=== PATIENT | male | born 1955 | race Hispanic/Latino ===

== ENCOUNTER 2018-01-20 22:39 | Observation (INO) | payer MEDICAID ==
[2018-01-20 22:52] VITALS: BMI 25.9
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
[2018-01-20 23:56] LABS: BASO # 0.05 K/mm3 (0.0-2.0); BASO % 0.7 % (0.0-3.0); EOS # 0.5 (0.0-0.7); GRAN # 3.57 (1.4-6.5); GRAN % 51.2 % (50.0-68.0); LYMPH # 2.3 (1.2-3.4); LYMPH % 32.3 % (22.0-35.0); MEAN CELL VOLUME 90.3 fl (80.0-105.0); MEAN CORPUSCULAR HEMOGLOBIN 30.4 pg (25.0-35.0); MEAN CORPUSCULAR HGB CONC 33.6 g/dl (31.0-37.0); MEAN PLATELET VOLUME 8.6 fl (7.0-11.0); MONO # 0.6 (0.1-0.6); MONO % 8.8 % (1.0-6.0); RBC 3.62 10^6/uL (3.5-6.1); RED CELL DISTRIBUTION WIDTH 13.8 % (11.5-14.5)
[2018-01-21 00:05] LABS: PH,URINE 6.5 (4.7-8.0); URINE BILIRUBIN NEGATIVE (NEGATIVE); URINE BLOOD NEGATIVE (NEGATIVE); URINE GLUCOSE (UA) NEGATIVE (NEGATIVE); URINE LEUKOCYTE ESTERASE NEGATIVE Leu/uL (NEGATIVE); URINE PROTEIN NEGATIVE mg/dL (<30 mg/dL); URINE UROBILINOGEN 0.2 E.U./dL (<1 E.U./dL)
[2018-01-21 00:09] LABS: ALB/GLOB RATIO 1.3 (1.1-1.8); ALT/SGPT 31 U/L (7-56); AST/SGOT 35 U/L (17-59); BLOOD UREA NITROGEN 21 mg/dL (7-21); CALCIUM 8.8 mg/dL (8.4-10.5); GFR NON-AFRICAN AMERICAN > 60
[2018-01-21 00:11] LABS: URINE APPEARANCE CLEAR (CLEAR); URINE COLOR YELLOW (YELLOW)
[2018-01-21] MEDS ORDERED: Vancomycin 1gm in NS 250ml 1 GM/250 ML BAG IVPB STA (00:36)
[2018-01-21] MEDS ORDERED: Piperacillin/Tazobact 3.375 gm 100 ML IV STA (00:36)
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
[2018-01-21] MEDS: Piperacillin/Tazobact 3.375 gm 100 ML IVPB SCH ×2 (06:24→12:50)
[2018-01-21 06:43] LABS: BASO # 0.05 K/mm3 (0.0-2.0); BASO % 0.8 % (0.0-3.0); EOS # 0.5 (0.0-0.7); EOS % 7.8 % (1.5-5.0); GRAN # 3.27 (1.4-6.5); HEMOGLOBIN 10.4 g/dL (14.0-18.0); LYMPH # 1.9 (1.2-3.4); MEAN CELL VOLUME 91.8 fl (80.0-105.0); MEAN CORPUSCULAR HEMOGLOBIN 30.6 pg (25.0-35.0); MEAN CORPUSCULAR HGB CONC 33.3 g/dl (31.0-37.0); MEAN PLATELET VOLUME 8.9 fl (7.0-11.0); MONO # 0.7 (0.1-0.6); MONO % 11.4 % (1.0-6.0); RBC 3.4 10^6/uL (3.5-6.1); RED CELL DISTRIBUTION WIDTH 14.1 % (11.5-14.5); WHITE BLOOD COUNT 6.4 10^3/ul (4.5-11.0)
[2018-01-21 07:09] LABS: ALB/GLOB RATIO 1.2 (1.1-1.8); ALBUMIN 3.5 g/dL (3.0-4.8); ALT/SGPT 29 U/L (7-56); AST/SGOT 32 U/L (17-59); BLOOD UREA NITROGEN 18 mg/dL (7-21); CALCIUM 8.4 mg/dL (8.4-10.5); GFR NON-AFRICAN AMERICAN > 60
[2018-01-21] MEDS: Vancomycin 1gm in NS 250ml 1 GM/250 ML BAG IVPB SCH (10:25)
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
[2018-01-21 17:21] VITALS: RESP 20
[2018-01-21] MEDS: cefTRIAXone 1 gm 1 GM/100 ML BAG IVPB SCH (17:58)
[2018-01-22 07:54] LABS: BASO # 0.06 K/mm3 (0.0-2.0); BASO % 1.1 % (0.0-3.0); EOS # 0.5 (0.0-0.7); GRAN # 2.84 (1.4-6.5); GRAN % 50.4 % (50.0-68.0); HEMOGLOBIN 10.9 g/dL (14.0-18.0); LYMPH # 1.7 (1.2-3.4); LYMPH % 29.7 % (22.0-35.0); MEAN CELL VOLUME 91.2 fl (80.0-105.0); MEAN CORPUSCULAR HEMOGLOBIN 29.9 pg (25.0-35.0); MEAN CORPUSCULAR HGB CONC 32.8 g/dl (31.0-37.0); MEAN PLATELET VOLUME 8.9 fl (7.0-11.0); MONO # 0.6 (0.1-0.6); MONO % 10.8 % (1.0-6.0); RBC 3.64 10^6/uL (3.5-6.1); RED CELL DISTRIBUTION WIDTH 13.9 % (11.5-14.5); WHITE BLOOD COUNT 5.6 10^3/ul (4.5-11.0)
[2018-01-22] MEDS ORDERED: Multivitamin With Minerals Tab PO SCH (08:00)
[2018-01-22 08:34] LABS: ALB/GLOB RATIO 1.1 (1.1-1.8); ALBUMIN 3.6 g/dL (3.0-4.8); ALT/SGPT 28 U/L (7-56); AST/SGOT 39 U/L (17-59); BLOOD UREA NITROGEN 18 mg/dL (7-21); CALCIUM 8.8 mg/dL (8.4-10.5); GFR NON-AFRICAN AMERICAN > 60
[2018-01-22 09:03] VITALS: PULSE 61; TEMP 97.7; O2SAT 95
[2018-01-22] MEDS: Vancomycin 1gm in NS 250ml 1 GM/250 ML BAG IVPB SCH (09:39)
[2018-01-22] MEDS: cefTRIAXone 1 gm 1 GM/100 ML BAG IVPB SCH (09:39)
[2018-01-22 09:45] VITALS: BP 122/76
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
--- NOTE | 2018-01-22 12:54 | CP.PCM.PN ---
Objective - Vital Signs/Intake and Output Vital Signs (last 24 hours): Temp Pulse Resp BP Pulse Ox 97.7 F 61 20 122/76 95 01/22/18 06:00 01/22/18 06:00 01/22/18 06:00 01/22/18 09:40 01/22/18 06:00 Intake and Output: 01/22/18 01/22/18 06:59 18:59 Intake Total 1260 Output Total 2050 Balance -790 - Medications Medications: Current Medications Amlodipine Besylate (Norvasc) 2.5 mg PO DAILY [facility] Last Admin: 01/22/18 09:40 Dose: 2.5 mg Furosemide (Lasix) 40 mg PO DAILY [facility] Last Admin: 01/22/18 09:38 Dose: 40 mg Vancomycin HCl (Vancomycin 1gm) 1 gm in 250 mls @ 167 mls/hr IVPB DAILY [facility]; Protocol Last Admin: 01/22/18 09:39 Dose: 167 mls/hr Ceftriaxone Sodium (Rocephin 1 Gram Ivpb) 1 gm in 100 mls @ 100 mls/hr IVPB DAILY [facility]; Protocol Last Admin: 01/22/18 09:39 Dose: 100 mls/hr Ibuprofen (Motrin Tab) 600 mg PO Q6H PRN PRN Reason: Pain, moderate (4-7) Last Admin: 01/21/18 23:47 Dose: 600 mg Multivitamins/Minerals (Therapeutic-M Tab) 1 tab PO 0800 [facility] Last Admin: 01/22/18 09:39 Dose: 1 tab Nicotine (Nicoderm Cq) 1 patch TD DAILY [facility] Last Admin: 01/22/18 09:42 Dose: Not Given Risperidone (Risperdal Tab) 2 mg PO HS [facility]; Protocol Last Admin: 01/21/18 21:30 Dose: 2 mg Risperidone (Risperdal Tab) 1 mg PO 0730 [facility]; Protocol Last Admin: 01/22/18 09:42 Dose: 1 mg Tramadol HCl (Ultram) 25 mg PO TID PRN PRN Reason: Pain, severe (8-10) Last Admin: 01/22/18 09:41 Dose: 25 mg - Labs Labs: 01/22/18 07:30 01/22/18 07:30
--- NOTE | 2018-01-22 13:57 | RAD ---
Date of service: 01/21/2018 PROCEDURE: Radiographs of the left tibia and fibula. HISTORY: left leg ulcer COMPARISON: None available. TECHNIQUE: Frontal and lateral views obtained. FINDINGS: BONES: No evidence of acute osteomyelitis. JOINT SPACES: Unremarkable. OTHER FINDINGS: Soft tissue ulceration at the junction of the middle and distal thirds the visualize lower extremity without adjacent cortical erosions or other findings consequence. Diffuse lower extremity edema. IMPRESSION: Large T2 ulcer marked on the study for review without adjacent or underlying osteomyelitis. Diffuse lower extremity edema.
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
--- NOTE | 2018-01-23 16:28 | US ---
HISTORY: Leg pain and swelling. Evaluate for DVT PHYSICIAN(S): Ashish Beard MD. TECHNIQUE: Duplex sonography and color-flow Doppler with graded compression were used to evaluate the deep venous systems of both lower extremities. FINDINGS: The visualized deep venous systems of both lower extremities are sonographically normal and compressible. Normal wave forms and augmentation are seen. There is no sonographic evidence for deep venous thrombosis in the visualized segments of both lower extremities. IMPRESSION: No sonographic evidence for deep venous thrombosis in the visualized segments of both lower extremities.
--- NOTE | 2018-01-23 16:51 | CP.PCM.DIS ---
Provider - Provider Date of Admission: 01/21/18 00:45 Attending physician: Roderick Miller MD Primary care physician: Dr Diya Loyd Consults: podiatry ID Time Spent in preparation of Discharge (in minutes): 45 Hospital Course - Lab Results Lab Results: Micro Results 01/21/18 00:48 Leg - Left Gram Stain - Final 01/21/18 00:48 Leg - Left Wound Culture - Preliminary Gram Positive Cocci 01/21/18 00:20 Blood-Venous Blood Culture - Preliminary NO GROWTH AFTER 48 HOURS 01/20/18 23:44 Blood-Venous Blood Culture - Preliminary NO GROWTH AFTER 48 HOURS 01/20/18 23:50 Urine Urine Culture - Final No Growth (<1,000 CFU/ML) Most Recent Lab Values WBC 5.6 10^3/ul (4.5-11.0) 01/22/18 07:30 RBC 3.64 10^6/uL (3.5-6.1) 01/22/18 07:30 Hgb 10.9 g/dL (14.0-18.0) L 01/22/18 07:30 Hct 33.2 % (42.0-52.0) L 01/22/18 07:30 MCV 91.2 fl (80.0-105.0) 01/22/18 07:30 MCH 29.9 pg (25.0-35.0) 01/22/18 07:30 MCHC 32.8 g/dl (31.0-37.0) 01/22/18 07:30 RDW 13.9 % (11.5-14.5) 01/22/18 07:30 Plt Count 160 10^3/uL (120.0-450.0) 01/22/18 07:30 MPV 8.9 fl (7.0-11.0) 01/22/18 07:30 Gran % 50.4 % (50.0-68.0) 01/22/18 07:30 Lymph % (Auto) 29.7 % (22.0-35.0) 01/22/18 07:30 [place] % (Auto) 10.8 % (1.0-6.0) H 01/22/18 07:30 Eos % (Auto) 8.0 % (1.5-5.0) H 01/22/18 07:30 Baso % (Auto) 1.1 % (0.0-3.0) 01/22/18 07:30 Gran # 2.84 (1.4-6.5) 01/22/18 07:30 Lymph # (Auto) 1.7 (1.2-3.4) 01/22/18 07:30 [place] # (Auto) 0.6 (0.1-0.6) 01/22/18 07:30 Eos # (Auto) 0.5 (0.0-0.7) 01/22/18 07:30 Baso # (Auto) 0.06 K/mm3 (0.0-2.0) 01/22/18 07:30 ESR 24 mm/hr (0.00-15.0) H 01/22/18 07:30 Sodium 137 mmol/L (132-148) 01/22/18 07:30 Potassium 4.0 mmol/L (3.6-5.0) 01/22/18 07:30 Chloride 103 mmol/L (98-107) 01/22/18 07:30 Carbon Dioxide 28 mmol/L (21-33) 01/22/18 07:30 Anion Gap 10 (10-20) 01/22/18 07:30 BUN 18 mg/dL (7-21) 01/22/18 07:30 Creatinine 0.9 mg/dl (0.8-1.5) 01/22/18 07:30 Est GFR ( Amer) > 60 01/22/18 07:30 Est GFR (Non-Af Amer) > 60 01/22/18 07:30 Random Glucose 105 mg/dL (70-110) 01/22/18 07:30 Calcium 8.8 mg/dL (8.4-10.5) 01/22/18 07:30 Phosphorus 4.8 mg/dL (2.5-4.5) H 01/22/18 07:30 Magnesium 2.0 mg/dL (1.7-2.2) 01/22/18 07:30 Total Bilirubin 0.4 mg/dL (0.2-1.3) 01/22/18 07:30 AST 39 U/L (17-59) 01/22/18 07:30 ALT 28 U/L (7-56) 01/22/18 07:30 Alkaline Phosphatase 64 U/L (38-126) 01/22/18 07:30 Total Protein 6.8 g/dL (5.8-8.3) 01/22/18 07:30 Albumin 3.6 g/dL (3.0-4.8) 01/22/18 07:30 Globulin 3.2 gm/dL 01/22/18 07:30 Albumin/Globulin Ratio 1.1 (1.1-1.8) 01/22/18 07:30 Urine Color Yellow (YELLOW) 01/20/18 23:50 Urine Appearance Clear (CLEAR) 01/20/18 23:50 Urine pH 6.5 (4.7-8.0) 01/20/18 23:50 Ur Specific [place] 1.020 (1.005-1.035) 01/20/18 23:50 Urine Protein Negative mg/dL (<30 mg/dL) 01/20/18 23:50 Urine Glucose (UA) Negative mg/dL (NEGATIVE) 01/20/18 23:50 Urine Ketones Negative mg/dL (NEGATIVE) 01/20/18 23:50 Urine Blood Negative (NEGATIVE) 01/20/18 23:50 Urine Nitrate Negative (NEGATIVE) 01/20/18 23:50 Urine Bilirubin Negative (NEGATIVE) 01/20/18 23:50 Urine Urobilinogen 0.2 E.U./dL (<1 E.U./dL) 01/20/18 23:50 Ur Leukocyte Esterase Negative Cammie/uL (NEGATIVE) 01/20/18 23:50 - Hospital Course Hospital Course: 62 yo M with PMHx of bipolar disorder, schizophrenia, anxiety, depression, and prostate cancer (in remission) [place] [facility] [place] cellulitis. Patient was previously [place] [facility] [place] received IV antibiotics and then discharged home on oral abx which he said it's not effective. Patient was admitted for celllitis amnagement. Doppler LLE was negative for DVT. LL Xray negative for osteomyelitis. Patient was started on IV antiotic recommended by ID physician. Podiatry was the patient and patient received wound care and dressing. Wound was 3x5cm in diameter, clean, no drainage with no signs of infection. wound culture is positive for gram positive cocci. Podiatry recommended outpatient wound care. ID recommended Clindamycin 300 mg 3 times a day for 10 days. Patient was clinically optimized, afebrile, ambulating with no difficulty and was stable for discharge today. On discharge: Please follow up with your Primary Care Physician, Dr Diya Loyd within 3-5 days of discharge. Please follow up with your wound care center within 3-5 days Please resume your home meds as prescribed by your doctor Please keep watching your blood sugar daily and stay hydrated. Eat all meals. Please take Clindamycin 300 mg 3 times a day for 10 days as prescribed by infectious disease doctor Please follow a diabetic diet If your symptoms return, please return to nearest emergency room. Discharge Exam - Head Exam Head Exam: ATRAUMATIC, NORMOCEPHALIC - Eye Exam Eye Exam: Normal appearance, PERRL Pupil Exam: NORMAL ACCOMODATION - ENT Exam ENT Exam: Normal Exam, Normal Oropharynx - Neck Exam Neck exam: Full Rom, Normal Inspection - Respiratory Exam Respiratory Exam: Clear to PA & Lateral, NORMAL BREATHING PATTERN. absent: Rales, Rhonchi, Wheezes - Cardiovascular Exam Cardiovascular Exam: REGULAR RHYTHM, +S1, +S2 - GI/Abdominal Exam GI & Abdominal Exam: Normal Bowel Sounds, Soft - Extremities Exam Extremities exam: normal capillary refill, pedal pulses present Additional comments: left lower thigh wound, clean, no drainage, no signs of infection b/l LL edema - Back Exam Back exam: FULL ROM, NORMAL INSPECTION - Neurological Exam Neurological exam: Alert, CN II-XII Intact, Normal Gait, Oriented x3 - Psychiatric Exam Psychiatric exam: Normal Affect, Normal Mood - Skin Skin Exam: Dry, Erythema Additional comments: skin ulcer LLL Discharge Plan - Discharge Medications Prescriptions: amLODIPine [Norvasc] 2.5 mg PO DAILY #30 tab Clindamycin [Cleocin] 300 mg PO TID #30 cap Furosemide [Lasix] 40 mg PO DAILY #30 tab - Follow Up Plan Condition: STABLE Disposition: HOME/ ROUTINE Instructions: Cellulitis (Skin Infection), Adult (DC) Additional Instructions: Please follow up with your Primary Care Physician, Dr Diya Loyd within 3-5 days of discharge. Please follow up with your wound care center within 3-5 days Please resume your home meds as prescribed by your doctor Please keep watching your blood sugar daily and stay hydrated. Eat all meals. Please take Clindamycin 300 mg 3 times a day for 10 days as prescribed by jono sparks disease doctor Please follow a diabetic diet If your symptoms return, please return to nearest emergency room.
== END 2018-01-22 15:54 | disposition home or self-care (01) ==
LOC: ED 22:39 → ERH 01-21 00:45 → 3RSO 01-21 02:20
PROVIDERS: ADMIT Internal Medicine; ATTEND Internal Medicine
DX: L03.116 Cellulitis of left lower limb (principal); L03.115 Cellulitis of right lower limb; F20.9 Schizophrenia, unspecified; F31.9 Bipolar disorder, unspecified; I10 Essential (primary) hypertension; Z85.46 Personal history of malignant neoplasm of prostate; Z90.49 Acquired absence of other specified parts of digestive tract; F17.210 Nicotine dependence, cigarettes, uncomplicated; Z86.19 Personal history of other infectious and parasitic diseases; B95.7 Other staphylococcus as the cause of diseases classified elsewhere
CPT/HCPCS: 36415; 73590; 80053; 81003; 83735; 84100; 85025; 85651; 87040; 87070; 87086; 87181; 93970; 99285; G0378; J0696; J2543

== ENCOUNTER 2018-02-04 19:29 | Inpatient (IN) | payer MEDICAID, OTHER ==
[2018-02-04] MEDS ORDERED: CeFAZolin 1 gm in NS 100ml IVPB STA (20:27)
[2018-02-04] MEDS ORDERED: ceFAZolin 1 gm in NS 1 GM/100 ML BAG IVPB STA (20:31)
[2018-02-04 20:48] LABS: VENOUS BLOOD GAS BASE EXCESS 3.2 mmol/L (0.0-2.0); VENOUS BLOOD GAS PO2 80 mm/Hg (30-55); VENOUS BLOOD PH 7.43 (7.32-7.43)
[2018-02-04 20:50] LABS: BASO # 0.05 K/mm3 (0.0-2.0); EOS # 0.4 (0.0-0.7); EOS % 7.3 % (1.5-5.0); GRAN # 2.36 (1.4-6.5); GRAN % 47.6 % (50.0-68.0); HEMOGLOBIN 12.5 g/dL (14.0-18.0); LYMPH # 1.8 (1.2-3.4); LYMPH % 35.6 % (22.0-35.0); MEAN CELL VOLUME 91.3 fl (80.0-105.0); MEAN CORPUSCULAR HEMOGLOBIN 31.2 pg (25.0-35.0); MEAN CORPUSCULAR HGB CONC 34.2 g/dl (31.0-37.0); MEAN PLATELET VOLUME 8.7 fl (7.0-11.0); MONO # 0.4 (0.1-0.6); MONO % 8.5 % (1.0-6.0); RBC 4.01 10^6/uL (3.5-6.1); RED CELL DISTRIBUTION WIDTH 14.2 % (11.5-14.5)
[2018-02-04] MEDS ORDERED: Enoxaparin 80 mg Syringe SC STA (20:50)
[2018-02-04 21:06] LABS: INR 0.9; PARTIAL THROMBOPLASTIN TIME 28.5 Seconds (25.1-36.5); PROTHROMBIN TIME 10.2 SECONDS (9.4-12.5)
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
[2018-02-04 21:22] LABS: ALB/GLOB RATIO 1.2 (1.1-1.8); ALBUMIN 4.3 g/dL (3.0-4.8); ALT/SGPT 22 U/L (7-56); AST/SGOT 25 U/L (17-59); BLOOD UREA NITROGEN 16 mg/dL (7-21); CALCIUM 9.2 mg/dL (8.4-10.5); GFR NON-AFRICAN AMERICAN > 60
[2018-02-04 22:29] LABS: BARBITURATES, UR NEGATIVE (NEGATIVE); BENZODIAZEPINES, UR NEGATIVE (NEGATIVE); OPIATES, UR NEGATIVE (NEGATIVE); PHENCYCLIDINE, UR NEGATIVE (NEGATIVE)
[2018-02-05] MEDS: Vancomycin 1gm in NS 250ml 1 GM/250 ML BAG IVPB SCH ×2 (00:48→10:22)
[2018-02-05 01:25] LABS: URINE BILIRUBIN NEGATIVE (NEGATIVE); URINE BLOOD NEGATIVE (NEGATIVE); URINE GLUCOSE (UA) NEGATIVE (NEGATIVE); URINE LEUKOCYTE ESTERASE NEGATIVE Leu/uL (NEGATIVE); URINE PROTEIN NEGATIVE mg/dL (<30 mg/dL)
[2018-02-05 01:36] LABS: URINE APPEARANCE CLEAR (CLEAR); URINE COLOR YELLOW (YELLOW)
[2018-02-05 03:08] VITALS: BMI 26.1
[2018-02-05] MEDS ORDERED: Influenza Vaccine 60 mcg/0.5 mL SYR (4YR UP) IM ONE (03:08)
[2018-02-05] MEDS ORDERED: Pneumococcal 23-Valent Vaccine IM ONE (03:08)
[2018-02-05] MEDS: Pantoprazole 40 mg EC Tab PO SCH (05:22)
[2018-02-05] MEDS ORDERED: Piperacillin/Tazobact 3.375 gm 100 ML IVPB SCH ×2 (06:00)
[2018-02-05] MEDS: Multivitamin Therapeutic Tab PO SCH (08:22)
[2018-02-05 08:31] LABS: BASO # 0.04 K/mm3 (0.0-2.0); BASO % 0.9 % (0.0-3.0); EOS # 0.3 (0.0-0.7); EOS % 7.8 % (1.5-5.0); GRAN # 1.97 (1.4-6.5); GRAN % 45.3 % (50.0-68.0); HEMOGLOBIN 11.5 g/dL (14.0-18.0); LYMPH # 1.6 (1.2-3.4); LYMPH % 36.3 % (22.0-35.0); MEAN CELL VOLUME 91.6 fl (80.0-105.0); MEAN CORPUSCULAR HEMOGLOBIN 30.1 pg (25.0-35.0); MEAN CORPUSCULAR HGB CONC 32.9 g/dl (31.0-37.0); MEAN PLATELET VOLUME 9.3 fl (7.0-11.0); MONO # 0.4 (0.1-0.6); MONO % 9.7 % (1.0-6.0); RBC 3.82 10^6/uL (3.5-6.1); RED CELL DISTRIBUTION WIDTH 14.6 % (11.5-14.5); WHITE BLOOD COUNT 4.4 10^3/ul (4.5-11.0)
[2018-02-05 08:37] LABS: INR 0.93; PARTIAL THROMBOPLASTIN TIME 30.6 Seconds (25.1-36.5); PROTHROMBIN TIME 10.7 SECONDS (9.4-12.5)
[2018-02-05 08:46] LABS: ALB/GLOB RATIO 1.1 (1.1-1.8); ALBUMIN 3.7 g/dL (3.0-4.8); ALT/SGPT 19 U/L (7-56); AST/SGOT 21 U/L (17-59); BLOOD UREA NITROGEN 17 mg/dL (7-21); CALCIUM 8.8 mg/dL (8.4-10.5); GFR NON-AFRICAN AMERICAN > 60
[2018-02-05] MEDS: Enoxaparin 120 mg Syringe SC SCH (09:26)
[2018-02-05] MEDS: Mupirocin 2% Ointment 15 GM TUBE TOP SCH ×2 (10:23→18:24)
--- NOTE | 2018-02-05 11:39 | CARD ---
APPROVED REPORT Date of service: 02/04/2018 EKG Measurement Heart [id number] <Conclusion> Sinus tachycardia Otherwise normal ECG
[2018-02-05] MEDS: Vitamins A & D Oint UD Foilpak TOP SCH (13:30)
--- NOTE | 2018-02-05 17:41 | RAD ---
Date of service: 02/04/2018 HISTORY: Sepsis Patient COMPARISON: No prior. FINDINGS: LUNGS: No active pulmonary disease. PLEURA: No significant pleural effusion identified, no pneumothorax apparent. CARDIOVASCULAR: Normal. OSSEOUS STRUCTURES: No significant abnormalities. VISUALIZED UPPER ABDOMEN: Normal. OTHER FINDINGS: None. IMPRESSION: No active disease.
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
[2018-02-06] MEDS: Pantoprazole 40 mg EC Tab PO SCH (05:40)
[2018-02-06] MEDS: Multivitamin Therapeutic Tab PO SCH (08:03)
[2018-02-06 08:39] LABS: BASO # 0.03 K/mm3 (0.0-2.0); BASO % 0.6 % (0.0-3.0); EOS # 0.4 (0.0-0.7); EOS % 6.9 % (1.5-5.0); GRAN # 2.97 (1.4-6.5); GRAN % 54.9 % (50.0-68.0); HEMOGLOBIN 12.7 g/dL (14.0-18.0); LYMPH # 1.6 (1.2-3.4); LYMPH % 29.3 % (22.0-35.0); MEAN CELL VOLUME 91.3 fl (80.0-105.0); MEAN CORPUSCULAR HEMOGLOBIN 31.7 pg (25.0-35.0); MEAN CORPUSCULAR HGB CONC 34.7 g/dl (31.0-37.0); MEAN PLATELET VOLUME 8.9 fl (7.0-11.0); MONO # 0.5 (0.1-0.6); MONO % 8.3 % (1.0-6.0); RBC 4.01 10^6/uL (3.5-6.1); RED CELL DISTRIBUTION WIDTH 14.4 % (11.5-14.5); WHITE BLOOD COUNT 5.4 10^3/ul (4.5-11.0)
[2018-02-06 08:48] LABS: ALB/GLOB RATIO 1.2 (1.1-1.8); ALBUMIN 3.7 g/dL (3.0-4.8); ALT/SGPT 16 U/L (7-56); AST/SGOT 21 U/L (17-59); BLOOD UREA NITROGEN 14 mg/dL (7-21); CALCIUM 8.5 mg/dL (8.4-10.5); GFR NON-AFRICAN AMERICAN > 60
[2018-02-06 08:51] LABS: INR 1.01; PARTIAL THROMBOPLASTIN TIME 26.9 Seconds (25.1-36.5); PROTHROMBIN TIME 11.6 SECONDS (9.4-12.5)
[2018-02-06] MEDS: Enoxaparin 120 mg Syringe SC SCH (09:51)
[2018-02-06] MEDS: Vitamins A & D Oint UD Foilpak TOP SCH ×2 (10:07→13:56)
[2018-02-06] MEDS: Mupirocin 2% Ointment 15 GM TUBE TOP SCH ×3 (10:29→18:14)
--- NOTE | 2018-02-06 13:34 | US ---
HISTORY: Leg pain and swelling. Evaluate for DVT PHYSICIAN(S): Ashish Beard MD. TECHNIQUE: Duplex sonography and color-flow Doppler with graded compression were used to evaluate the deep venous systems of both lower extremities. The exam is somewhat limited by edema FINDINGS: The visualized deep venous systems of both lower extremities are sonographically normal and compressible. Normal wave forms and augmentation are seen. There is no sonographic evidence for deep venous thrombosis in the visualized segments of both lower extremities. IMPRESSION: No sonographic evidence for deep venous thrombosis in the visualized segments of both lower extremities.
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
--- NOTE | 2018-02-06 18:29 | CP.PCM.PN ---
Subjective - Date & Time of Evaluation Date of Evaluation: 02/06/18 Time of Evaluation: 18:24 - Subjective Subjective: Podiatry progress note for Dr. Savage, 62 yomale seen at [facility] for left lower leg ulceration that has progressed to cellulitis. Denies any pain to the area. states the dressing had fell off yesterday. denies acute overnight events.Patient denies f/n/v/sob. Objective - Vital Signs/Intake and Output Vital Signs (last 24 hours): Temp Pulse Resp BP Pulse Ox 98.6 F 71 20 123/72 97 02/06/18 17:09 02/06/18 17:09 02/06/18 17:09 02/06/18 17:09 02/06/18 17:17 Intake and Output: 02/06/18 02/06/18 06:59 18:59 Intake Total 2880 Output Total 3000 Balance -120 - Medications Medications: Current Medications Acetaminophen (Tylenol 325mg Tab) 650 mg PO Q6H PRN PRN Reason: Pain, Mild (1-3) Amlodipine Besylate (Norvasc) 2.5 mg PO DAILY [facility] Last Admin: 02/06/18 09:49 Dose: 2.5 mg Enoxaparin Sodium (Lovenox) 110 mg SC DAILY [facility]; Protocol Last Admin: 02/06/18 09:51 Dose: 110 mg Escitalopram Oxalate (Lexapro) 20 mg PO DAILY [facility] Last Admin: 02/06/18 09:49 Dose: 20 mg Folic Acid (Folic Acid) 1 mg PO DAILY [facility] Last Admin: 02/06/18 09:48 Dose: 1 mg Furosemide (Lasix) 40 mg PO DAILY [facility] Last Admin: 02/06/18 09:48 Dose: 40 mg Lorazepam (Ativan) 1 mg IVP Q4 [facility]; Protocol PRN Reason: Agitation Multivitamins (Thera Tab) 1 tab PO 0800 [facility] Last Admin: 02/06/18 08:03 Dose: 1 tab Mupirocin (Bactroban Ointment) 0 gm TOP BID [facility] Last Admin: 02/06/18 18:14 Dose: 1 applic Nicotine (Nicoderm Cq) 1 patch TD DAILY [facility] Last Admin: 02/06/18 09:58 Dose: Not Given Pantoprazole Sodium (Protonix Ec Tab) 40 mg PO 0600 [facility] Last Admin: 02/06/18 05:40 Dose: 40 mg Risperidone (Risperdal Tab) 2 mg PO DAILY [facility]; Protocol Last Admin: 02/06/18 09:49 Dose: 2 mg Thiamine HCl (Vitamin B1 Tab) 100 mg PO DAILY [facility] Last Admin: 02/06/18 09:50 Dose: 100 mg Vitamin A (Vitamin A & D Oint Ud Foilpak) 1 ea TOP DAILY [facility] Last Admin: 02/06/18 13:56 Dose: Not Given Warfarin Sodium (Coumadin) 4 mg PO 1800 [facility]; Protocol Last Admin: 02/06/18 18:13 Dose: 4 mg - Labs Labs: 02/06/18 07:00 02/06/18 07:00 PT 11.6 SECONDS (9.4-12.5) 02/06/18 07:00 INR 1.01 02/06/18 07:00 APTT 26.9 Seconds (25.1-36.5) 02/06/18 07:00 - Constitutional Appears: Well, Non-toxic, No Acute Distress - Head Exam Head Exam: ATRAUMATIC, NORMOCEPHALIC - Extremities Exam Additional comments: left lower extremity exam: vascular: Dp/pt palpable bilaterally, +2 pitting edema noted both lower extremities L>R. Neuro: decreased protective sensation derm: full thickeness ulceration noted on the anterior mid left lower leg measuring approximately 5 x 3.5 x 0.3, base is fibrogranular, minimal serous drarinaged noted, no purulence, no maldooro, no underlying abscess formation, no probe to bone. ortho: pain on palpation to the area surroundimg the ulcer - Neurological Exam Neurological Exam: Alert, Awake, Oriented x3 - Psychiatric Exam Psychiatric exam: Normal Affect - Skin Skin Exam: Normal Color Assessment and Plan - Assessment and Plan (Free Text) Assessment: 62 yo male with past medical hsitory of alcohol abuse seen at [facility] for lower leg ulceration on the left side. Plan: Patient seen and evaluated Plan discussed in detail with the attending, Dr Savage Absent leukocytosis, afebrile Wound cleansed with saline and dressing with bactroban, xeroform and DSD. Arterial doppler b/l ordered; read pending Wound cultures of the left leg pending Patient will be seen and followed daily. Thank you for the consult.
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
[2018-02-07] MEDS: Pantoprazole 40 mg EC Tab PO SCH (06:53)
[2018-02-07 07:19] LABS: BASO # 0.03 K/mm3 (0.0-2.0); BASO % 0.6 % (0.0-3.0); EOS # 0.4 (0.0-0.7); EOS % 7.2 % (1.5-5.0); GRAN # 2.83 (1.4-6.5); HEMOGLOBIN 13.4 g/dL (14.0-18.0); LYMPH # 1.3 (1.2-3.4); LYMPH % 25.6 % (22.0-35.0); MEAN CELL VOLUME 91.6 fl (80.0-105.0); MEAN CORPUSCULAR HEMOGLOBIN 30.2 pg (25.0-35.0); MEAN PLATELET VOLUME 9.1 fl (7.0-11.0); MONO # 0.4 (0.1-0.6); MONO % 8.6 % (1.0-6.0); RBC 4.43 10^6/uL (3.5-6.1); WHITE BLOOD COUNT 4.9 10^3/ul (4.5-11.0)
[2018-02-07 07:20] LABS: ALB/GLOB RATIO 1.1 (1.1-1.8); ALBUMIN 4.1 g/dL (3.0-4.8); ALT/SGPT 16 U/L (7-56); AST/SGOT 27 U/L (17-59); BLOOD UREA NITROGEN 24 mg/dL (7-21); CALCIUM 9.1 mg/dL (8.4-10.5); GFR NON-AFRICAN AMERICAN > 60
[2018-02-07 07:21] LABS: INR 0.92; PROTHROMBIN TIME 10.6 SECONDS (9.4-12.5)
[2018-02-07] MEDS: Multivitamin Therapeutic Tab PO SCH (08:53)
[2018-02-07] MEDS: Enoxaparin 120 mg Syringe SC SCH (10:34)
--- NOTE | 2018-02-07 13:22 | CP.PCM.PN ---
<Cristin Yadav - Last Filed: 02/07/18 13:31> Subjective - Date & Time of Evaluation Date of Evaluation: 02/07/18 Time of Evaluation: 13:15 - Subjective Subjective: Podiatry progress note for Dr. Savage, 62 yo male seen and evaluated for left lower leg ulceration with cellulitis. Patient is resting comfortably and in NAD. Patient denies any pain to the LLE. Denies N/V/F/SOB. Objective - Vital Signs/Intake and Output Vital Signs (last 24 hours): Temp Pulse Resp BP Pulse Ox 97.6 F 69 18 124/78 94 L 02/07/18 08:17 02/07/18 08:17 02/07/18 08:17 02/07/18 10:34 02/07/18 08:17 - Medications Medications: Current Medications Acetaminophen (Tylenol 325mg Tab) 650 mg PO Q6H PRN PRN Reason: Pain, Mild (1-3) Last Admin: 02/07/18 08:53 Dose: 650 mg Amlodipine Besylate (Norvasc) 2.5 mg PO DAILY [facility] Last Admin: 02/07/18 10:33 Dose: 2.5 mg Enoxaparin Sodium (Lovenox) 110 mg SC DAILY [facility]; Protocol Last Admin: 02/07/18 10:34 Dose: 110 mg Escitalopram Oxalate (Lexapro) 20 mg PO DAILY [facility] Last Admin: 02/07/18 10:34 Dose: 20 mg Folic Acid (Folic Acid) 1 mg PO DAILY [facility] Last Admin: 02/07/18 10:35 Dose: 1 mg Furosemide (Lasix) 40 mg PO DAILY [facility] Last Admin: 02/07/18 10:34 Dose: 40 mg Lorazepam (Ativan) 1 mg IVP Q4 PRN; Protocol PRN Reason: Agitation Last Admin: 02/06/18 22:59 Dose: 1 mg Multivitamins (Thera Tab) 1 tab PO 0800 [facility] Last Admin: 02/07/18 08:53 Dose: 1 tab Mupirocin (Bactroban Ointment) 0 gm TOP BID [facility] Last Admin: 02/06/18 18:14 Dose: 1 applic Nicotine (Nicoderm Cq) 1 patch TD DAILY [facility] Last Admin: 02/07/18 10:33 Dose: Not Given Pantoprazole Sodium (Protonix Ec Tab) 40 mg PO 0600 [facility] Last Admin: 02/07/18 06:53 Dose: 40 mg Risperidone (Risperdal Tab) 2 mg PO DAILY [facility]; Protocol Last Admin: 02/07/18 10:33 Dose: 2 mg Thiamine HCl (Vitamin B1 Tab) 100 mg PO DAILY [facility] Last Admin: 02/07/18 10:33 Dose: 100 mg Vitamin A (Vitamin A & D Oint Ud Foilpak) 1 ea TOP DAILY [facility] Last Admin: 02/06/18 13:56 Dose: Not Given Warfarin Sodium (Coumadin) 4 mg PO 1800 [facility]; Protocol Last Admin: 02/06/18 18:13 Dose: 4 mg - Labs Labs: 02/07/18 06:30 02/07/18 06:30 PT 10.6 SECONDS (9.4-12.5) 02/07/18 06:30 INR 0.92 02/07/18 06:30 APTT 27.0 Seconds (25.1-36.5) 02/07/18 06:30 - Constitutional Appears: Well, No Acute Distress - Head Exam Head Exam: ATRAUMATIC, NORMOCEPHALIC - Extremities Exam Additional comments: LLE focused exam: Vasc: DP/PT pulses palpable bilaterally, +2 pitting edema noted both lower extremities L>R. Ortho: Pain upon palpation bari-wound, MMT 5/5, tenderness upon calf compression Neuro: Decreased protective sensation, gross sensation intact Derm: Full thickeness ulceration noted to the anterior aspect of the L leg measuring approximately 5 x 3.5 x 0.3, base is fibrogranular, minimal serous drainage noted, no purulence, no malodor, no tunneling, no tracking, no probe to bone. - Neurological Exam Neurological Exam: Alert, Awake - Psychiatric Exam Psychiatric exam: Normal Affect, Normal Mood Assessment and Plan - Assessment and Plan (Free Text) Assessment: 62 yo male seen and evaluated for L lower leg ulceration Plan: Patient seen and evaluated with Dr. Hussein ZARATE, WBC 4.9 Wound cleansed with saline and dressing with bactroban, xeroform and DSD. Wound cultures of the left leg; Staph epidermidis Arterial doppler b/l (02/06); No evidence of DVT to b/l lower extremities - Report from 02/02 taken at [facility]: DVT in L distal superficial femoral vein and popliteal vein Podiatry will continue to follow <Antonio Savage - Last Filed: 02/08/18 12:07> Objective - Vital Signs/Intake and Output Vital Signs (last 24 hours): Temp Pulse Resp BP Pulse Ox 98 F 75 20 127/84 99 02/08/18 07:39 02/08/18 07:39 02/08/18 07:39 02/08/18 09:49 02/08/18 07:39 Intake and Output: 02/08/18 02/08/18 06:59 18:59 Output Total 800 Balance -800 - Medications Medications: Current Medications Acetaminophen (Tylenol 325mg Tab) 650 mg PO Q6H PRN PRN Reason: Pain, Mild (1-3) Last Admin: 02/08/18 10:06 Dose: 650 mg Amlodipine Besylate (Norvasc) 2.5 mg PO DAILY [facility] Last Admin: 02/08/18 09:49 Dose: 2.5 mg Escitalopram Oxalate (Lexapro) 20 mg PO DAILY [facility] Last Admin: 02/08/18 09:49 Dose: 20 mg Folic Acid (Folic Acid) 1 mg PO DAILY [facility] Last Admin: 02/08/18 09:48 Dose: 1 mg Furosemide (Lasix) 40 mg PO DAILY [facility] Last Admin: 02/08/18 09:48 Dose: 40 mg Multivitamins (Thera Tab) 1 tab PO 0800 [facility] Last Admin: 02/08/18 08:41 Dose: 1 tab Mupirocin (Bactroban Ointment) 0 gm TOP BID [facility] Last Admin: 02/08/18 09:48 Dose: 1 applic Nicotine (Nicoderm Cq) 1 patch TD DAILY [facility] Last Admin: 02/08/18 09:49 Dose: Not Given Pantoprazole Sodium (Protonix Ec Tab) 40 mg PO 0600 [facility] Last Admin: 02/08/18 05:44 Dose: 40 mg Risperidone (Risperdal Tab) 2 mg PO DAILY [facility]; Protocol Last Admin: 02/08/18 09:49 Dose: 2 mg Rivaroxaban (Xarelto) 15 mg PO BID [facility]; Protocol Last Admin: 02/08/18 09:50 Dose: 15 mg Thiamine HCl (Vitamin B1 Tab) 100 mg PO DAILY [facility] Last Admin: 02/08/18 09:50 Dose: 100 mg Vitamin A (Vitamin A & D Oint Ud Foilpak) 1 ea TOP DAILY [facility] Last Admin: 02/08/18 09:50 Dose: 1 ea - Labs Labs: 02/08/18 06:00 02/08/18 06:00 PT 10.6 SECONDS (9.4-12.5) 02/07/18 06:30 INR 0.92 02/07/18 06:30 APTT 27.0 Seconds (25.1-36.5) 02/07/18 06:30 Attending/Attestation - Attestation I have personally seen and examined this patient.: Yes I have fully participated in the care of the patient.: Yes I have reviewed all pertinent clinical information, including history, physical exam and plan: Yes
--- NOTE | 2018-02-07 15:36 | CON ---
DATE: 02/07/2018 HISTORY OF PRESENT ILLNESS: In short, the patient is a 62-year-old male with reported history of schizophrenia. The patient also has multiple medical problems including blood clot and cellulitis on the left leg. The patient was admitted for cellulitis on the medical site. Psych consult was called for evaluation of medication and the patient has history of mental illness. The patient was seen and examined. The patient presented to be alert and oriented, somewhat pleasant. The patient presented to be disorganized in his thoughts, but seems to be chronic. No acute psychosis. The patient was circumstantial and tangential about his past history and what he went through his life. The patient denied that he is feeling depressed. Denied any thoughts of killing himself or others. The patient reported that he has good support from his friend and his family is in [place]. 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 Vital signs seems to be stable. Temperature 97.6, pulse is 69, blood pressure 124/78, respirations 18, oxygen saturation is 96. Medications reviewed. The patient is on Tylenol, Norvasc, Lovenox, Lexapro 20 mg daily, folic acid, Lasix, Ativan, multivitamins, Bactroban, Nicoderm, Protonix, Risperdal 2 mg daily, vitamin A and Coumadin. Labs are reviewed. Coagulation reviewed. Chemistry reviewed. Urinalysis reviewed. Toxicology reviewed. Alcohol quantity was 43 at the time of admission. Microbiology was positive for Staphylococcus epidermidis and also urinalysis with gram-positive cocci. MENTAL STATUS EXAMINATION: The patient presented to be oddly related, but not acutely psychotic, seems to be having chronic symptoms of schizophrenia. Intense eye contact. Mood was described as I am feeling fine, hanging in there. Affect was constricted, but the patient was able to smile a couple of times. Thought process was circumstantial, but not tangential. Thought content, the patient denied visual, auditory or tactile hallucinations. Denied paranoid ideation. The patient adamantly denied thoughts of harming himself or others. Denied intent or plan. Insight and judgment seems to be limited, but improving. Impulses are well controlled. IMPRESSION: As per history, schizophrenia, schizoaffective disorder, posttraumatic stress disorder. PLAN: Medications will be confirmed by medical students. We will resume medications. The patient is aware what medication he needs to be on, Lexapro as well as Risperdal, which were started by medical team. No acute psychosis. No agitation. We will follow up and advise accordingly. Thank you very much for letting me participate in the care of your patient. Michelle Beasley MD MTDD
--- NOTE | 2018-02-07 16:12 | US ---
PROCEDURE: Lower extremity CHRISTIAN exam HISTORY: Peripheral vascular disease with pain and ulceration. Smoker. PHYSICIAN(S): Ashish Beard MD. FINDINGS: The resting CHRISTIAN's are moderately abnormal: Right, 0.52 and left, 0.65 The brachial systolic pressures are symmetric. The high thigh pressures are equal. The left high thigh PVR waveform is decreased in amplitude compared to the right. This could represent subtle left iliac and/or common femoral artery disease There is a 51 mm gradient across the right thigh. The right calf PVR waveform is mildly blunted. The findings are consistent with right SFA occlusive disease. There is a 48 mm gradient across the left knee. The left ankle and metatarsal waveforms are mildly blunted. This is consistent with left popliteal, trifurcation, and/or tibial disease. The ankle and metatarsal waveforms are symmetric and moderately blunted. IMPRESSION: 1. Moderately abnormal ABIs at rest. 2. Right SFA occlusive disease. 3. Left popliteal, trifurcation, and/or tibial disease. 4. If further workup is indicated, an MRA with gadolinium runoff, CTA runoff, or conventional arteriogram can be obtained
--- NOTE | 2018-02-07 20:49 | CP.PCM.PN ---
<Pb Olvera - Last Filed: 02/07/18 20:39> Subjective - Date & Time of Evaluation Date of Evaluation: 02/07/18 Time of Evaluation: 20:39 - Subjective Subjective: Pb Olvera DO PGY 1 - Internal medicine [employer] - Hospital Progress Note Patient was seen and examined at bedside this morning No acute events overnight NO complaints at this time Reports his leg feels improved Denies chest pain, sob, abd pain, n/v/d/c, 12 system ROS negative at this time Report of DVT/PE was verified from [facility] and relayed to patient Objective - Vital Signs/Intake and Output Vital Signs (last 24 hours): Temp Pulse Resp BP Pulse Ox 99.0 F 82 19 116/71 93 L 02/07/18 16:37 02/07/18 16:37 02/07/18 16:37 02/07/18 16:37 02/07/18 16:37 Intake and Output: 02/07/18 02/08/18 18:59 06:59 Intake Total 1100 Balance 1100 - Medications Medications: Current Medications Acetaminophen (Tylenol 325mg Tab) 650 mg PO Q6H PRN PRN Reason: Pain, Mild (1-3) Last Admin: 02/07/18 08:53 Dose: 650 mg Amlodipine Besylate (Norvasc) 2.5 mg PO DAILY [facility] Last Admin: 02/07/18 10:33 Dose: 2.5 mg Escitalopram Oxalate (Lexapro) 20 mg PO DAILY [facility] Last Admin: 02/07/18 10:34 Dose: 20 mg Folic Acid (Folic Acid) 1 mg PO DAILY [facility] Last Admin: 02/07/18 10:35 Dose: 1 mg Furosemide (Lasix) 40 mg PO DAILY [facility] Last Admin: 02/07/18 10:34 Dose: 40 mg Lorazepam (Ativan) 1 mg IVP Q4 PRN; Protocol PRN Reason: Agitation Last Admin: 02/06/18 22:59 Dose: 1 mg Multivitamins (Thera Tab) 1 tab PO 0800 [facility] Last Admin: 02/07/18 08:53 Dose: 1 tab Mupirocin (Bactroban Ointment) 0 gm TOP BID [facility] Last Admin: 02/06/18 18:14 Dose: 1 applic Nicotine (Nicoderm Cq) 1 patch TD DAILY [facility] Last Admin: 02/07/18 10:33 Dose: Not Given Pantoprazole Sodium (Protonix Ec Tab) 40 mg PO 0600 [facility] Last Admin: 02/07/18 06:53 Dose: 40 mg Risperidone (Risperdal Tab) 2 mg PO DAILY [facility]; Protocol Last Admin: 02/07/18 10:33 Dose: 2 mg Rivaroxaban (Xarelto) 15 mg PO BID [facility]; Protocol Thiamine HCl (Vitamin B1 Tab) 100 mg PO DAILY [facility] Last Admin: 02/07/18 10:33 Dose: 100 mg Vitamin A (Vitamin A & D Oint Ud Foilpak) 1 ea TOP DAILY [facility] Last Admin: 02/06/18 13:56 Dose: Not Given - Labs Labs: 02/07/18 06:30 02/07/18 06:30 PT 10.6 SECONDS (9.4-12.5) 02/07/18 06:30 INR 0.92 02/07/18 06:30 APTT 27.0 Seconds (25.1-36.5) 02/07/18 06:30 Physical Exam - Constitutional Appears: No Acute Distress - Head Exam Head Exam: ATRAUMATIC, NORMAL INSPECTION, NORMOCEPHALIC - Eye Exam Eye Exam: Conjunctival injection (mild b/l), EOMI, Normal appearance, PERRL - ENT Exam ENT Exam: Mucous Membranes Moist - Respiratory Exam Respiratory Exam: CTABL no rales/ronchi/wheezes - Cardiovascular Exam Cardiovascular Exam: REGULAR RHYTHM, +S1, +S2. absent: Systolic Murmur - GI/Abdominal Exam GI & Abdominal Exam: Normal Bowel Sounds, Soft. absent: Distended, Firm, Guarding, Rigid, Tenderness - Extremities Exam Extremities exam: LLE tenderness; LLE warm pulses present; dressing clean. - Back Exam Back exam: absent: CVA tenderness (L), CVA tenderness (R), paraspinal tenderness - Neurological Exam Neurological exam: Alert, CN II-XII Intact, Oriented x3 Additional comments: motor and sensory grossly intact motor 5/5 all extremities - Psychiatric Exam Psychiatric exam: Normal Affect, Normal Mood - Skin Skin Exam: Dry, Warm Assessment and Plan - Assessment and Plan (Free Text) Assessment: 62M, with PMHx of chronic LLE wound with newly diagnosed DVT, active smoker, bipolar disorder/schizophrenia, and prostate cancer (in remission) admitted for provoked DVT likely due to LLE ulcer with cellulitis and recent hospital stay. Repeat LE duplex shows no evidence of DVT however, prior LLE duplex report from [facility] shows evidence of DVT Podiatry following to address wound. Patient will be anticoagulated w/ xarelto as it was confirmed that his insurance covers. PLAN: Provoked DVT, likely due to LLE ulcer with cellulitis and recent hospital stay LE doppler negative at this time Records from 02/02/18 show DVT in distal superficial femoral vein, and left popliteal vein. Start NOAC - Xarelto Will DC Lovenox and Warfarin bridge Chronic LLE ulcer with cellulitis Tib/Fib x-ray (02/02) - soft tissue swelling without acute articular or osseous abnormality. healed fracture of proximal l fibula CRP normal; ESR elevated Off of abx Chronic open would does not require abx as per ID Art duplex shows - abnormal CHRISTIAN at rest; Occlusive disease of R SFA, Left popliteal, trifurcation, and /or tibial disease Tylenol 650 Q6 PRN Pain Podiatry following,will see patient on daily basis Alcohol abuse DC CIWA + Ativan Cont Thiamine, folate, multivitamin pet counselor for cessation Active smoker nicoderm patch pet counselor for cessation Bipolar disorder, schizophrenia, anxiety, depression, continue home risperdone, lexapro Psych consulted HTN continue home lasix and norvasc Prostate cancer dx in 2015, s/p prostatectomy - pt to follow up with his on [facility] outpatient Hx hepatitis C (1980s, work related accident), unknown treatment - No abdominal complaint. No jaundice/abnormal LFT. Continue to trend for now Prophylaxis - Protonix/Anticoagulant therapy Patient was seen, examined and discussed w/ attending physician Dr. Minna Olvera DO PGY1 Internal Medicine [employer] - Pager [phone] <Benny Garber - Last Filed: 02/08/18 17:20> Objective - Vital Signs/Intake and Output Vital Signs (last 24 hours): Temp Pulse Resp BP Pulse Ox 97.8 F 88 20 111/73 97 02/08/18 16:20 02/08/18 16:20 02/08/18 16:20 02/08/18 16:20 02/08/18 16:20 Intake and Output: 02/08/18 02/08/18 06:59 18:59 Output Total 800 Balance -800 - Medications Medications: Current Medications Acetaminophen (Tylenol 325mg Tab) 650 mg PO Q6H PRN PRN Reason: Pain, Mild (1-3) Last Admin: 02/08/18 10:06 Dose: 650 mg Amlodipine Besylate (Norvasc) 2.5 mg PO DAILY [facility] Last Admin: 02/08/18 09:49 Dose: 2.5 mg Clonazepam (Klonopin) 0.25 mg PO [facility]; Protocol Enoxaparin Sodium (Lovenox) 80 mg SC Q12H [facility]; Protocol Escitalopram Oxalate (Lexapro) 20 mg PO DAILY [facility] Last Admin: 02/08/18 09:49 Dose: 20 mg Folic Acid (Folic Acid) 1 mg PO DAILY [facility] Last Admin: 02/08/18 09:48 Dose: 1 mg Furosemide (Lasix) 40 mg PO DAILY [facility] Last Admin: 02/08/18 09:48 Dose: 40 mg Sodium Chloride (Sodium Chloride 0.9%) 1,000 mls @ 100 mls/hr IV .Q10H [facility] Last Admin: 02/08/18 16:54 Dose: 100 mls/hr Multivitamins (Thera Tab) 1 tab PO 0800 [facility] Last Admin: 02/08/18 08:41 Dose: 1 tab Mupirocin (Bactroban Ointment) 0 gm TOP BID [facility] Last Admin: 02/08/18 09:48 Dose: 1 applic Nicotine (Nicoderm Cq) 1 patch TD DAILY [facility] Last Admin: 02/08/18 09:49 Dose: Not Given Pantoprazole Sodium (Protonix Ec Tab) 40 mg PO 0600 [facility] Last Admin: 02/08/18 05:44 Dose: 40 mg Risperidone (Risperdal Tab) 2 mg PO DAILY [facility]; Protocol Last Admin: 02/08/18 09:49 Dose: 2 mg Thiamine HCl (Vitamin B1 Tab) 100 mg PO DAILY [facility] Last Admin: 02/08/18 09:50 Dose: 100 mg Tramadol HCl (Ultram) 50 mg PO Q6H PRN PRN Reason: Pain, severe (8-10) Last Admin: 02/08/18 13:56 Dose: 50 mg Vitamin A (Vitamin A & D Oint Ud Foilpak) 1 ea TOP DAILY [facility] Last Admin: 02/08/18 09:50 Dose: 1 ea - Labs Labs: 02/08/18 06:00 02/08/18 06:00 PT 10.6 SECONDS (9.4-12.5) 02/07/18 06:30 INR 0.92 02/07/18 06:30 APTT 27.0 Seconds (25.1-36.5) 02/07/18 06:30 Attending/Attestation - Attestation I have personally seen and examined this patient.: Yes I have fully participated in the care of the patient.: Yes I have reviewed all pertinent clinical information, including history, physical exam and plan: Yes Notes (Text): 02/08/18 17:14 Attending note; Patient seen and examined With resident. patient is alert and awake. Not in any acute distress. Ambulating without difficulty. Dressing done by podiatry today for the leg wound. Patient is a 62-year-old male with PMH of chronic LLE wound with newly diagnosed DVT, active smoker, bipolar disorder/schizophrenia is admitted with leg pain. patient has been to multiple emergency rooms and hospital for wound care. Does not follow up with any PMD. Noncompliance with follow-up and opiate seeking behavior. Currently with left lower wound. Currently getting local wound care by podiatry. Off antibiotics. Needs to follow up with outpatient wound care center. left lower extremity DVT; started on xarelto. Currently Doppler is negative. Arterial Doppler results pending. History of schizophrenia; psychiatric evaluation appreciated. Continue clonazepa m, risperidone and Lexapro. Patient is strongly advised to follow- PMD of choice upon discharge.
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
[2018-02-08] MEDS: Pantoprazole 40 mg EC Tab PO SCH (05:44)
[2018-02-08 06:27] LABS: BASO # 0.03 K/mm3 (0.0-2.0); BASO % 0.6 % (0.0-3.0); EOS # 0.4 (0.0-0.7); EOS % 7.6 % (1.5-5.0); GRAN # 2.32 (1.4-6.5); GRAN % 49.3 % (50.0-68.0); LYMPH # 1.5 (1.2-3.4); LYMPH % 32.5 % (22.0-35.0); MEAN CELL VOLUME 91.9 fl (80.0-105.0); MEAN CORPUSCULAR HEMOGLOBIN 30.4 pg (25.0-35.0); MEAN CORPUSCULAR HGB CONC 33.1 g/dl (31.0-37.0); MEAN PLATELET VOLUME 9.1 fl (7.0-11.0); MONO # 0.5 (0.1-0.6); RBC 3.95 10^6/uL (3.5-6.1); RED CELL DISTRIBUTION WIDTH 14.2 % (11.5-14.5); WHITE BLOOD COUNT 4.7 10^3/ul (4.5-11.0)
[2018-02-08 07:39] LABS: ALB/GLOB RATIO 1.1 (1.1-1.8); ALBUMIN 3.7 g/dL (3.0-4.8); ALT/SGPT 24 U/L (7-56); AST/SGOT 18 U/L (17-59); BLOOD UREA NITROGEN 22 mg/dL (7-21); CALCIUM 8.5 mg/dL (8.4-10.5); GFR NON-AFRICAN AMERICAN > 60
[2018-02-08] MEDS: Multivitamin Therapeutic Tab PO SCH (08:41)
[2018-02-08] MEDS: Mupirocin 2% Ointment 15 GM TUBE TOP SCH ×2 (09:48→17:46)
[2018-02-08] MEDS: Vitamins A & D Oint UD Foilpak TOP SCH (09:50)
--- NOTE | 2018-02-08 15:06 | CP.PCM.PN ---
<Pb Olvera - Last Filed: 02/08/18 20:41> Subjective - Date & Time of Evaluation Date of Evaluation: 02/08/18 Time of Evaluation: 15:06 - Subjective Subjective: Pb Olvera DO PGY1 - Internal Medicine Telephone Operator Receptionist - Hospital Progress Note Patient was seen and examined his morning at bedside. Results of Arterial duplex were conveyed to patient and plans for MRA of LLE were explained. Patient agreeable to plan. Plans regarding anticoagulation were conveyed to patient as well. Patient voicing no complaints this AM; did report he would want anxiolytic for MRA; Objective - Vital Signs/Intake and Output Vital Signs (last 24 hours): Temp Pulse Resp BP Pulse Ox 98 F 75 20 127/84 99 02/08/18 07:39 02/08/18 07:39 02/08/18 07:39 02/08/18 09:49 02/08/18 07:39 Intake and Output: 02/08/18 02/08/18 06:59 18:59 Output Total 800 Balance -800 - Medications Medications: Current Medications Acetaminophen (Tylenol 325mg Tab) 650 mg PO Q6H PRN PRN Reason: Pain, Mild (1-3) Last Admin: 02/08/18 10:06 Dose: 650 mg Amlodipine Besylate (Norvasc) 2.5 mg PO DAILY [facility] Last Admin: 02/08/18 09:49 Dose: 2.5 mg Clonazepam (Klonopin) 0.25 mg PO [facility]; Protocol Escitalopram Oxalate (Lexapro) 20 mg PO DAILY [facility] Last Admin: 02/08/18 09:49 Dose: 20 mg Folic Acid (Folic Acid) 1 mg PO DAILY [facility] Last Admin: 02/08/18 09:48 Dose: 1 mg Furosemide (Lasix) 40 mg PO DAILY [facility] Last Admin: 02/08/18 09:48 Dose: 40 mg Multivitamins (Thera Tab) 1 tab PO 0800 [facility] Last Admin: 02/08/18 08:41 Dose: 1 tab Mupirocin (Bactroban Ointment) 0 gm TOP BID [facility] Last Admin: 02/08/18 09:48 Dose: 1 applic Nicotine (Nicoderm Cq) 1 patch TD DAILY [facility] Last Admin: 02/08/18 09:49 Dose: Not Given Pantoprazole Sodium (Protonix Ec Tab) 40 mg PO 0600 [facility] Last Admin: 02/08/18 05:44 Dose: 40 mg Risperidone (Risperdal Tab) 2 mg PO DAILY [facility]; Protocol Last Admin: 02/08/18 09:49 Dose: 2 mg Rivaroxaban (Xarelto) 15 mg PO BID [facility]; Protocol Last Admin: 02/08/18 09:50 Dose: 15 mg Thiamine HCl (Vitamin B1 Tab) 100 mg PO DAILY [facility] Last Admin: 02/08/18 09:50 Dose: 100 mg Tramadol HCl (Ultram) 50 mg PO Q6H PRN PRN Reason: Pain, severe (8-10) Last Admin: 02/08/18 13:56 Dose: 50 mg Vitamin A (Vitamin A & D Oint Ud Foilpak) 1 ea TOP DAILY [facility] Last Admin: 02/08/18 09:50 Dose: 1 ea - Labs Labs: 02/08/18 06:00 02/08/18 06:00 PT 10.6 SECONDS (9.4-12.5) 02/07/18 06:30 INR 0.92 02/07/18 06:30 APTT 27.0 Seconds (25.1-36.5) 02/07/18 06:30 Physical Exam - Constitutional Appears: No Acute Distress - Head Exam Head Exam: ATRAUMATIC, NORMAL INSPECTION, NORMOCEPHALIC - Eye Exam Eye Exam: Conjunctival injection (mild b/l), EOMI, Normal appearance, PERRL - ENT Exam ENT Exam: Mucous Membranes Moist - Respiratory Exam Respiratory Exam: CTABL no rales/ronchi/wheezes - Cardiovascular Exam Cardiovascular Exam: REGULAR RHYTHM, +S1, +S2. absent: Systolic Murmur - GI/Abdominal Exam GI & Abdominal Exam: Normal Bowel Sounds, Soft. absent: Distended, Firm, Guarding, Rigid, Tenderness - Extremities Exam Extremities exam: LLE tenderness; LLE warm pulses present; dressing clean. Delayed cap refil BL LE; Pulses are dopplerable bilaterally. - Back Exam Back exam: absent: CVA tenderness (L), CVA tenderness (R), paraspinal tenderness - Neurological Exam Neurological exam: Alert, CN II-XII Intact, Oriented x3 Additional comments: motor and sensory grossly intact motor 5/5 all extremities - Psychiatric Exam Psychiatric exam: Normal Affect, Normal Mood - Skin Skin Exam: Dry, Warm Assessment and Plan - Assessment and Plan (Free Text) Assessment: 62M, with PMHx of chronic LLE wound with newly diagnosed DVT, active smoker, bipolar disorder/schizophrenia, and prostate cancer (in remission) admitted for provoked DVT likely due to LLE ulcer with cellulitis and recent hospital stay. Repeat LE duplex shows no evidence of DVT however, prior LLE duplex report from [facility] shows evidence of DVT Podiatry following to address wound. Patient will be anticoagulated w/ xarelto as it was confirmed that his insurance covers. His Art duplex results showed disease of BL LE; patient will undergo MRA of BL LE to evaluate vasculature. Xarelto switched to therapeutic lovenox for time being as precautionary measure if patient is to go for vascular procedure. PLAN: Provoked DVT, likely due to LLE ulcer with cellulitis and recent hospital stay LE doppler negative at this time Records from 02/02/18 show DVT in distal superficial femoral vein, and left popliteal vein. Holding xarelto Starting Lovenox 80 Q12 in anticipation of vascular procedure Chronic LLE ulcer with cellulitis 2/2 Peripheral Vascular Disease Non toxic; no s/s infection; afebrile w/o leukocytosis Tib/Fib x-ray (02/02) - soft tissue swelling without acute articular or osseous abnormality. healed fracture of proximal l fibula CRP normal; ESR elevated Off of abx; Chronic open would does not require abx as per ID Art duplex shows - abnormal CHRISTIAN at rest; Occlusive disease of R SFA, Left popliteal, trifurcation, and /or tibial disease Patient will undergo MRA of BL LE to evaluate vasculature PRN Anxiolytic prior to MRA ; Will hydrate patient w/ IVF prior to procedure to reduce chances of contrast induced nephropathy Tylenol 650 Q6 PRN Pain Podiatry following,will see patient on daily basis Alcohol abuse Cont Thiamine, folate, multivitamin personnel counselor for cessation Active smoker nicoderm patch personnel counselor for cessation Bipolar disorder, schizophrenia, anxiety, depression, continue home risperdone, lexapro Started klonopin 0.25mg [facility] Psych consulted HTN continue home lasix and norvasc Prostate cancer dx in 2016, s/p prostatectomy - pt to follow up with his oncologist outpatient Hx hepatitis C (1980s, work related accident), unknown treatment - No abdominal complaint. No jaundice/abnormal LFT. Continue to trend for now Prophylaxis - Protonix/Anticoagulant therapy DISPO: Inpatient admission for continued work up/ management of Lower extremity peripheral arterial disease, chronic LLE ulcer, Provoked DVT, and comorbidities. Patient is to follow up w/ previous PMD in [place] or w/ [facility]. Patient was seen, examined and discussed w/ attending physician Dr. Jcarlos Olvera DO PGY1 Internal Medicine Telephone Operator Receptionist - Pager [phone] <Benny Garber - Last Filed: 02/09/18 15:16> Objective - Vital Signs/Intake and Output Vital Signs (last 24 hours): Temp Pulse Resp BP Pulse Ox 98.0 F 62 20 129/74 94 L 02/09/18 06:00 02/09/18 06:00 02/09/18 06:00 02/09/18 09:21 02/09/18 06:00 Intake and Output: 02/09/18 02/09/18 06:59 18:59 Intake Total 1320 Output Total 450 Balance 870 - Medications Medications: Current Medications Acetaminophen (Tylenol 325mg Tab) 650 mg PO Q6H PRN PRN Reason: Pain, Mild (1-3) Last Admin: 02/08/18 10:06 Dose: 650 mg Amlodipine Besylate (Norvasc) 2.5 mg PO DAILY [facility] Last Admin: 02/09/18 09:21 Dose: 2.5 mg Clonazepam (Klonopin) 0.25 mg PO [facility]; Protocol Last Admin: 02/09/18 09:19 Dose: 0.25 mg Enoxaparin Sodium (Lovenox) 80 mg SC Q12H [facility]; Protocol Last Admin: 02/09/18 05:13 Dose: 80 mg Escitalopram Oxalate (Lexapro) 20 mg PO DAILY [facility] Last Admin: 02/09/18 09:26 Dose: 20 mg Folic Acid (Folic Acid) 1 mg PO DAILY [facility] Last Admin: 02/09/18 09:19 Dose: 1 mg Furosemide (Lasix) 40 mg PO DAILY [facility] Last Admin: 02/09/18 09:20 Dose: 40 mg Sodium Chloride (Sodium Chloride 0.9%) 1,000 mls @ 100 mls/hr IV .Q10H [facility] Last Admin: 02/09/18 03:30 Dose: 100 mls/hr Multivitamins (Thera Tab) 1 tab PO 0800 [facility] Last Admin: 02/09/18 09:26 Dose: 1 tab Mupirocin (Bactroban Ointment) 0 gm TOP BID [facility] Last Admin: 02/08/18 17:46 Dose: Not Given Nicotine (Nicoderm Cq) 1 patch TD DAILY [facility] Last Admin: 02/09/18 11:34 Dose: Not Given Pantoprazole Sodium (Protonix Ec Tab) 40 mg PO 0600 [facility] Last Admin: 02/09/18 05:13 Dose: 40 mg Risperidone (Risperdal Tab) 2 mg PO DAILY [facility]; Protocol Last Admin: 02/09/18 09:21 Dose: 2 mg Thiamine HCl (Vitamin B1 Tab) 100 mg PO DAILY [facility] Last Admin: 02/09/18 09:22 Dose: 100 mg Tramadol HCl (Ultram) 50 mg PO Q6H PRN PRN Reason: Pain, severe (8-10) Last Admin: 02/09/18 09:27 Dose: 50 mg Vitamin A (Vitamin A & D Oint Ud Foilpak) 1 ea TOP DAILY [facility] Last Admin: 02/08/18 09:50 Dose: 1 ea - Labs Labs: 02/09/18 06:00 02/09/18 06:00 PT 11.7 SECONDS (9.4-12.5) 02/09/18 06:00 INR 1.02 02/09/18 06:00 APTT 33.8 Seconds (25.1-36.5) 02/09/18 06:00 Attending/Attestation - Attestation I have personally seen and examined this patient.: Yes I have fully participated in the care of the patient.: Yes I have reviewed all pertinent clinical information, including history, physical exam and plan: Yes Notes (Text): 02/09/18 15:14 Attending note; Patient seen and examined With resident. patient is alert and awake. Not in any acute distress. Ambulating without difficulty. Patient is a 62-year-old male with PMH of chronic LLE wound with newly diagnosed DVT, active smoker, bipolar disorder/schizophrenia is admitted with leg pain. Currently with left lower wound. Currently getting local wound care by podiatry. Off antibiotics. Needs to follow up with outpatient wound care center. left lower extremity DVT; started on xarelto. Currently Doppler is negative. arterial Doppler showed significant bilateral vascular disease. Case reviewed with Dr. Ashish Beard in detail. We will hold xarelto. started on subcutaneous cutaneous Lovenox. Plan for MRA of lower extremity tomorrow. History of schizophrenia; psychiatric evaluation appreciated. Continue clonazepam, risperidone and Lexapro. Patient is strongly advised to follow- PMD of choice upon discharge.
--- NOTE | 2018-02-08 15:21 | CP.PCM.PN ---
<Cristin Yadav - Last Filed: 02/08/18 15:39> Subjective - Date & Time of Evaluation Date of Evaluation: 02/08/18 Time of Evaluation: 15:18 - Subjective Subjective: Podiatry progress note for Dr. Savage: 62 yo male seen and evaluated for L lower leg ulceration. Patient is resting comfortably and in NAD. He denies any acute events overnight. Patient requesting pain management as an outpatient. Denies N/V/F/SOB. Objective - Vital Signs/Intake and Output Vital Signs (last 24 hours): Temp Pulse Resp BP Pulse Ox 98 F 75 20 127/84 99 02/08/18 07:39 02/08/18 07:39 02/08/18 07:39 02/08/18 09:49 02/08/18 07:39 Intake and Output: 02/08/18 02/08/18 06:59 18:59 Output Total 800 Balance -800 - Medications Medications: Current Medications Acetaminophen (Tylenol 325mg Tab) 650 mg PO Q6H PRN PRN Reason: Pain, Mild (1-3) Last Admin: 02/08/18 10:06 Dose: 650 mg Amlodipine Besylate (Norvasc) 2.5 mg PO DAILY [facility] Last Admin: 02/08/18 09:49 Dose: 2.5 mg Clonazepam (Klonopin) 0.25 mg PO [facility]; Protocol Escitalopram Oxalate (Lexapro) 20 mg PO DAILY [facility] Last Admin: 02/08/18 09:49 Dose: 20 mg Folic Acid (Folic Acid) 1 mg PO DAILY [facility] Last Admin: 02/08/18 09:48 Dose: 1 mg Furosemide (Lasix) 40 mg PO DAILY [facility] Last Admin: 02/08/18 09:48 Dose: 40 mg Multivitamins (Thera Tab) 1 tab PO 0800 [facility] Last Admin: 02/08/18 08:41 Dose: 1 tab Mupirocin (Bactroban Ointment) 0 gm TOP BID [facility] Last Admin: 02/08/18 09:48 Dose: 1 applic Nicotine (Nicoderm Cq) 1 patch TD DAILY [facility] Last Admin: 02/08/18 09:49 Dose: Not Given Pantoprazole Sodium (Protonix Ec Tab) 40 mg PO 0600 [facility] Last Admin: 02/08/18 05:44 Dose: 40 mg Risperidone (Risperdal Tab) 2 mg PO DAILY [facility]; Protocol Last Admin: 02/08/18 09:49 Dose: 2 mg Rivaroxaban (Xarelto) 15 mg PO BID [facility]; Protocol Last Admin: 02/08/18 09:50 Dose: 15 mg Thiamine HCl (Vitamin B1 Tab) 100 mg PO DAILY [facility] Last Admin: 02/08/18 09:50 Dose: 100 mg Tramadol HCl (Ultram) 50 mg PO Q6H PRN PRN Reason: Pain, severe (8-10) Last Admin: 02/08/18 13:56 Dose: 50 mg Vitamin A (Vitamin A & D Oint Ud Foilpak) 1 ea TOP DAILY [facility] Last Admin: 02/08/18 09:50 Dose: 1 ea - Labs Labs: 02/08/18 06:00 02/08/18 06:00 PT 10.6 SECONDS (9.4-12.5) 02/07/18 06:30 INR 0.92 02/07/18 06:30 APTT 27.0 Seconds (25.1-36.5) 02/07/18 06:30 - Constitutional Appears: No Acute Distress - Extremities Exam Additional comments: LLE focused exam: Vasc: DP/PT pulses palpable bilaterally, +2 pitting edema noted both lower extremities L>R. Ortho: Pain upon palpation bari-wound, MMT 5/5, tenderness upon calf compression Neuro: Decreased protective sensation, gross sensation intact Derm: Full thickeness ulceration noted to the anterior aspect of the L leg measu ring approximately 4.5 x 3.5 x 0.3, base is fibrogranular, minimal serous drainage noted, no purulence, no malodor, no tunneling, no tracking, no probe to bone. No cellulitis noted - Neurological Exam Neurological Exam: Alert, Awake - Psychiatric Exam Psychiatric exam: Normal Affect Assessment and Plan - Assessment and Plan (Free Text) Assessment: 62 yo male seen and evaluated for L lower leg ulceration Plan: Patient seen and evaluated with Dr. Hussein ZARATE, WBC 4.7 Wound cleansed with saline and dressed with xeroform and DSD. Wound cultures of the left leg; Staph epidermidis Arterial doppler b/l (02/06); No evidence of DVT to b/l lower extremities - Report from 02/02 taken at [facility]: DVT in L distal superficial femoral vein and popliteal vein, patient on xarelto per medicine team Podiatry will continue to follow, pending D/C patient to follow in wound care center <Hugo Savageyoshi - Last Filed: 02/09/18 10:58> Objective - Vital Signs/Intake and Output Vital Signs (last 24 hours): Temp Pulse Resp BP Pulse Ox 97.8 F 88 20 129/74 97 02/08/18 16:20 02/08/18 16:20 02/08/18 16:20 02/09/18 09:21 02/08/18 16:20 Intake and Output: 02/09/18 02/09/18 06:59 18:59 Intake Total 1320 Output Total 450 Balance 870 - Medications Medications: Current Medications Acetaminophen (Tylenol 325mg Tab) 650 mg PO Q6H PRN PRN Reason: Pain, Mild (1-3) Last Admin: 02/08/18 10:06 Dose: 650 mg Amlodipine Besylate (Norvasc) 2.5 mg PO DAILY [facility] Last Admin: 02/09/18 09:21 Dose: 2.5 mg Clonazepam (Klonopin) 0.25 mg PO [facility]; Protocol Last Admin: 02/09/18 09:19 Dose: 0.25 mg Enoxaparin Sodium (Lovenox) 80 mg SC Q12H [facility]; Protocol Last Admin: 02/09/18 05:13 Dose: 80 mg Escitalopram Oxalate (Lexapro) 20 mg PO DAILY [facility] Last Admin: 02/09/18 09:26 Dose: 20 mg Folic Acid (Folic Acid) 1 mg PO DAILY [facility] Last Admin: 02/09/18 09:19 Dose: 1 mg Furosemide (Lasix) 40 mg PO DAILY [facility] Last Admin: 02/09/18 09:20 Dose: 40 mg Sodium Chloride (Sodium Chloride 0.9%) 1,000 mls @ 100 mls/hr IV .Q10H [facility] Last Admin: 02/09/18 03:30 Dose: 100 mls/hr Multivitamins (Thera Tab) 1 tab PO 0800 [facility] Last Admin: 02/09/18 09:26 Dose: 1 tab Mupirocin (Bactroban Ointment) 0 gm TOP BID [facility] Last Admin: 02/08/18 17:46 Dose: Not Given Nicotine (Nicoderm Cq) 1 patch TD DAILY [facility] Last Admin: 02/08/18 09:49 Dose: Not Given Pantoprazole Sodium (Protonix Ec Tab) 40 mg PO 0600 [facility] Last Admin: 02/09/18 05:13 Dose: 40 mg Risperidone (Risperdal Tab) 2 mg PO DAILY [facility]; Protocol Last Admin: 02/09/18 09:21 Dose: 2 mg Thiamine HCl (Vitamin B1 Tab) 100 mg PO DAILY [facility] Last Admin: 02/09/18 09:22 Dose: 100 mg Tramadol HCl (Ultram) 50 mg PO Q6H PRN PRN Reason: Pain, severe (8-10) Last Admin: 02/09/18 09:27 Dose: 50 mg Vitamin A (Vitamin A & D Oint Ud Foilpak) 1 ea TOP DAILY [facility] Last Admin: 02/08/18 09:50 Dose: 1 ea - Labs Labs: 02/09/18 06:00 02/09/18 06:00 PT 11.7 SECONDS (9.4-12.5) 02/09/18 06:00 INR 1.02 02/09/18 06:00 APTT 33.8 Seconds (25.1-36.5) 02/09/18 06:00 Attending/Attestation - Attestation I have personally seen and examined this patient.: Yes I have fully participated in the care of the patient.: Yes I have reviewed all pertinent clinical information, including history, physical exam and plan: Yes
[2018-02-08] MEDS: Sodium Chloride 0.9% 1,000 ML IV SCH (16:54)
[2018-02-08] MEDS: Enoxaparin 80 mg Syringe SC SCH (17:46)
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
[2018-02-09] MEDS: Sodium Chloride 0.9% 1,000 ML IV SCH ×2 (03:30→22:30)
[2018-02-09] MEDS: Enoxaparin 80 mg Syringe SC SCH ×2 (05:13→18:22)
[2018-02-09] MEDS: Pantoprazole 40 mg EC Tab PO SCH (05:13)
[2018-02-09 06:25] LABS: BASO # 0.06 K/mm3 (0.0-2.0); BASO % 1.2 % (0.0-3.0); EOS # 0.4 (0.0-0.7); EOS % 7.7 % (1.5-5.0); GRAN # 2.51 (1.4-6.5); GRAN % 48.1 % (50.0-68.0); HEMOGLOBIN 11.7 g/dL (14.0-18.0); LYMPH # 1.7 (1.2-3.4); LYMPH % 33.2 % (22.0-35.0); MEAN CELL VOLUME 92.4 fl (80.0-105.0); MEAN CORPUSCULAR HEMOGLOBIN 30.5 pg (25.0-35.0); MEAN PLATELET VOLUME 9.1 fl (7.0-11.0); MONO # 0.5 (0.1-0.6); MONO % 9.8 % (1.0-6.0); RBC 3.84 10^6/uL (3.5-6.1); RED CELL DISTRIBUTION WIDTH 14.2 % (11.5-14.5); WHITE BLOOD COUNT 5.2 10^3/ul (4.5-11.0)
[2018-02-09 06:30] LABS: INR 1.02; PARTIAL THROMBOPLASTIN TIME 33.8 Seconds (25.1-36.5); PROTHROMBIN TIME 11.7 SECONDS (9.4-12.5)
--- NOTE | 2018-02-09 07:00 | CON ---
DATE: 02/08/2018 HISTORY OF PRESENT ILLNESS: The patient is a 62-year-old white male with a history of schizophrenia that appears to be basically associated with a touch of sal during this medical hospitalization. The patient is being treated for cellulitis on the medical side and psychiatrist called for evaluation of medications due to the patient's history of mental illness. Dr. Beasley met with the patient at bedside yesterday and I agree with her. He is alert and well-oriented and generally pleasant, though he is at times over-inclusive and tangential with his thought process. He is not overtly disorganized or psychotic though presents with rapid speech, elevated mood, and mild impulse control issues. Presently, the patient denies having any major issues, he says "trying to hang in there." Sleeping is "okay.'' He denies feeling depressed. He is hopeful about life. He does have history of depression. Denies any perceptual disturbance, paranoia, or hallucinations. He feels so far so good. Currently, he is tolerating medications that Dr. Beasley prescribed, though does report feelings of anxiety. Of note, there have been no major behavioral issues on the unit. Vital signs, labs are reviewed. RELEVANT PSYCHIATRIC MEDICATIONS: Include Lexapro 20 mg daily, Risperdal 2 mg daily. IMPRESSION: Schizoaffective disorder, rule out bipolar, mixed; as well as history of post-traumatic stress disorder. PLAN: We will continue with current medications of Risperdal and Lexapro and we will also initiate Klonopin 0.25 mg h.s. The patient reports anxiety, the patient also has mood control as well as impulse control. Psychiatry will continue to follow up with the patient tomorrow morning. Nu Ferreira MD
[2018-02-09 07:09] LABS: ALB/GLOB RATIO 1.1 (1.1-1.8); ALBUMIN 3.5 g/dL (3.0-4.8); ALT/SGPT 27 U/L (7-56); AST/SGOT 28 U/L (17-59); BLOOD UREA NITROGEN 21 mg/dL (7-21); CALCIUM 8.4 mg/dL (8.4-10.5); GFR NON-AFRICAN AMERICAN > 60
[2018-02-09] MEDS: Multivitamin Therapeutic Tab PO SCH (09:26)
[2018-02-09] MEDS: Mupirocin 2% Ointment 15 GM TUBE TOP SCH ×2 (10:00→18:02)
[2018-02-09] MEDS ORDERED: Gadodiamide 287 MG/ML VIAL (20ML) IV ONE (13:07)
--- NOTE | 2018-02-09 14:13 | CP.PCM.PN ---
<Cristin Yadav - Last Filed: 02/09/18 14:09> Subjective - Date & Time of Evaluation Date of Evaluation: 02/09/18 Time of Evaluation: 14:09 - Subjective Subjective: Podiatry progress note for Dr. Savage: 62 yo male seen and evaluated for L lower leg ulceration. Patient is resting comfortably bedside and denies any acute events overnight. Patient currently reports pain to his L lower extremity. Patient is cooperative this morning and aware of DVT diagnosis. Denies any new pedal complaints at this time. Denies N/V/F/SOB. Objective - Vital Signs/Intake and Output Vital Signs (last 24 hours): Temp Pulse Resp BP Pulse Ox 98.0 F 62 20 129/74 94 L 02/09/18 06:00 02/09/18 06:00 02/09/18 06:00 02/09/18 09:21 02/09/18 06:00 Intake and Output: 02/09/18 02/09/18 06:59 18:59 Intake Total 1320 Output Total 450 Balance 870 - Medications Medications: Current Medications Acetaminophen (Tylenol 325mg Tab) 650 mg PO Q6H PRN PRN Reason: Pain, Mild (1-3) Last Admin: 02/08/18 10:06 Dose: 650 mg Amlodipine Besylate (Norvasc) 2.5 mg PO DAILY [facility] Last Admin: 02/09/18 09:21 Dose: 2.5 mg Clonazepam (Klonopin) 0.25 mg PO [facility]; Protocol Last Admin: 02/09/18 09:19 Dose: 0.25 mg Enoxaparin Sodium (Lovenox) 80 mg SC Q12H [facility]; Protocol Last Admin: 02/09/18 05:13 Dose: 80 mg Escitalopram Oxalate (Lexapro) 20 mg PO DAILY [facility] Last Admin: 02/09/18 09:26 Dose: 20 mg Folic Acid (Folic Acid) 1 mg PO DAILY [facility] Last Admin: 02/09/18 09:19 Dose: 1 mg Furosemide (Lasix) 40 mg PO DAILY [facility] Last Admin: 02/09/18 09:20 Dose: 40 mg Sodium Chloride (Sodium Chloride 0.9%) 1,000 mls @ 100 mls/hr IV .Q10H [facility] Last Admin: 02/09/18 03:30 Dose: 100 mls/hr Multivitamins (Thera Tab) 1 tab PO 0800 [facility] Last Admin: 02/09/18 09:26 Dose: 1 tab Mupirocin (Bactroban Ointment) 0 gm TOP BID [facility] Last Admin: 02/08/18 17:46 Dose: Not Given Nicotine (Nicoderm Cq) 1 patch TD DAILY [facility] Last Admin: 02/09/18 11:34 Dose: Not Given Pantoprazole Sodium (Protonix Ec Tab) 40 mg PO 0600 [facility] Last Admin: 02/09/18 05:13 Dose: 40 mg Risperidone (Risperdal Tab) 2 mg PO DAILY [facility]; Protocol Last Admin: 02/09/18 09:21 Dose: 2 mg Thiamine HCl (Vitamin B1 Tab) 100 mg PO DAILY [facility] Last Admin: 02/09/18 09:22 Dose: 100 mg Tramadol HCl (Ultram) 50 mg PO Q6H PRN PRN Reason: Pain, severe (8-10) Last Admin: 02/09/18 09:27 Dose: 50 mg Vitamin A (Vitamin A & D Oint Ud Foilpak) 1 ea TOP DAILY [facility] Last Admin: 02/08/18 09:50 Dose: 1 ea - Labs Labs: 02/09/18 06:00 02/09/18 06:00 PT 11.7 SECONDS (9.4-12.5) 02/09/18 06:00 INR 1.02 02/09/18 06:00 APTT 33.8 Seconds (25.1-36.5) 02/09/18 06:00 - Constitutional Appears: Well, Non-toxic, No Acute Distress - Head Exam Head Exam: ATRAUMATIC, NORMOCEPHALIC - Extremities Exam Additional comments: LLE focused exam: Vasc: DP/PT pulses palpable bilaterally, +2 pitting edema noted both lower extremities L>R. Ortho: Pain upon palpation bari-wound, MMT 5/5, tenderness upon calf compression Neuro: Decreased protective sensation, gross sensation intact Derm: Full thickeness ulceration noted to the anterior aspect of the L leg measuring approximately 4.5 x 3.5 x 0.3, base is fibrogranular, minimal serous drainage noted, no purulence, no malodor, no tunneling, no tracking, no probe to bone. No cellulitis noted Assessment and Plan - Assessment and Plan (Free Text) Assessment: 62 yo male seen and evaluated for L lower leg ulceration Plan: Patient seen and evaluated with Dr. Savage Afebrile, absent leukocytosis Local wound care: L ulceration dressed with xeroform and DSD. Wound cultures of the left leg; Staph epidermidis Arterial doppler b/l (02/06); No evidence of DVT to b/l lower extremities - Report from 02/02 taken at [facility]: DVT in L distal superficial femoral vein and popliteal vein, patient on xarelto per medicine team Podiatry will continue to follow, pending D/C patient to follow in wound care center <Antonio Savage - Last Filed: 02/10/18 08:24> Objective - Vital Signs/Intake and Output Vital Signs (last 24 hours): Temp Pulse Resp BP Pulse Ox 98.1 F 81 20 110/66 96 02/09/18 16:32 02/09/18 16:32 02/09/18 16:32 02/09/18 16:32 02/09/18 16:32 Intake and Output: 02/10/18 02/10/18 06:59 18:59 Intake Total 1900 Output Total 700 Balance 1200 - Medications Medications: Current Medications Acetaminophen (Tylenol 325mg Tab) 650 mg PO Q6H PRN PRN Reason: Pain, Mild (1-3) Last Admin: 02/08/18 10:06 Dose: 650 mg Amlodipine Besylate (Norvasc) 2.5 mg PO DAILY [facility] Last Admin: 02/09/18 09:21 Dose: 2.5 mg Clonazepam (Klonopin) 0.25 mg PO [facility]; Protocol Last Admin: 02/09/18 21:39 Dose: 0.25 mg Enoxaparin Sodium (Lovenox) 80 mg SC Q12H [facility]; Protocol Last Admin: 02/10/18 05:31 Dose: 80 mg Escitalopram Oxalate (Lexapro) 20 mg PO DAILY [facility] Last Admin: 02/09/18 09:26 Dose: 20 mg Folic Acid (Folic Acid) 1 mg PO DAILY [facility] Last Admin: 02/09/18 09:19 Dose: 1 mg Furosemide (Lasix) 40 mg PO DAILY [facility] Last Admin: 02/09/18 09:20 Dose: 40 mg Sodium Chloride (Sodium Chloride 0.9%) 1,000 mls @ 100 mls/hr IV .Q10H [facility] Last Admin: 02/09/18 22:30 Dose: 100 mls/hr Multivitamins (Thera Tab) 1 tab PO 0800 [facility] Last Admin: 02/09/18 09:26 Dose: 1 tab Mupirocin (Bactroban Ointment) 0 gm TOP BID [facility] Last Admin: 02/09/18 18:02 Dose: Not Given Nicotine (Nicoderm Cq) 1 patch TD DAILY [facility] Last Admin: 02/09/18 11:34 Dose: Not Given Pantoprazole Sodium (Protonix Ec Tab) 40 mg PO 0600 [facility] Last Admin: 02/10/18 05:31 Dose: 40 mg Risperidone (Risperdal Tab) 2 mg PO DAILY [facility]; Protocol Last Admin: 02/09/18 09:21 Dose: 2 mg Thiamine HCl (Vitamin B1 Tab) 100 mg PO DAILY [facility] Last Admin: 02/09/18 09:22 Dose: 100 mg Tramadol HCl (Ultram) 50 mg PO Q6H PRN PRN Reason: Pain, severe (8-10) Last Admin: 02/09/18 09:27 Dose: 50 mg Vitamin A (Vitamin A & D Oint Ud Foilpak) 1 ea TOP DAILY [facility] Last Admin: 02/08/18 09:50 Dose: 1 ea - Labs Labs: 02/10/18 06:00 02/10/18 06:00 PT 10.9 SECONDS (9.4-12.5) 02/10/18 06:00 INR 0.95 02/10/18 06:00 APTT 33.0 Seconds (25.1-36.5) 02/10/18 06:00 Attending/Attestation - Attestation I have personally seen and examined this patient.: Yes I have fully participated in the care of the patient.: Yes I have reviewed all pertinent clinical information, including history, physical exam and plan: Yes
--- NOTE | 2018-02-09 15:14 | MRI ---
Date of service: 02/09/2018 PROCEDURE: MR angiography of the lower extremities with and without contrast HISTORY: Abnl CHRISTIAN COMPARISON: TECHNIQUE: MR angiography of the abdominal aorta and lower extremities was performed with and without contrast. 20 cc of Omniscan were injected FINDINGS: The aorta is smooth in contour and normal in caliber. The celiac SMA and renal arteries are patent. The iliac arteries and common femoral arteries are widely patent. On the right side there is a short segment occlusion of the proximal right SFA as well as more distal occlusion. There is reconstitution distally. Mild atherosclerotic changes are seen in the left SFA with no critical stenosis. There is 2 vessel runoff to the ankle via the peroneal and posterior tibial bilaterally. There is proximal occlusion of the anterior tibial IMPRESSION: Short-segment occlusions in the right SF Bilateral anterior tibial occlusion
--- NOTE | 2018-02-09 22:54 | CP.PCM.PN ---
<Pb Olvera - Last Filed: 02/09/18 22:48> Subjective - Date & Time of Evaluation Date of Evaluation: 02/09/18 Time of Evaluation: 22:49 - Subjective Subjective: Pb Olvera DO PGY 1 - Internal Medicine [employer] - Hospital Progress Note Patient was seen and examined this AM at bedside; Patient is to go for MRi this AM; Patient had reached MRI however became anxious prior to procedure; He was given xanax and returned to MRI to complete MRA of LLE. Objective - Vital Signs/Intake and Output Vital Signs (last 24 hours): Temp Pulse Resp BP Pulse Ox 98.1 F 81 20 110/66 96 02/09/18 16:32 02/09/18 16:32 02/09/18 16:32 02/09/18 16:32 02/09/18 16:32 Intake and Output: 02/09/18 02/10/18 18:59 06:59 Intake Total 1200 Output Total 700 Balance 500 - Medications Medications: Current Medications Acetaminophen (Tylenol 325mg Tab) 650 mg PO Q6H PRN PRN Reason: Pain, Mild (1-3) Last Admin: 02/08/18 10:06 Dose: 650 mg Amlodipine Besylate (Norvasc) 2.5 mg PO DAILY [facility] Last Admin: 02/09/18 09:21 Dose: 2.5 mg Clonazepam (Klonopin) 0.25 mg PO [facility]; Protocol Last Admin: 02/09/18 21:39 Dose: 0.25 mg Enoxaparin Sodium (Lovenox) 80 mg SC Q12H [facility]; Protocol Last Admin: 02/09/18 18:22 Dose: 80 mg Escitalopram Oxalate (Lexapro) 20 mg PO DAILY [facility] Last Admin: 02/09/18 09:26 Dose: 20 mg Folic Acid (Folic Acid) 1 mg PO DAILY [facility] Last Admin: 02/09/18 09:19 Dose: 1 mg Furosemide (Lasix) 40 mg PO DAILY [facility] Last Admin: 02/09/18 09:20 Dose: 40 mg Sodium Chloride (Sodium Chloride 0.9%) 1,000 mls @ 100 mls/hr IV .Q10H [facility] Last Admin: 02/09/18 03:30 Dose: 100 mls/hr Multivitamins (Thera Tab) 1 tab PO 0800 [facility] Last Admin: 02/09/18 09:26 Dose: 1 tab Mupirocin (Bactroban Ointment) 0 gm TOP BID [facility] Last Admin: 02/09/18 18:02 Dose: Not Given Nicotine (Nicoderm Cq) 1 patch TD DAILY [facility] Last Admin: 02/09/18 11:34 Dose: Not Given Pantoprazole Sodium (Protonix Ec Tab) 40 mg PO 0600 [facility] Last Admin: 02/09/18 05:13 Dose: 40 mg Risperidone (Risperdal Tab) 2 mg PO DAILY [facility]; Protocol Last Admin: 02/09/18 09:21 Dose: 2 mg Thiamine HCl (Vitamin B1 Tab) 100 mg PO DAILY [facility] Last Admin: 02/09/18 09:22 Dose: 100 mg Tramadol HCl (Ultram) 50 mg PO Q6H PRN PRN Reason: Pain, severe (8-10) Last Admin: 02/09/18 09:27 Dose: 50 mg Vitamin A (Vitamin A & D Oint Ud Foilpak) 1 ea TOP DAILY [facility] Last Admin: 02/08/18 09:50 Dose: 1 ea - Labs Labs: 02/09/18 06:00 02/09/18 06:00 PT 11.7 SECONDS (9.4-12.5) 02/09/18 06:00 INR 1.02 02/09/18 06:00 APTT 33.8 Seconds (25.1-36.5) 02/09/18 06:00 Physical Exam - Constitutional Appears: No Acute Distress - Head Exam Head Exam: ATRAUMATIC, NORMAL INSPECTION, NORMOCEPHALIC - Eye Exam Eye Exam: Conjunctival injection (mild b/l), EOMI, Normal appearance, PERRL - ENT Exam ENT Exam: Mucous Membranes Moist - Respiratory Exam Respiratory Exam: CTABL no rales/ronchi/wheezes - Cardiovascular Exam Cardiovascular Exam: REGULAR RHYTHM, +S1, +S2. absent: Systolic Murmur - GI/Abdominal Exam GI & Abdominal Exam: Normal Bowel Sounds, Soft. absent: Distended, Firm, Guarding, Rigid, Tenderness - Extremities Exam Extremities exam: LLE tenderness; LLE warm pulses present; dressing clean. Delayed cap refil BL LE; Pulses are dopplerable bilaterally. - Back Exam Back exam: absent: CVA tenderness (L), CVA tenderness (R), paraspinal tenderness - Neurological Exam Neurological exam: Alert, CN II-XII Intact, Oriented x3 Additional comments: motor and sensory grossly intact motor 5/5 all extremities - Psychiatric Exam Psychiatric exam: Normal Affect, Normal Mood - Skin Skin Exam: Dry, Warm Assessment and Plan - Assessment and Plan (Free Text) Assessment: 62M, with PMHx of chronic LLE wound with newly diagnosed DVT, active smoker, bipolar disorder/schizophrenia, and prostate cancer (in remission) admitted for provoked DVT likely due to LLE ulcer with cellulitis and recent hospital stay. Repeat LE duplex shows no evidence of DVT however, prior LLE duplex report from [facility] shows evidence of DVT Podiatry following to address wound. Patient will be anticoagulated w/ xarelto as it was confirmed that his insurance covers. Patient had an MRA of the LLE performed to evaluate BL LLE Vasculature. MRA revealed BL Anterior tibial occlusion; currently pending recommendations per IR / Vascular for intervention. PLAN: Peripheral Arterial Disease: BL LE MRA IMPRESSION: Short-segment occlusions in the right SF; Bilateral anterior tibial occlusion Art duplex shows - abnormal CHRISTIAN at rest; Occlusive disease of R SFA, Left popliteal, trifurcation, and /or tibial disease Pending Reccs for intervention at this time Provoked DVT, likely due to LLE ulcer with cellulitis and recent hospital stay LE doppler negative at this time Records from 02/02/18 show DVT in distal superficial femoral vein, and left popliteal vein. Cont Holding xarelto C/w Lovenox 80 Q12 in anticipation of vascular procedure Chronic LLE ulcer with cellulitis 2/2 Peripheral Vascular Disease Non toxic; no s/s infection; afebrile w/o leukocytosis Tib/Fib x-ray (02/02) - soft tissue swelling without acute articular or osseous abnormality. 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 No jaundice/abnormal LFT. Continue to trend for now Prophylaxis - Protonix/Anticoagulant therapy DISPO: Inpatient admission for continued work up/ management of Lower extremity peripheral arterial disease, chronic LLE ulcer, Provoked DVT, and comorbidities. We will continue inpatient admission if there are plans for vascular intervention. Patient is to follow up w/ previous PMD in [place] or w/ [facility]. Patient was seen, examined and discussed w/ attending physician Dr. Jcarlos Olvera DO PGY1 Internal Medicine [employer] - Pager [phone] <Benny Garber - Last Filed: 02/10/18 18:42> Objective - Vital Signs/Intake and Output Vital Signs (last 24 hours): Temp Pulse Resp BP Pulse Ox 97.4 F L 76 20 108/69 98 02/10/18 16:23 02/10/18 16:23 02/10/18 16:23 02/10/18 16:23 02/10/18 16:23 Intake and Output: 02/10/18 02/10/18 06:59 18:59 Intake Total 1900 Output Total 700 Balance 1200 - Medications Medications: Current Medications Acetaminophen (Tylenol 325mg Tab) 650 mg PO Q6H PRN PRN Reason: Pain, Mild (1-3) Last Admin: 02/08/18 10:06 Dose: 650 mg Amlodipine Besylate (Norvasc) 2.5 mg PO DAILY [facility] Last Admin: 02/10/18 11:04 Dose: 2.5 mg Clonazepam (Klonopin) 0.25 mg PO [facility]; Protocol Last Admin: 02/10/18 10:59 Dose: 0.25 mg Escitalopram Oxalate (Lexapro) 20 mg PO DAILY [facility] Last Admin: 02/10/18 10:59 Dose: 20 mg Folic Acid (Folic Acid) 1 mg PO DAILY [facility] Last Admin: 02/10/18 10:58 Dose: 1 mg Furosemide (Lasix) 40 mg PO DAILY [facility] Last Admin: 02/10/18 11:01 Dose: 40 mg Sodium Chloride (Sodium Chloride 0.9%) 1,000 mls @ 100 mls/hr IV .Q10H [facility] Last Admin: 02/10/18 16:29 Dose: Not Given Multivitamins (Thera Tab) 1 tab PO 0800 [facility] Last Admin: 02/10/18 11:00 Dose: 1 tab Mupirocin (Bactroban Ointment) 0 gm TOP BID [facility] Last Admin: 02/10/18 15:00 Dose: Not Given Nicotine (Nicoderm Cq) 1 patch TD DAILY [facility] Last Admin: 02/10/18 11:05 Dose: Not Given Pantoprazole Sodium (Protonix Ec Tab) 40 mg PO 0600 [facility] Last Admin: 02/10/18 05:31 Dose: 40 mg Risperidone (Risperdal Tab) 2 mg PO [facility]; Protocol Thiamine HCl (Vitamin B1 Tab) 100 mg PO DAILY [facility] Last Admin: 02/10/18 10:58 Dose: 100 mg Tramadol HCl (Ultram) 50 mg PO Q6H PRN PRN Reason: Pain, severe (8-10) Last Admin: 02/10/18 11:01 Dose: 50 mg Vitamin A (Vitamin A & D Oint Ud Foilpak) 1 ea TOP DAILY [facility] Last Admin: 02/10/18 10:58 Dose: 1 ea - Labs Labs: 02/10/18 06:00 02/10/18 06:00 PT 10.9 SECONDS (9.4-12.5) 02/10/18 06:00 INR 0.95 02/10/18 06:00 APTT 33.0 Seconds (25.1-36.5) 02/10/18 06:00 Attending/Attestation - Attestation I have personally seen and examined this patient.: Yes I have fully participated in the care of the patient.: Yes I have reviewed all pertinent clinical information, including history, physical exam and plan: Yes Notes (Text): 02/10/18 18:41 Attending note; Patient seen and examined With resident. patient is alert and awake. Not in any acute distress. Ambulating without difficulty. Patient is a 62-year-old male with PMH of chronic LLE wound with newly diagnosed DVT, active smoker, bipolar disorder/schizophrenia is admitted with leg pain. Currently with left lower wound. Currently getting local wound care by podiatry. Off antibiotics. Needs to follow up with outpatient wound care center. left lower extremity DVT; started on xarelto. Currently Doppler is negative. arterial Doppler showed significant bilateral vascular disease. Case reviewed with Dr. Ashish Beard in detail. We will hold xarelto. started on subcutaneous cutaneous Lovenox. Plan for MRA of lower extremity today. patient needs IV Ativan before MRI. History of schizophrenia; psychiatric evaluation appreciated. Continue clonazepam, risperidone and Lexapro. Patient is strongly advised to follow- PMD of choice upon discharge.
--- NOTE | 2018-02-09 23:32 | PN ---
DATE: 02/09/2018 SUBJECTIVE: The patient is a 62-year-old white male with a history of schizophrenia which was associated with some mood elevation during his hospital stay. He is presently being treated for cellulitis. The patient appears to be under reasonably good behavioral control. He is alert, oriented, but at times, tangential and overinclusive. He denies any mood disturbance and does not appear to be internally preoccupied. He is being maintained on Lexapro 20 mg and Risperdal 2 mg. Klonopin 0.25 mg was started yesterday by Dr. Ferreira. Urbano Raza MD/ PhD
--- NOTE | 2018-02-09 23:37 | PN ---
DATE: 02/09/2018 SUBJECTIVE: The patient is in bed, in no acute distress, nontoxic. PHYSICAL EXAMINATION: VITAL SIGNS: Temperature is 98, blood pressure is 110/60, respiratory rate of 16. HEENT: Examination of HEENT is unremarkable. NECK: Supple. LUNGS: Have decreased breath sounds. HEART: Normal S1 and S2. ABDOMEN: Soft. LABORATORY DATA: Laboratory examination reveals a white count of 5.2. Chemistries are noted. Urinalysis is reviewed. Toxicology is reviewed. The alcohol level is noted. Serology reveals HIV is negative. Microbiology reveals Staph epi from the left leg. The urine has a gram-positive cocci. Review of orders confirms the patient to be off of antibiotics. The patient also had an MRA of the lower extremity with short segment occlusions in the right SF. ASSESSMENT AND PLAN: This is a 62-year-old male with hepatitis C, prostate cancer, schizophrenia, anxiety, depression, bipolar, peripheral arterial disease. Etiology nonhealing ulcer, most likely from underlying peripheral arterial disease; however, biopsy should be sent for AFB smears, fungal smears and cultures and Gram stain and routine cultures and pathology. Jhonatan Giraldo MD
[2018-02-10] MEDS: Pantoprazole 40 mg EC Tab PO SCH (05:31)
[2018-02-10] MEDS: Enoxaparin 80 mg Syringe SC SCH (05:31)
[2018-02-10 06:53] LABS: INR 0.95; PROTHROMBIN TIME 10.9 SECONDS (9.4-12.5)
[2018-02-10 06:59] LABS: BASO # 0.04 K/mm3 (0.0-2.0); BASO % 0.7 % (0.0-3.0); EOS # 0.4 (0.0-0.7); EOS % 7.1 % (1.5-5.0); GRAN # 3.29 (1.4-6.5); GRAN % 57.1 % (50.0-68.0); HEMOGLOBIN 12.5 g/dL (14.0-18.0); LYMPH # 1.6 (1.2-3.4); MEAN CELL VOLUME 93.1 fl (80.0-105.0); MEAN CORPUSCULAR HGB CONC 33.3 g/dl (31.0-37.0); MEAN PLATELET VOLUME 9.3 fl (7.0-11.0); MONO # 0.5 (0.1-0.6); MONO % 8.1 % (1.0-6.0); RBC 4.03 10^6/uL (3.5-6.1); RED CELL DISTRIBUTION WIDTH 14.2 % (11.5-14.5); WHITE BLOOD COUNT 5.8 10^3/ul (4.5-11.0)
[2018-02-10 07:33] LABS: ALB/GLOB RATIO 1.2 (1.1-1.8); ALBUMIN 3.9 g/dL (3.0-4.8); ALT/SGPT 38 U/L (7-56); AST/SGOT 27 U/L (17-59); BLOOD UREA NITROGEN 20 mg/dL (7-21); CALCIUM 8.9 mg/dL (8.4-10.5); GFR NON-AFRICAN AMERICAN > 60
[2018-02-10] MEDS: Vitamins A & D Oint UD Foilpak TOP SCH (10:58)
[2018-02-10] MEDS: Multivitamin Therapeutic Tab PO SCH (11:00)
--- NOTE | 2018-02-10 11:38 | CP.PCM.PN ---
<Jessie Atkinson - Last Filed: 02/10/18 12:50> Subjective - Date & Time of Evaluation Date of Evaluation: 02/10/18 Time of Evaluation: 11:34 - Subjective Subjective: Podiatry progress note for Dr. Savage: 62 yo male seen and evaluated for L lower leg ulceration. Patient is resting comfortably bedside and denies any acute events overnight. Patient currently reports pain to his L lower extremity. Patient is cooperative this morning and aware of DVT diagnosis. States he would like his toenails clipped. Denies any new pedal complaints at this time. Denies N/V/F/SOB. Objective - Vital Signs/Intake and Output Vital Signs (last 24 hours): Temp Pulse Resp BP Pulse Ox 97.8 F 67 20 118/72 94 L 02/10/18 08:26 02/10/18 08:26 02/10/18 08:26 02/10/18 11:04 02/10/18 08:26 Intake and Output: 02/10/18 02/10/18 06:59 18:59 Intake Total 1900 Output Total 700 Balance 1200 - Medications Medications: Current Medications Acetaminophen (Tylenol 325mg Tab) 650 mg PO Q6H PRN PRN Reason: Pain, Mild (1-3) Last Admin: 02/08/18 10:06 Dose: 650 mg Amlodipine Besylate (Norvasc) 2.5 mg PO DAILY [facility] Last Admin: 02/10/18 11:04 Dose: 2.5 mg Clonazepam (Klonopin) 0.25 mg PO [facility]; Protocol Last Admin: 02/10/18 10:59 Dose: 0.25 mg Enoxaparin Sodium (Lovenox) 80 mg SC Q12H [facility]; Protocol Last Admin: 02/10/18 05:31 Dose: 80 mg Enoxaparin Sodium (Lovenox) 80 mg SC ONCE ONE; Protocol Stop: 02/11/18 11:31 Escitalopram Oxalate (Lexapro) 20 mg PO DAILY [facility] Last Admin: 02/10/18 10:59 Dose: 20 mg Folic Acid (Folic Acid) 1 mg PO DAILY [facility] Last Admin: 02/10/18 10:58 Dose: 1 mg Furosemide (Lasix) 40 mg PO DAILY [facility] Last Admin: 02/10/18 11:01 Dose: 40 mg Sodium Chloride (Sodium Chloride 0.9%) 1,000 mls @ 100 mls/hr IV .Q10H [facility] Last Admin: 02/09/18 22:30 Dose: 100 mls/hr Multivitamins (Thera Tab) 1 tab PO 0800 [facility] Last Admin: 02/10/18 11:00 Dose: 1 tab Mupirocin (Bactroban Ointment) 0 gm TOP BID [facility] Last Admin: 02/09/18 18:02 Dose: Not Given Nicotine (Nicoderm Cq) 1 patch TD DAILY [facility] Last Admin: 02/10/18 11:05 Dose: Not Given Pantoprazole Sodium (Protonix Ec Tab) 40 mg PO 0600 [facility] Last Admin: 02/10/18 05:31 Dose: 40 mg Risperidone (Risperdal Tab) 2 mg PO DAILY [facility]; Protocol Last Admin: 02/10/18 10:58 Dose: 2 mg Thiamine HCl (Vitamin B1 Tab) 100 mg PO DAILY [facility] Last Admin: 02/10/18 10:58 Dose: 100 mg Tramadol HCl (Ultram) 50 mg PO Q6H PRN PRN Reason: Pain, severe (8-10) Last Admin: 02/10/18 11:01 Dose: 50 mg Vitamin A (Vitamin A & D Oint Ud Foilpak) 1 ea TOP DAILY [facility] Last Admin: 02/10/18 10:58 Dose: 1 ea - Labs Labs: 02/10/18 06:00 02/10/18 06:00 PT 10.9 SECONDS (9.4-12.5) 02/10/18 06:00 INR 0.95 02/10/18 06:00 APTT 33.0 Seconds (25.1-36.5) 02/10/18 06:00 - Constitutional Appears: Well, Non-toxic, No Acute Distress - Head Exam Head Exam: ATRAUMATIC, NORMOCEPHALIC - Extremities Exam Additional comments: LLE focused exam: Vasc: DP/PT pulses palpable bilaterally, +2 pitting edema noted both lower extremities L>R. Ortho: Pain upon palpation bari-wound, MMT 5/5, tenderness upon calf compression Neuro: Decreased protective sensation, gross sensation intact Derm: Full thickeness ulceration noted to the anterior aspect of the L leg m easuring approximately 4.5 x 3.5 x 0.3, base is 100% ranular, minimal serous drainage noted, no purulence, no malodor, no tunneling, no tracking, no probe to bone. No cellulitis noted - Neurological Exam Neurological Exam: Alert, Awake - Psychiatric Exam Psychiatric exam: Normal Affect, Normal Mood - Skin Skin Exam: Normal Color Assessment and Plan - Assessment and Plan (Free Text) Assessment: 62 yo male seen and evaluated for L lower leg ulceration Plan: Patient seen and evaluated with Dr. Savage Afebrile, absent leukocytosis Local wound care: L ulceration dressed with bactroban xeroform and DSD. Wound cultures of the left leg; Staph epidermidis Arterial doppler b/l (02/06); No evidence of DVT to b/l lower extremities - Report from 02/02 taken at [facility]: DVT in L distal superficial femoral vein and popliteal vein, patient on xarelto per medicine team Nails debrided using a sterile nail nipper x 10; no complications Podiatry will continue to follow, pending D/C patient to follow in wound care center <Antonio Savage - Last Filed: 02/11/18 11:23> Objective - Vital Signs/Intake and Output Vital Signs (last 24 hours): Temp Pulse Resp BP Pulse Ox 97.3 F L 75 20 107/69 95 02/11/18 06:00 02/11/18 06:00 02/11/18 06:00 02/11/18 09:40 02/11/18 06:00 Intake and Output: 02/11/18 02/11/18 06:59 18:59 Intake Total 480 Output Total 500 Balance -20 - Medications Medications: Current Medications Acetaminophen (Tylenol 325mg Tab) 650 mg PO Q6H PRN PRN Reason: Pain, Mild (1-3) Last Admin: 02/08/18 10:06 Dose: 650 mg Amlodipine Besylate (Norvasc) 2.5 mg PO DAILY [facility] Last Admin: 02/11/18 09:40 Dose: 2.5 mg Clonazepam (Klonopin) 0.25 mg PO AMHS [facility]; Protocol Last Admin: 02/11/18 09:41 Dose: 0.25 mg Escitalopram Oxalate (Lexapro) 20 mg PO DAILY [facility] Last Admin: 02/11/18 09:40 Dose: 20 mg Folic Acid (Folic Acid) 1 mg PO DAILY [facility] Last Admin: 02/11/18 09:41 Dose: 1 mg Furosemide (Lasix) 40 mg PO DAILY [facility] Last Admin: 02/11/18 09:40 Dose: 40 mg Sodium Chloride (Sodium Chloride 0.9%) 1,000 mls @ 100 mls/hr IV .Q10H [facility] Last Admin: 02/10/18 16:29 Dose: Not Given Multivitamins (Thera Tab) 1 tab PO 0800 [facility] Last Admin: 02/11/18 09:41 Dose: 1 tab Mupirocin (Bactroban Ointment) 0 gm TOP BID [facility] Last Admin: 02/10/18 15:00 Dose: Not Given Nicotine (Nicoderm Cq) 1 patch TD DAILY [facility] Last Admin: 02/11/18 09:44 Dose: Not Given Pantoprazole Sodium (Protonix Ec Tab) 40 mg PO 0600 [facility] Last Admin: 02/11/18 05:47 Dose: 40 mg Risperidone (Risperdal Tab) 2 mg PO AMHS [facility]; Protocol Last Admin: 02/11/18 09:41 Dose: 2 mg Thiamine HCl (Vitamin B1 Tab) 100 mg PO DAILY [facility] Last Admin: 02/11/18 09:40 Dose: 100 mg Tramadol HCl (Ultram) 50 mg PO Q6H PRN PRN Reason: Pain, severe (8-10) Last Admin: 02/10/18 21:16 Dose: 50 mg Vitamin A (Vitamin A & D Oint Ud Foilpak) 1 ea TOP DAILY [facility] Last Admin: 02/10/18 10:58 Dose: 1 ea - Labs Labs: 02/11/18 06:30 02/11/18 06:30 PT 10.9 SECONDS (9.4-12.5) 02/10/18 06:00 INR 0.95 02/10/18 06:00 APTT 33.0 Seconds (25.1-36.5) 02/10/18 06:00 Attending/Attestation - Attestation I have personally seen and examined this patient.: Yes I have fully participated in the care of the patient.: Yes I have reviewed all pertinent clinical information, including history, physical exam and plan: Yes
[2018-02-10] MEDS: Mupirocin 2% Ointment 15 GM TUBE TOP SCH (15:00)
--- NOTE | 2018-02-10 15:56 | CP.PCM.PN ---
<Pb Olvera - Last Filed: 02/10/18 18:14> Subjective - Date & Time of Evaluation Date of Evaluation: 02/10/18 Time of Evaluation: 15:51 - Subjective Subjective: Pb Olvera DO PGY1 - Internal Medicine Associate [employer] - Hospital Progress Note Seen and examined at bedside this AM. Underwent MRA yesterday NO acute events overnight; NO complaints voiced at bedside today Patient is seen freely ambulating 3No/So without any problem. Objective - Vital Signs/Intake and Output Vital Signs (last 24 hours): Temp Pulse Resp BP Pulse Ox 97.8 F 67 20 118/72 94 L 02/10/18 08:26 02/10/18 08:26 02/10/18 08:26 02/10/18 11:04 02/10/18 08:26 Intake and Output: 02/10/18 02/10/18 06:59 18:59 Intake Total 1900 Output Total 700 Balance 1200 - Medications Medications: Current Medications Acetaminophen (Tylenol 325mg Tab) 650 mg PO Q6H PRN PRN Reason: Pain, Mild (1-3) Last Admin: 02/08/18 10:06 Dose: 650 mg Amlodipine Besylate (Norvasc) 2.5 mg PO DAILY [facility] Last Admin: 02/10/18 11:04 Dose: 2.5 mg Clonazepam (Klonopin) 0.25 mg PO [facility]; Protocol Last Admin: 02/10/18 10:59 Dose: 0.25 mg Enoxaparin Sodium (Lovenox) 80 mg SC Q12H [facility]; Protocol Last Admin: 02/10/18 05:31 Dose: 80 mg Enoxaparin Sodium (Lovenox) 80 mg SC ONCE ONE; Protocol Stop: 02/11/18 11:31 Escitalopram Oxalate (Lexapro) 20 mg PO DAILY [facility] Last Admin: 02/10/18 10:59 Dose: 20 mg Folic Acid (Folic Acid) 1 mg PO DAILY [facility] Last Admin: 02/10/18 10:58 Dose: 1 mg Furosemide (Lasix) 40 mg PO DAILY [facility] Last Admin: 02/10/18 11:01 Dose: 40 mg Sodium Chloride (Sodium Chloride 0.9%) 1,000 mls @ 100 mls/hr IV .Q10H [facility] Last Admin: 02/09/18 22:30 Dose: 100 mls/hr Multivitamins (Thera Tab) 1 tab PO 0800 [facility] Last Admin: 02/10/18 11:00 Dose: 1 tab Mupirocin (Bactroban Ointment) 0 gm TOP BID [facility] Last Admin: 02/10/18 15:00 Dose: Not Given Nicotine (Nicoderm Cq) 1 patch TD DAILY [facility] Last Admin: 02/10/18 11:05 Dose: Not Given Pantoprazole Sodium (Protonix Ec Tab) 40 mg PO 0600 [facility] Last Admin: 02/10/18 05:31 Dose: 40 mg Risperidone (Risperdal Tab) 2 mg PO DAILY [facility]; Protocol Last Admin: 02/10/18 10:58 Dose: 2 mg Thiamine HCl (Vitamin B1 Tab) 100 mg PO DAILY [facility] Last Admin: 02/10/18 10:58 Dose: 100 mg Tramadol HCl (Ultram) 50 mg PO Q6H PRN PRN Reason: Pain, severe (8-10) Last Admin: 02/10/18 11:01 Dose: 50 mg Vitamin A (Vitamin A & D Oint Ud Foilpak) 1 ea TOP DAILY [facility] Last Admin: 02/10/18 10:58 Dose: 1 ea - Labs Labs: 02/10/18 06:00 02/10/18 06:00 PT 10.9 SECONDS (9.4-12.5) 02/10/18 06:00 INR 0.95 02/10/18 06:00 APTT 33.0 Seconds (25.1-36.5) 02/10/18 06:00 Physical Exam - Constitutional Appears: No Acute Distress - Head Exam Head Exam: ATRAUMATIC, NORMAL INSPECTION, NORMOCEPHALIC - Eye Exam Eye Exam: Conjunctival injection (mild b/l), EOMI, Normal appearance, PERRL - ENT Exam ENT Exam: Mucous Membranes Moist - Respiratory Exam Respiratory Exam: CTABL no rales/ronchi/wheezes - Cardiovascular Exam Cardiovascular Exam: REGULAR RHYTHM, +S1, +S2. absent: Systolic Murmur - GI/Abdominal Exam GI & Abdominal Exam: Normal Bowel Sounds, Soft. absent: Distended, Firm, Guarding, Rigid, Tenderness - Extremities Exam Extremities exam: LLE tenderness; LLE warm pulses present; dressing clean. Delayed cap refil BL LE; Pulses are dopplerable bilaterally. - Back Exam Back exam: absent: CVA tenderness (L), CVA tenderness (R), paraspinal tenderness - Neurological Exam Neurological exam: Alert, CN II-XII Intact, Oriented x3 Additional comments: motor and sensory grossly intact ; BL LE are not cyanotic appearing motor 5/5 all extremities - Psychiatric Exam Psychiatric exam: Normal Affect, Normal Mood - Skin Skin Exam: Dry, Warm Assessment and Plan - Assessment and Plan (Free Text) Assessment: 62M, with PMHx of chronic LLE wound with newly diagnosed DVT, active smoker, bipolar disorder/schizophrenia, and prostate cancer (in remission) admitted for provoked DVT likely due to LLE ulcer with cellulitis and recent hospital stay. Repeat LE duplex shows no evidence of DVT however, prior LLE duplex report from [facility] [place] shows evidence of DVT Podiatry following to address wound. Patient will be anticoagulated w/ xarelto as it was confirmed that his insurance covers. Patient had an MRA of the LLE performed to evaluate BL LLE Vasculature. MRA revealed BL Anterior tibial occlusion; as per IR Dr. Beard, Patient will undergo intervention on 02/11 PLAN: Peripheral Arterial Disease: BL LE MRA IMPRESSION: Short-segment occlusions in the right SF; Bilateral anterior tibial occlusion Art duplex shows - abnormal CHRISTIAN at rest; Occlusive disease of R SFA, Left popliteal, trifurcation, and /or tibial disease Will undergo IR intervention 02/11 Provoked DVT, likely due to LLE ulcer with cellulitis and recent hospital stay LE doppler negative at this time Records from 02/02/18 show DVT in distal superficial femoral vein, and left popliteal vein. Cont Holding xarelto Lovenox x1 admin this AM will be held tonight and tomorrow AM Will resume post procedure Chronic LLE ulcer with cellulitis 2/2 Peripheral Vascular Disease Non toxic; no s/s infection; afebrile w/o leukocytosis Tib/Fib x-ray (02/02) - soft tissue swelling without acute articular or osseous abnormality. healed fracture of proximal l fibula CRP normal; ESR elevated Off of abx; Chronic open would does not require abx as per ID Tylenol 650 Q6 PRN Pain Ultram 50 Q6 PRN Podiatry following,will see patient on daily basis ; Pod will follow up w/ pt in wound care once DC'd Alcohol abuse Cont Thiamine, folate, multivitamin counselor supervisor for cessation Active smoker nicoderm patch counselor supervisor for cessation Bipolar disorder, schizophrenia, anxiety, depression, Increased risperdone to 2mg [facility] as per psych continue home, lexapro C/w klonopin 0.25mg [facility] Psych following appreiate reccs HTN continue home lasix and norvasc Prostate cancer dx in 2016, s/p prostatectomy - pt to follow up with his oncologist outpatient Hx hepatitis C (1980s, work related accident), unknown treatment - No abdominal complaint. No jaundice/abnormal LFT. Continue to trend for now Prophylaxis - Protonix/Anticoagulant therapy DISPO: Inpatient admission for continued work up/ management of Lower extremity peripheral arterial disease, chronic LLE ulcer, Provoked DVT, and comorbidities. We will continue inpatient admission if there are plans for vascular intervention. Patient is to follow up w/ previous PMD in [place] or w/ [facility]. Patient was seen, examined and discussed w/ attending physician Dr. Jcarlos Olvera DO PGY1 Internal Medicine Associate [employer] - Pager [phone] <Benny Garber - Last Filed: 02/10/18 18:45> Objective - Vital Signs/Intake and Output Vital Signs (last 24 hours): Temp Pulse Resp BP Pulse Ox 97.4 F L 76 20 108/69 98 02/10/18 16:23 02/10/18 16:23 02/10/18 16:23 02/10/18 16:23 02/10/18 16:23 Intake and Output: 02/10/18 02/10/18 06:59 18:59 Intake Total 1900 Output Total 700 Balance 1200 - Medications Medications: Current Medications Acetaminophen (Tylenol 325mg Tab) 650 mg PO Q6H PRN PRN Reason: Pain, Mild (1-3) Last Admin: 02/08/18 10:06 Dose: 650 mg Amlodipine Besylate (Norvasc) 2.5 mg PO DAILY [facility] Last Admin: 02/10/18 11:04 Dose: 2.5 mg Clonazepam (Klonopin) 0.25 mg PO [facility]; Protocol Last Admin: 02/10/18 10:59 Dose: 0.25 mg Escitalopram Oxalate (Lexapro) 20 mg PO DAILY [facility] Last Admin: 02/10/18 10:59 Dose: 20 mg Folic Acid (Folic Acid) 1 mg PO DAILY [facility] Last Admin: 02/10/18 10:58 Dose: 1 mg Furosemide (Lasix) 40 mg PO DAILY [facility] Last Admin: 02/10/18 11:01 Dose: 40 mg Sodium Chloride (Sodium Chloride 0.9%) 1,000 mls @ 100 mls/hr IV .Q10H [facility] Last Admin: 02/10/18 16:29 Dose: Not Given Multivitamins (Thera Tab) 1 tab PO 0800 [facility] Last Admin: 02/10/18 11:00 Dose: 1 tab Mupirocin (Bactroban Ointment) 0 gm TOP BID [facility] Last Admin: 02/10/18 15:00 Dose: Not Given Nicotine (Nicoderm Cq) 1 patch TD DAILY [facility] Last Admin: 02/10/18 11:05 Dose: Not Given Pantoprazole Sodium (Protonix Ec Tab) 40 mg PO 0600 [facility] Last Admin: 02/10/18 05:31 Dose: 40 mg Risperidone (Risperdal Tab) 2 mg PO [facility]; Protocol Thiamine HCl (Vitamin B1 Tab) 100 mg PO DAILY [facility] Last Admin: 02/10/18 10:58 Dose: 100 mg Tramadol HCl (Ultram) 50 mg PO Q6H PRN PRN Reason: Pain, severe (8-10) Last Admin: 02/10/18 11:01 Dose: 50 mg Vitamin A (Vitamin A & D Oint Ud Foilpak) 1 ea TOP DAILY [facility] Last Admin: 02/10/18 10:58 Dose: 1 ea - Labs Labs: 02/10/18 06:00 02/10/18 06:00 PT 10.9 SECONDS (9.4-12.5) 02/10/18 06:00 INR 0.95 02/10/18 06:00 APTT 33.0 Seconds (25.1-36.5) 02/10/18 06:00 Attending/Attestation - Attestation I have personally seen and examined this patient.: Yes I have fully participated in the care of the patient.: Yes I have reviewed all pertinent clinical information, including history, physical exam and plan: Yes Notes (Text): 02/10/18 18:42 Attending note; Patient seen and examined With resident. patient is alert and awake. Not in any acute distress. Ambulating without difficulty. Patient is a 62-year-old male with PMH of chronic LLE wound with newly diagnosed DVT, active smoker, bipolar disorder/schizophrenia is admitted with leg pain. Currently with left lower wound. Currently getting local wound care by podiatry. Off antibiotics. Needs to follow up with outpatient wound care center. left lower extremity DVT; started on lovenox. Currently Doppler is negative. arterial Doppler showed significant bilateral vascular disease. MRA of lower extremity showed MRA revealed BL Anterior tibial occlusion. plan for angiogram and angioplasty by Dr. Ashish Beard tomorrow. got 1 dose of Lovenox today. Hold Lovenox for tomorrow till angioplasty. possible discharge home after angioplasty if clinically stable. History of schizophrenia; psychiatric evaluation appreciated. Continue clonazepam, risperidone and Lexapro. Patient is strongly advised to follow- PMD of choice upon discharge.
[2018-02-10] MEDS ORDERED: Enoxaparin 80 mg Syringe SC STA (16:01)
--- NOTE | 2018-02-10 16:25 | PN ---
DATE: 02/10/2018 SUBJECTIVE: The patient is seen in bed earlier today. The patient is in bed, no acute distress. PHYSICAL EXAMINATION: VITAL SIGNS: Temperature is 98, blood pressure is 130/70, respiratory rate of 18. HEENT: Examination of HEENT is unremarkable. NECK: Supple. LUNGS: Have decreased breath sounds. HEART: Normal S1, S2. ABDOMEN: Soft. LABORATORY DATA: Laboratory examination reveals the patient to have a white count of 5.8, hemoglobin of 12. Chemistries are noted. The urinalysis is noted. Serology reveals HIV is negative. Microbiology reveals Staph epi from the left leg and a gram-positive cocci in the urine. Blood cultures, no growth. Review of orders reveals the patient to be on no antibiotics. ASSESSMENT AND PLAN: A 62-year-old male with hepatitis C, prostate cancer, schizophrenia, anxiety, depression, bipolar, peripheral arterial disease, nonhealing left ulcer, probably from his peripheral arterial disease. The biopsies to be done of this chronic ulcer, should be sent for AFB smears and cultures, fungal smears and cultures and routine Gram stain and cultures in addition to pathology. The patient did have an MRA, which showed a short segment occlusion of right superficial femoral and bilateral anterior tibial occlusion. The patient also had an arterial ultrasound. Moderate abnormal ABIs on the right. The patient also had an ultrasound, which was a venous ultrasound, which was negative for deep venous thrombosis. We will keep the patient off of antibiotics. No evidence of an active infection, just a chronic ulcer with poor peripheral arterial disease. Jhonatan Giraldo MD
[2018-02-10] MEDS: Sodium Chloride 0.9% 1,000 ML IV SCH (16:29)
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
[2018-02-11] MEDS: Pantoprazole 40 mg EC Tab PO SCH (05:47)
[2018-02-11 07:05] LABS: BASO # 0.05 K/mm3 (0.0-2.0); EOS # 0.4 (0.0-0.7); EOS % 8.3 % (1.5-5.0); GRAN # 2.36 (1.4-6.5); GRAN % 48.7 % (50.0-68.0); HEMOGLOBIN 11.7 g/dL (14.0-18.0); LYMPH # 1.5 (1.2-3.4); LYMPH % 30.6 % (22.0-35.0); MEAN CELL VOLUME 92.5 fl (80.0-105.0); MEAN CORPUSCULAR HEMOGLOBIN 30.3 pg (25.0-35.0); MEAN CORPUSCULAR HGB CONC 32.8 g/dl (31.0-37.0); MEAN PLATELET VOLUME 9.4 fl (7.0-11.0); MONO # 0.6 (0.1-0.6); MONO % 11.4 % (1.0-6.0); RBC 3.86 10^6/uL (3.5-6.1); RED CELL DISTRIBUTION WIDTH 14.1 % (11.5-14.5); WHITE BLOOD COUNT 4.8 10^3/ul (4.5-11.0)
[2018-02-11 07:44] LABS: ALB/GLOB RATIO 1.1 (1.1-1.8); ALBUMIN 3.5 g/dL (3.0-4.8); ALT/SGPT 30 U/L (7-56); AST/SGOT 31 U/L (17-59); BLOOD UREA NITROGEN 21 mg/dL (7-21); CALCIUM 8.7 mg/dL (8.4-10.5); GFR NON-AFRICAN AMERICAN > 60
[2018-02-11] MEDS: Multivitamin Therapeutic Tab PO SCH (09:41)
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
[2018-02-11] MEDS ORDERED: Enoxaparin 80 mg Syringe SC ONE (11:30)
[2018-02-11] MEDS ORDERED: Heparin 2,000 ML IV ONE (12:59)
[2018-02-11] MEDS ORDERED: Nitroglycerin 50mg in D5W 50 MG/250 ML BOTTLE IV ONE (12:59)
[2018-02-11] MEDS ORDERED: Iodixanol 320 MG/ML 100 ML BOTTLE IV ONE (12:59)
[2018-02-11] MEDS ORDERED: Lidocaine 2% PF (10 ml) Amp ONE (12:59)
[2018-02-11] MEDS ORDERED: Iodixanol 320 MG/ML 200 ML BOTTLE IV ONE (12:59)
[2018-02-11] MEDS ORDERED: Midazolam 2 MG/2 ML VIAL ONE ×3 (13:12→14:02)
[2018-02-11] MEDS ORDERED: Sodium Chloride 0.45% 1,000 ML IV SCH (15:15)
--- NOTE | 2018-02-11 17:55 | CP.PCM.PN ---
<Jessie Atkinson - Last Filed: 02/11/18 17:51> Subjective - Date & Time of Evaluation Date of Evaluation: 02/11/18 Time of Evaluation: 17:51 - Subjective Subjective: Podiatry progress note for Dr. Savage: 62 yo male seen and evaluated for L lower leg ulceration. Patient is resting comfortably bedside and denies any acute events overnight. Patient currently reports pain to his L lower extremity. Denies any new pedal complaints at this time. Denies N/V/F/SOB. Objective - Vital Signs/Intake and Output Vital Signs (last 24 hours): Temp Pulse Resp BP Pulse Ox 98 F 62 12 151/76 H 95 02/11/18 16:17 02/11/18 16:17 02/11/18 16:17 02/11/18 16:17 02/11/18 06:00 Intake and Output: 02/11/18 02/11/18 06:59 18:59 Intake Total 480 Output Total 500 Balance -20 - Medications Medications: Current Medications Acetaminophen (Tylenol 325mg Tab) 650 mg PO Q6H PRN PRN Reason: Pain, Mild (1-3) Last Admin: 02/08/18 10:06 Dose: 650 mg Amlodipine Besylate (Norvasc) 2.5 mg PO DAILY [facility] Last Admin: 02/11/18 09:40 Dose: 2.5 mg Clonazepam (Klonopin) 0.25 mg PO AMHS [facility]; Protocol Last Admin: 02/11/18 09:41 Dose: 0.25 mg Escitalopram Oxalate (Lexapro) 20 mg PO DAILY [facility] Last Admin: 02/11/18 09:40 Dose: 20 mg Folic Acid (Folic Acid) 1 mg PO DAILY [facility] Last Admin: 02/11/18 09:41 Dose: 1 mg Furosemide (Lasix) 40 mg PO DAILY [facility] Last Admin: 02/11/18 09:40 Dose: 40 mg Sodium Chloride (Sodium Chloride 0.9%) 1,000 mls @ 100 mls/hr IV .Q10H [facility] Last Admin: 02/10/18 16:29 Dose: Not Given Sodium Chloride (Sodium Chloride 0.45%) 1,000 mls @ 100 mls/hr IV .Q10H [facility] Multivitamins (Thera Tab) 1 tab PO 0800 [facility] Last Admin: 02/11/18 09:41 Dose: 1 tab Mupirocin (Bactroban Ointment) 0 gm TOP BID [facility] Last Admin: 02/10/18 15:00 Dose: Not Given Nicotine (Nicoderm Cq) 1 patch TD DAILY [facility] Last Admin: 02/11/18 09:44 Dose: Not Given Ondansetron HCl (Zofran Inj) 4 mg IVP ONCE PRN PRN Reason: Nausea/Vomiting Pantoprazole Sodium (Protonix Ec Tab) 40 mg PO 0600 [facility] Last Admin: 02/11/18 05:47 Dose: 40 mg Risperidone (Risperdal Tab) 2 mg PO AMHS [facility]; Protocol Last Admin: 02/11/18 09:41 Dose: 2 mg Thiamine HCl (Vitamin B1 Tab) 100 mg PO DAILY [facility] Last Admin: 02/11/18 09:40 Dose: 100 mg Tramadol HCl (Ultram) 50 mg PO Q6H PRN PRN Reason: Pain, severe (8-10) Last Admin: 02/10/18 21:16 Dose: 50 mg Vitamin A (Vitamin A & D Oint Ud Foilpak) 1 ea TOP DAILY [facility] Last Admin: 02/10/18 10:58 Dose: 1 ea - Labs Labs: 02/11/18 06:30 02/11/18 06:30 PT 10.9 SECONDS (9.4-12.5) 02/10/18 06:00 INR 0.95 02/10/18 06:00 APTT 33.0 Seconds (25.1-36.5) 02/10/18 06:00 - Constitutional Appears: Well, Non-toxic, No Acute Distress - Head Exam Head Exam: ATRAUMATIC, NORMOCEPHALIC - Extremities Exam Additional comments: LLE focused exam: Vasc: DP/PT pulses palpable bilaterally, +2 pitting edema noted both lower extremities L>R. Ortho: Pain upon palpation bari-wound, MMT 5/5, tenderness upon calf compression Neuro: Decreased protective sensation, gross sensation intact Derm: Full thickeness ulceration noted to the anterior aspect of the L leg measuring approximately 4.5 x 3.5 x 0.3, base is 100% granular, minimal serous drainage noted, no purulence, no malodor, no tunneling, no tracking, no probe to bone. No cellulitis noted - Neurological Exam Neurological Exam: Alert, Awake, Oriented x3 - Psychiatric Exam Psychiatric exam: Normal Affect - Skin Skin Exam: Normal Color Assessment and Plan - Assessment and Plan (Free Text) Assessment: 62 yo male seen and evaluated for L lower leg ulceration; stable. Plan: Patient seen and evaluated with Dr. Savage Afebrile, absent leukocytosis Local wound care: L ulceration dressed with bactroban xeroform and DSD. Wound cultures of the left leg; Staph epidermidis Arterial doppler b/l (02/06); No evidence of DVT to b/l lower extremities - Report from 02/02 taken at [facility]: DVT in L distal superficial femoral vein and popliteal vein, patient on xarelto per medicine team Podiatry will continue to follow, pending D/C patient to follow in wound care center with Dr. Savage or Dr. weber. <Antonio Savage - Last Filed: 02/11/18 18:45> Objective - Vital Signs/Intake and Output Vital Signs (last 24 hours): Temp Pulse Resp BP Pulse Ox 97.7 F 63 18 139/79 95 02/11/18 18:21 02/11/18 18:21 02/11/18 18:21 02/11/18 18:21 02/11/18 06:00 Intake and Output: 02/11/18 02/11/18 06:59 18:59 Intake Total 480 Output Total 500 Balance -20 - Medications Medications: Current Medications Acetaminophen (Tylenol 325mg Tab) 650 mg PO Q6H PRN PRN Reason: Pain, Mild (1-3) Last Admin: 02/08/18 10:06 Dose: 650 mg Amlodipine Besylate (Norvasc) 2.5 mg PO DAILY [facility] Last Admin: 02/11/18 09:40 Dose: 2.5 mg Aspirin (Ecotrin) 81 mg PO DAILY [facility] Clonazepam (Klonopin) 0.25 mg PO [facility]; Protocol Last Admin: 02/11/18 09:41 Dose: 0.25 mg Escitalopram Oxalate (Lexapro) 20 mg PO DAILY [facility] Last Admin: 02/11/18 09:40 Dose: 20 mg Folic Acid (Folic Acid) 1 mg PO DAILY [facility] Last Admin: 02/11/18 09:41 Dose: 1 mg Furosemide (Lasix) 40 mg PO DAILY [facility] Last Admin: 02/11/18 09:40 Dose: 40 mg Sodium Chloride (Sodium Chloride 0.9%) 1,000 mls @ 100 mls/hr IV .Q10H [facility] Last Admin: 02/10/18 16:29 Dose: Not Given Sodium Chloride (Sodium Chloride 0.45%) 1,000 mls @ 100 mls/hr IV .Q10H [facility] Multivitamins (Thera Tab) 1 tab PO 0800 [facility] Last Admin: 02/11/18 09:41 Dose: 1 tab Mupirocin (Bactroban Ointment) 0 gm TOP BID [facility] Last Admin: 02/11/18 18:15 Dose: Not Given Nicotine (Nicoderm Cq) 1 patch TD DAILY [facility] Last Admin: 02/11/18 09:44 Dose: Not Given Ondansetron HCl (Zofran Inj) 4 mg IVP ONCE PRN PRN Reason: Nausea/Vomiting Pantoprazole Sodium (Protonix Ec Tab) 40 mg PO 0600 [facility] Last Admin: 02/11/18 05:47 Dose: 40 mg Risperidone (Risperdal Tab) 2 mg PO AMHS [facility]; Protocol Last Admin: 02/11/18 09:41 Dose: 2 mg Rivaroxaban (Xarelto) 15 mg PO BID [facility]; Protocol Thiamine HCl (Vitamin B1 Tab) 100 mg PO DAILY [facility] Last Admin: 02/11/18 09:40 Dose: 100 mg Tramadol HCl (Ultram) 50 mg PO Q6H PRN PRN Reason: Pain, severe (8-10) Last Admin: 02/10/18 21:16 Dose: 50 mg Vitamin A (Vitamin A & D Oint Ud Foilpak) 1 ea TOP DAILY [facility] Last Admin: 02/10/18 10:58 Dose: 1 ea - Labs Labs: 02/11/18 06:30 02/11/18 06:30 PT 10.9 SECONDS (9.4-12.5) 02/10/18 06:00 INR 0.95 02/10/18 06:00 APTT 33.0 Seconds (25.1-36.5) 02/10/18 06:00 Attending/Attestation - Attestation I have personally seen and examined this patient.: Yes I have fully participated in the care of the patient.: Yes I have reviewed all pertinent clinical information, including history, physical exam and plan: Yes
[2018-02-11] MEDS: Mupirocin 2% Ointment 15 GM TUBE TOP SCH (18:15)
--- NOTE | 2018-02-11 19:09 | PN ---
DATE: 02/11/2018 SUBJECTIVE: The patient is in bed, no acute distress, nontoxic. PHYSICAL EXAMINATION: VITAL SIGNS: On exam, temperature is 98, blood pressure is 130/70, respiratory rate of 18. HEENT: Examination of HEENT is unremarkable. NECK: Supple. LUNGS: Have decreased breath sounds. HEART: Normal S1 and S2. ABDOMEN: Soft. LABORATORY DATA: Laboratory examination reveals a white count of 4.8, hemoglobin 11, platelets of 144. Chemistries reveals a BUN of 21, creatinine of 0.8. Urinalysis is noted. Toxicology is reviewed. Serology is noted. Microbiology reveals a gram-positive cocci and a coag-negative Staph in the leg. ASSESSMENT AND PLAN: A 62-year-old male with hepatitis C, prostate cancer, schizophrenia, anxiety, depression, bipolar, peripheral arteries disease, nonhealing left ulcer, probably from his peripheral arterial disease. Biopsies to be done in a chronic ulcer. Send for AFB smears and cultures, fungal smears and cultures, routine Gram-stain and cultures and biopsy for pathology. The patient has peripheral arterial disease. We will follow with you for vascular intervention this morning today. Jhonatan Giraldo MD
--- NOTE | 2018-02-11 19:39 | VASCULAR ---
PROCEDURE: 1. Abdominal aortogram and bilateral lower extremity runoff with left selective views. 2. Multifocal left SFA jet stream atherectomy, drug-eluting balloon angioplasty, and stent placement HISTORY: Severe peripheral vascular disease. Smoker. Nonhealing ischemic ulceration left calf. PHYSICIAN(S): Ashish Beard M.D. TECHNIQUE: The relative risks and indications of the procedure were explained to the patient and consent obtained. The patient was hydrated prior to the procedure and the appropriate labs drawn. The patient was placed supine on the arteriogram table and the right groin prepped and draped in the usual sterile fashion. Conscious sedation and monitoring were provided throughout the procedure by a nurse. Via a right common femoral artery approach, a 5 Czech sheath was placed in the right groin. Through the sheath and over a guidewire, a 5 Czech flush catheter was placed in the abdominal aorta at the level of the renal arteries and a PA DSA abdominal aortogram performed. The catheter was pulled down to the aortic bifurcation and bilateral oblique DSA pelvic arteriograms performed. Overlapping bilateral lower extremity DSA arteriograms were obtained from the inguinal ligaments to the ankles. A 0.035 angled Glidewire was advanced over the bifurcation and placed in the mid left SFA. A 7 Czech 45 cm destination sheath was placed in the left common femoral artery. The multi focal calcified disease in the left SFA was crossed rather easily with a 0.035 glidewire and trail laser catheter. Exchange is made for a 0.017 support wire in the left peroneal artery. An Peralta filter was deployed in the left popliteal artery. Jet stream atherectomy of the proximal and mid left SFA was performed with a 2.4/3.4 catheter. Three passes were obtained. An improved but suboptimal result was obtained. The left SFA origin was dilated with a 7 mm drug-eluting balloon and an 8 mm angioplasty balloon. The calcified irregular disease in the mid left SFA was dilated with a 7 mm balloon. Subsequently a 6.5 by120 mm Supera stent was deployed in the mid left SFA. Completion angiograms were obtained. The sheath was removed and hemostasis obtained. Pull-back pressures were obtained across the SFA before and after intervention. A 60 mm gradient was noted initially. No significant gradient was seen at the completion of the procedure. FINDINGS: There are 2 left renal arteries and a single right renal artery present which are patent. Smooth calcification abdominal aorta is seen. The abdominal aorta is widely patent. Aortic bifurcation is patent. The common and external iliac arteries are patent and normal on two views. The internal iliac arteries are patent.. Right lower extremity: The right common femoral artery is patent. The right profunda femoral artery is enlarged.. The right superficial femoral artery is occluded in its mid segment. There is reconstitution of the distal right SF the right popliteal artery is patent and continuous. There is 2 vessel runoff via the right posterior tibial and peroneal arteries. The right anterior tibial artery is atretic. Left lower extremity: Left common femoral artery is patent. The left profunda femoral artery is hypertrophied. The left superficial femoral artery is patent with multiple calcified polypoid stenoses in the proximal and mid segments. A significant pull-back gradient was demonstrated, approximately 60 mmHg. The left popliteal artery is patent and normal. There is 2 vessel runoff via large posterior tibial and peroneal arteries. The left anterior tibial artery occludes proximally IMPRESSION: 1.Multifocal calcified polypoid stenoses in the left proximal to mid SFA with a significant pressure gradient. 2. Successful left SFA jet stream atherectomy, drug-eluting balloon angioplasty, and stent placement 3. Mid right SFA occlusion.
--- NOTE | 2018-02-11 20:24 | CP.PCM.PN ---
<Pb Olvera - Last Filed: 02/11/18 20:15> Subjective - Date & Time of Evaluation Date of Evaluation: 02/11/18 Time of Evaluation: 20:15 - Subjective Subjective: Pb Olvera - PGY1 Internal Medicine Manager Film - Hospital Progress Note No acute events overnight underwent vascular procedure this afternoon. Tolerated well post procedure Patient is stable. Objective - Vital Signs/Intake and Output Vital Signs (last 24 hours): Temp Pulse Resp BP Pulse Ox 97.7 F 62 18 137/81 95 02/11/18 18:21 02/11/18 18:30 02/11/18 18:30 02/11/18 18:30 02/11/18 06:00 - Medications Medications: Current Medications Acetaminophen (Tylenol 325mg Tab) 650 mg PO Q6H PRN PRN Reason: Pain, Mild (1-3) Last Admin: 02/08/18 10:06 Dose: 650 mg Amlodipine Besylate (Norvasc) 2.5 mg PO DAILY [facility] Last Admin: 02/11/18 09:40 Dose: 2.5 mg Aspirin (Ecotrin) 81 mg PO DAILY [facility] Clonazepam (Klonopin) 0.25 mg PO AMHS [facility]; Protocol Last Admin: 02/11/18 09:41 Dose: 0.25 mg Escitalopram Oxalate (Lexapro) 20 mg PO DAILY [facility] Last Admin: 02/11/18 09:40 Dose: 20 mg Folic Acid (Folic Acid) 1 mg PO DAILY [facility] Last Admin: 02/11/18 09:41 Dose: 1 mg Furosemide (Lasix) 40 mg PO DAILY [facility] Last Admin: 02/11/18 09:40 Dose: 40 mg Sodium Chloride (Sodium Chloride 0.9%) 1,000 mls @ 100 mls/hr IV .Q10H [facility] Last Admin: 02/10/18 16:29 Dose: Not Given Sodium Chloride (Sodium Chloride 0.45%) 1,000 mls @ 100 mls/hr IV .Q10H [facility] Multivitamins (Thera Tab) 1 tab PO 0800 [facility] Last Admin: 02/11/18 09:41 Dose: 1 tab Mupirocin (Bactroban Ointment) 0 gm TOP BID [facility] Last Admin: 02/11/18 18:15 Dose: Not Given Nicotine (Nicoderm Cq) 1 patch TD DAILY [facility] Last Admin: 02/11/18 09:44 Dose: Not Given Ondansetron HCl (Zofran Inj) 4 mg IVP ONCE PRN PRN Reason: Nausea/Vomiting Pantoprazole Sodium (Protonix Ec Tab) 40 mg PO 0600 [facility] Last Admin: 02/11/18 05:47 Dose: 40 mg Risperidone (Risperdal Tab) 2 mg PO AMHS [facility]; Protocol Last Admin: 02/11/18 09:41 Dose: 2 mg Rivaroxaban (Xarelto) 15 mg PO BID [facility]; Protocol Thiamine HCl (Vitamin B1 Tab) 100 mg PO DAILY [facility] Last Admin: 02/11/18 09:40 Dose: 100 mg Tramadol HCl (Ultram) 50 mg PO Q6H PRN PRN Reason: Pain, severe (8-10) Last Admin: 02/10/18 21:16 Dose: 50 mg Vitamin A (Vitamin A & D Oint Ud Foilpak) 1 ea TOP DAILY [facility] Last Admin: 02/10/18 10:58 Dose: 1 ea - Labs Labs: 02/11/18 06:30 02/11/18 06:30 PT 10.9 SECONDS (9.4-12.5) 02/10/18 06:00 INR 0.95 02/10/18 06:00 APTT 33.0 Seconds (25.1-36.5) 02/10/18 06:00 Physical Exam - Constitutional Appears: No Acute Distress - Head Exam Head Exam: ATRAUMATIC, NORMAL INSPECTION, NORMOCEPHALIC - Eye Exam Eye Exam: Conjunctival injection (mild b/l), EOMI, Normal appearance, PERRL - ENT Exam ENT Exam: Mucous Membranes Moist - Respiratory Exam Respiratory Exam: CTABL no rales/ronchi/wheezes - Cardiovascular Exam Cardiovascular Exam: REGULAR RHYTHM, +S1, +S2. absent: Systolic Murmur - GI/Abdominal Exam GI & Abdominal Exam: Normal Bowel Sounds, Soft. absent: Distended, Firm, Guarding, Rigid, Tenderness - Extremities Exam Extremities exam: LLE tenderness; LLE warm pulses present; dressing clean. Delayed cap refil BL LE; Pulses are dopplerable bilaterally. - Back Exam Back exam: absent: CVA tenderness (L), CVA tenderness (R), paraspinal tenderness - Neurological Exam Neurological exam: Alert, CN II-XII Intact, Oriented x3 Additional comments: motor and sensory grossly intact ; BL LE are not cyanotic appearing motor 5/5 all extremities - Psychiatric Exam Psychiatric exam: Normal Affect, Normal Mood - Skin Skin Exam: Dry, Warm Assessment and Plan - Assessment and Plan (Free Text) Assessment: 62M, with PMHx of chronic LLE wound with newly diagnosed DVT, active smoker, bipolar disorder/schizophrenia, and prostate cancer (in remission) admitted for provoked DVT likely due to LLE ulcer with cellulitis and recent hospital stay. Repeat LE duplex shows no evidence of DVT however, prior LLE duplex report from [facility] shows evidence of DVT Podiatry following to address wound. Patient will be anticoagulated w/ xarelto as it was confirmed that his insurance covers. Patient had an MRA of the LLE performed to evaluate BL LLE Vasculature. MRA revealed BL Anterior tibial occlusion. This afternoon patient underwent vascular procedure w/ IR - Dr. Ashish Beard. He was found to have calcified stenosis of mid-left proximal SFA; L sfa was stented, R SFA occlusion was noted. Patient was stable post procedure, recovered in ICU and transferred to floors. Podiatry saw patient procedure. PLAN: Peripheral Arterial Disease: BL LE MRA IMPRESSION: Short-segment occlusions in the right SF; Bilateral anterior tibial occlusion Art duplex shows - abnormal CHRISTIAN at rest; Occlusive disease of R SFA, Left popliteal, trifurcation, and /or tibial disease Will undergo IR intervention 02/11 Provoked DVT, likely due to LLE ulcer with cellulitis and recent hospital stay LE doppler negative at this time Records from 02/02/18 show DVT in distal superficial femoral vein, and left popliteal vein. Xarelto to be resumed 02/12 Resume ASA in AM. Chronic LLE ulcer with cellulitis 2/2 Peripheral Vascular Disease Non toxic; no s/s infection; afebrile w/o leukocytosis Tib/Fib x-ray (02/02) - soft tissue swelling without acute articular or osseous abnormality. healed fracture of proximal l fibula CRP normal; ESR elevated Off of abx; Chronic open would does not require abx as per ID Tylenol 650 Q6 PRN Pain Ultram 50 Q6 PRN Podiatry following,will see patient on daily basis ; Pod will follow up w/ pt in wound care once DC'd Alcohol abuse Cont Thiamine, folate, multivitamin genetic counsellor for cessation Active smoker nicoderm patch genetic counsellor for cessation Bipolar disorder, schizophrenia, anxiety, depression, Increased risperdone to 2mg [facility] as per psych continue home, lexapro C/w klonopin 0.25mg [facility] Psych following appreiate reccs HTN continue home lasix and norvasc Prostate cancer dx in 2016, s/p prostatectomy - pt to follow up with his oncologist outpatient Hx hepatitis C (1980s, work related accident), unknown treatment - No abdominal complaint. No jaundice/abnormal LFT. Continue to trend for now Prophylaxis - Protonix/Anticoagulant therapy DISPO: Inpatient admission for continued work up/ management of Lower extremity peripheral arterial disease, chronic LLE ulcer, Provoked DVT, and comorbidities. He is s/p stenting of the Left SFA . He will be most likely discharged tomorrow if he remains stable w/o any significant findings. Patient is to follow up w/ previous PMD in [place] or w/ [facility]. Patient was seen, examined and discussed w/ attending physician Dr. Jcarlos Olvera DO PGY1 Internal Medicine Manager Film - Pager [phone] <Benny Garber - Last Filed: 02/12/18 14:02> Objective - Vital Signs/Intake and Output Vital Signs (last 24 hours): Temp Pulse Resp BP Pulse Ox 98 F 74 20 130/72 93 L 02/12/18 08:34 02/12/18 08:34 02/12/18 08:34 02/12/18 09:36 02/12/18 08:34 Intake and Output: 02/12/18 02/12/18 06:59 18:59 Intake Total 480 Output Total 500 Balance -20 - Medications Medications: Current Medications Acetaminophen (Tylenol 325mg Tab) 650 mg PO Q6H PRN PRN Reason: Pain, Mild (1-3) Last Admin: 02/08/18 10:06 Dose: 650 mg Amlodipine Besylate (Norvasc) 2.5 mg PO DAILY [facility] Last Admin: 02/12/18 09:36 Dose: 2.5 mg Clonazepam (Klonopin) 0.25 mg PO AMHS [facility]; Protocol Last Admin: 02/12/18 09:35 Dose: 0.25 mg Clopidogrel Bisulfate (Plavix) 75 mg PO DAILY [facility] Last Admin: 02/12/18 09:36 Dose: 75 mg Escitalopram Oxalate (Lexapro) 20 mg PO DAILY [facility] Last Admin: 02/12/18 09:36 Dose: 20 mg Folic Acid (Folic Acid) 1 mg PO DAILY [facility] Last Admin: 02/12/18 09:35 Dose: 1 mg Furosemide (Lasix) 40 mg PO DAILY [facility] Last Admin: 02/12/18 09:36 Dose: 40 mg Sodium Chloride (Sodium Chloride 0.9%) 1,000 mls @ 100 mls/hr IV .Q10H [facility] Last Admin: 02/10/18 16:29 Dose: Not Given Sodium Chloride (Sodium Chloride 0.45%) 1,000 mls @ 100 mls/hr IV .Q10H [facility] Last Admin: 02/12/18 06:13 Dose: 100 mls/hr Multivitamins (Thera Tab) 1 tab PO 0800 [facility] Last Admin: 02/12/18 09:41 Dose: 1 tab Mupirocin (Bactroban Ointment) 0 gm TOP BID [facility] Last Admin: 02/11/18 18:15 Dose: Not Given Nicotine (Nicoderm Cq) 1 patch TD DAILY [facility] Last Admin: 02/12/18 09:25 Dose: Not Given Ondansetron HCl (Zofran Inj) 4 mg IVP ONCE PRN PRN Reason: Nausea/Vomiting Pantoprazole Sodium (Protonix Ec Tab) 40 mg PO 0600 [facility] Last Admin: 02/12/18 06:09 Dose: 40 mg Risperidone (Risperdal Tab) 2 mg PO [facility]; Protocol Last Admin: 02/12/18 09:36 Dose: 2 mg Rivaroxaban (Xarelto) 15 mg PO BID [facility]; Protocol Last Admin: 02/12/18 09:37 Dose: 15 mg Thiamine HCl (Vitamin B1 Tab) 100 mg PO DAILY [facility] Last Admin: 02/12/18 09:37 Dose: 100 mg Tramadol HCl (Ultram) 50 mg PO Q6H PRN PRN Reason: Pain, severe (8-10) Last Admin: 02/12/18 06:52 Dose: 50 mg Vitamin A (Vitamin A & D Oint Ud Foilpak) 1 ea TOP DAILY [facility] Last Admin: 02/12/18 09:37 Dose: 1 ea - Labs Labs: 02/12/18 07:00 02/12/18 07:00 PT 10.9 SECONDS (9.4-12.5) 02/10/18 06:00 INR 0.95 02/10/18 06:00 APTT 33.0 Seconds (25.1-36.5) 02/10/18 06:00 Attending/Attestation - Attestation I have personally seen and examined this patient.: Yes I have fully participated in the care of the patient.: Yes I have reviewed all pertinent clinical information, including history, physical exam and plan: Yes Notes (Text): 02/12/18 14:01 Attending note; Patient seen and examined With resident. patient is alert and awake. Not in any acute distress. Ambulating without difficulty. Patient is a 62-year-old male with PMH of chronic LLE wound with newly diagnosed DVT, active smoker, bipolar disorder/schizophrenia is admitted with leg pain. Currently with left lower wound. Currently getting local wound care by podiatry. Off antibiotics. Needs to follow up with outpatient wound care center. left lower extremity DVT; started on lovenox. Currently Doppler is negative. arterial Doppler showed significant bilateral vascular disease. MRA of lower extremity showed Bilateral Anterior tibial occlusion. plan for angiogram and angioplasty by Dr. Ashish Beard today. Hold Lovenox for tomorrow till angioplasty. possible discharge home after angioplasty if clinically stable. History of schizophrenia; psychiatric evaluation appreciated. Continue clonazepam, risperidone and Lexapro. Patient is strongly advised to follow- PMD of choice upon discharge.
[2018-02-12] MEDS: Pantoprazole 40 mg EC Tab PO SCH (06:09)
[2018-02-12 07:49] LABS: BASO # 0.04 K/mm3 (0.0-2.0); BASO % 0.6 % (0.0-3.0); EOS # 0.3 (0.0-0.7); GRAN # 4.31 (1.4-6.5); GRAN % 62.7 % (50.0-68.0); HEMOGLOBIN 11.8 g/dL (14.0-18.0); LYMPH # 1.3 (1.2-3.4); LYMPH % 18.7 % (22.0-35.0); MEAN CELL VOLUME 91.5 fl (80.0-105.0); MEAN CORPUSCULAR HEMOGLOBIN 30.4 pg (25.0-35.0); MEAN CORPUSCULAR HGB CONC 33.2 g/dl (31.0-37.0); MEAN PLATELET VOLUME 9.4 fl (7.0-11.0); MONO # 0.9 (0.1-0.6); RBC 3.88 10^6/uL (3.5-6.1); WHITE BLOOD COUNT 6.9 10^3/ul (4.5-11.0)
[2018-02-12 08:04] LABS: ALB/GLOB RATIO 1.1 (1.1-1.8); ALBUMIN 3.5 g/dL (3.0-4.8); ALT/SGPT 32 U/L (7-56); AST/SGOT 33 U/L (17-59); BLOOD UREA NITROGEN 22 mg/dL (7-21); CALCIUM 8.7 mg/dL (8.4-10.5); GFR NON-AFRICAN AMERICAN > 60
[2018-02-12 08:36] VITALS: PULSE 74; RESP 20; TEMP 98; O2SAT 93
[2018-02-12] MEDS: Vitamins A & D Oint UD Foilpak TOP SCH (09:37)
[2018-02-12] MEDS: Multivitamin Therapeutic Tab PO SCH (09:41)
[2018-02-12 09:42] VITALS: BP 130/72
--- NOTE | 2018-02-12 11:19 | CP.PCM.PN ---
<Maldonado Bundy - Last Filed: 02/12/18 11:14> Subjective - Date & Time of Evaluation Date of Evaluation: 02/12/18 Time of Evaluation: 11:14 - Subjective Subjective: Podiatry progress note for Dr. Savage: 62 yo male seen and evaluated for L lower leg ulceration. Patient is resting comfortably bedside and NAD. Patient denies any acute events overnight. Patient states that he has pain at his L lower extremity. Patient denies any new pedal complaints at this time. He denies any overnight C/N/V/F/SOB. Objective - Vital Signs/Intake and Output Vital Signs (last 24 hours): Temp Pulse Resp BP Pulse Ox 98 F 74 20 130/72 93 L 02/12/18 08:34 02/12/18 08:34 02/12/18 08:34 02/12/18 09:36 02/12/18 08:34 - Medications Medications: Current Medications Acetaminophen (Tylenol 325mg Tab) 650 mg PO Q6H PRN PRN Reason: Pain, Mild (1-3) Last Admin: 02/08/18 10:06 Dose: 650 mg Amlodipine Besylate (Norvasc) 2.5 mg PO DAILY [facility] Last Admin: 02/12/18 09:36 Dose: 2.5 mg Clonazepam (Klonopin) 0.25 mg PO [facility]; Protocol Last Admin: 02/12/18 09:35 Dose: 0.25 mg Clopidogrel Bisulfate (Plavix) 75 mg PO DAILY [facility] Last Admin: 02/12/18 09:36 Dose: 75 mg Escitalopram Oxalate (Lexapro) 20 mg PO DAILY [facility] Last Admin: 02/12/18 09:36 Dose: 20 mg Folic Acid (Folic Acid) 1 mg PO DAILY [facility] Last Admin: 02/12/18 09:35 Dose: 1 mg Furosemide (Lasix) 40 mg PO DAILY [facility] Last Admin: 02/12/18 09:36 Dose: 40 mg Sodium Chloride (Sodium Chloride 0.9%) 1,000 mls @ 100 mls/hr IV .Q10H [facility] Last Admin: 02/10/18 16:29 Dose: Not Given Sodium Chloride (Sodium Chloride 0.45%) 1,000 mls @ 100 mls/hr IV .Q10H [facility] Last Admin: 02/12/18 06:13 Dose: 100 mls/hr Multivitamins (Thera Tab) 1 tab PO 0800 [facility] Last Admin: 02/12/18 09:41 Dose: 1 tab Mupirocin (Bactroban Ointment) 0 gm TOP BID [facility] Last Admin: 02/11/18 18:15 Dose: Not Given Nicotine (Nicoderm Cq) 1 patch TD DAILY [facility] Last Admin: 02/12/18 09:25 Dose: Not Given Ondansetron HCl (Zofran Inj) 4 mg IVP ONCE PRN PRN Reason: Nausea/Vomiting Pantoprazole Sodium (Protonix Ec Tab) 40 mg PO 0600 [facility] Last Admin: 02/12/18 06:09 Dose: 40 mg Risperidone (Risperdal Tab) 2 mg PO [facility]; Protocol Last Admin: 02/12/18 09:36 Dose: 2 mg Rivaroxaban (Xarelto) 15 mg PO BID [facility]; Protocol Last Admin: 02/12/18 09:37 Dose: 15 mg Thiamine HCl (Vitamin B1 Tab) 100 mg PO DAILY [facility] Last Admin: 02/12/18 09:37 Dose: 100 mg Tramadol HCl (Ultram) 50 mg PO Q6H PRN PRN Reason: Pain, severe (8-10) Last Admin: 02/12/18 06:52 Dose: 50 mg Vitamin A (Vitamin A & D Oint Ud Foilpak) 1 ea TOP DAILY [facility] Last Admin: 02/12/18 09:37 Dose: 1 ea - Labs Labs: 02/12/18 07:00 02/12/18 07:00 PT 10.9 SECONDS (9.4-12.5) 02/10/18 06:00 INR 0.95 02/10/18 06:00 APTT 33.0 Seconds (25.1-36.5) 02/10/18 06:00 - Constitutional Appears: Well, Non-toxic, No Acute Distress - Head Exam Head Exam: ATRAUMATIC, NORMOCEPHALIC - Extremities Exam Additional comments: LLE focused exam: Vasc: DP/PT pulses palpable bilaterally, +2 pitting edema noted both lower extremities L>R. Temp gradientr warm to cool from proximal to distal Neuro: Diminished protective sensation, gross sensation intact. Derm: Full thickness ulceration noted to the anterior aspect of the L leg m easuring approximately 4.1 x 3.0 x 0.3, base is 100% granular, minimal serous drainage noted, no purulence, no malodor, no tunneling, no tracking, no probe to bone. No cellulitis noted. No clinical signs of active infection. MSK: Pain upon palpation bari-wound, MMT 5/5 in all groups. - Neurological Exam Neurological Exam: Alert, Awake, Oriented x3 - Psychiatric Exam Psychiatric exam: Normal Affect, Normal Mood Assessment and Plan - Assessment and Plan (Free Text) Assessment: 62 yo male seen and evaluated for L lower leg stasis ulceration. Plan: Patient seen and evaluated at the bedside with Dr. Savage Plan discussed in details with attending Dr. Savage Charts, labs and vitals reviewed; Afebrile, absent leukocytosis Local wound care: L ulceration dressed with xeroform and DSD. Wound cultures of the left leg; Staph epidermidis Arterial doppler b/l (02/06); No evidence of DVT to b/l lower extremities Report from 02/02 taken at [facility]: DVT in L distal superficial femoral vein and popliteal vein, patient on xarelto per medicine team Podiatry will continue to follow up while the patient in house. patient to follow in wound care center with Dr. Savage or Dr. weber. <Antonio Savage - Last Filed: 02/15/18 17:09> Objective - Vital Signs/Intake and Output Vital Signs (last 24 hours): Temp Pulse Resp BP Pulse Ox 98 F 74 20 130/72 93 L 02/12/18 08:34 02/12/18 08:34 02/12/18 08:34 02/12/18 09:36 02/12/18 08:34 - Labs Labs: 02/12/18 07:00 02/12/18 07:00 PT 10.9 SECONDS (9.4-12.5) 02/10/18 06:00 INR 0.95 02/10/18 06:00 APTT 33.0 Seconds (25.1-36.5) 02/10/18 06:00 Attending/Attestation - Attestation I have personally seen and examined this patient.: Yes I have fully participated in the care of the patient.: Yes I have reviewed all pertinent clinical information, including history, physical exam and plan: Yes
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
--- NOTE | 2018-02-12 19:52 | PN ---
DATE: 02/12/2018 SUBJECTIVE: The patient was seen earlier this morning. No fevers. No chills. PHYSICAL EXAMINATION: VITAL SIGNS: Temperature is 98, blood pressure is 120/70, and respiratory rate of 16. HEENT: Unremarkable. NECK: Supple. LUNGS: Decreased breath sounds. HEART: Normal S1 and S2. ABDOMEN: Soft. LABORATORY EXAMINATION: Reveals a white count of 3.9, hemoglobin 11. ASSESSMENT AND PLAN: A 62-year-old male with hepatitis C, prostate cancer, schizophrenia, anxiety, depression, bipolar, peripheral arterial disease, nonhealing chronic ulcer, does not heal. Should have a biopsy with AFB and fungal smears and cultures and gram stains and routine cultures and pathology. Jhonatan Giraldo MD
== END 2018-02-12 14:43 | disposition home or self-care (01) | DRG 550 ==
LOC: ED 19:29 → ERH 21:19 → 3RNO 23:57 → 2RSO 02-11 16:30 → 3RNO 02-11 20:20
PROVIDERS: ADMIT Hospitalist; ATTEND Internal Medicine
PROC: 047L34Z Dilation of Left Femoral Artery with Drug-eluting Intraluminal Device, Percutaneous Approach (ICD-10-PCS; principal; 2018-02-11)
PROC: 04CL3ZZ Extirpation of Matter from Left Femoral Artery, Percutaneous Approach (ICD-10-PCS; 2018-02-11)
PROC: B41DYZZ Fluoroscopy of Aorta and Bilateral Lower Extremity Arteries using Other Contrast (ICD-10-PCS; 2018-02-11)
DX: I70.248 Atherosclerosis of native arteries of left leg with ulceration of other part of lower leg (principal); I82.412 Acute embolism and thrombosis of left femoral vein; I82.432 Acute embolism and thrombosis of left popliteal vein; L03.116 Cellulitis of left lower limb; B19.20 Unspecified viral hepatitis C without hepatic coma; F25.9 Schizoaffective disorder, unspecified; L97.929 Non-pressure chronic ulcer of unspecified part of left lower leg with unspecified severity; I70.201 Unspecified atherosclerosis of native arteries of extremities, right leg; F31.9 Bipolar disorder, unspecified; F10.10 Alcohol abuse, uncomplicated; I10 Essential (primary) hypertension; F43.10 Post-traumatic stress disorder, unspecified; F17.210 Nicotine dependence, cigarettes, uncomplicated; Z91.19 Patient's noncompliance with other medical treatment and regimen; Z85.46 Personal history of malignant neoplasm of prostate; Z90.79 Acquired absence of other genital organ(s)

== ENCOUNTER 2018-02-14 20:10 | Observation (INO) | payer MEDICAID, OTHER ==
[2018-02-14 20:52] VITALS: BMI 25.8
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
[2018-02-14] MEDS ORDERED: Sodium Chloride 0.9% 1,000 ML IV SCH (21:00)
[2018-02-14 22:48] LABS: HEMOGLOBIN 11.5 g/dL (14.0-18.0); MEAN CELL VOLUME 91.6 fl (80.0-105.0); MEAN CORPUSCULAR HEMOGLOBIN 31.3 pg (25.0-35.0); MEAN CORPUSCULAR HGB CONC 34.1 g/dl (31.0-37.0); MEAN PLATELET VOLUME 9.4 fl (7.0-11.0); RBC 3.68 10^6/uL (3.5-6.1); RED CELL DISTRIBUTION WIDTH 13.9 % (11.5-14.5); WHITE BLOOD COUNT 5.2 10^3/ul (4.5-11.0)
[2018-02-14 22:52] LABS: ALB/GLOB RATIO 1.2 (1.1-1.8); ALT/SGPT 29 U/L (7-56); AST/SGOT 30 U/L (17-59); BLOOD UREA NITROGEN 20 mg/dL (7-21); CALCIUM 8.9 mg/dL (8.4-10.5); GFR NON-AFRICAN AMERICAN > 60
[2018-02-14] MEDS ORDERED: Piperacillin/Tazobact 3.375 gm 100 ML IV STA (23:19)
[2018-02-14] MEDS ORDERED: Vancomycin 1gm in NS 250ml 1 GM/250 ML BAG IVPB STA (23:27)
[2018-02-14] MEDS ORDERED: Multivitamin (MVI) 10 ML, Thiamine 100 MG, Folic Acid 1 MG in Sodium Chloride 0.9% 1,00... IV ONE (23:40)
[2018-02-14] MEDS: Morphine 2 mg/ml ISec IVP STA ×2 (23:43→23:49)
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
[2018-02-15] MEDS ORDERED: Fluticasone Nasal 50 mcg/Spray NS ONE (02:42)
[2018-02-15] MEDS: Oxycodone/Acetaminophen 5/325 mg Tab PO PRN ×2 (03:00→11:23)
[2018-02-15] MEDS ORDERED: Influenza Vaccine 60 mcg/0.5 mL SYR (4YR UP) IM ONE (03:22)
[2018-02-15] MEDS ORDERED: Pneumococcal 23-Valent Vaccine IM ONE (03:22)
[2018-02-15 07:14] LABS: BASO # 0.06 K/mm3 (0.0-2.0); EOS # 0.5 (0.0-0.7); EOS % 8.5 % (1.5-5.0); GRAN # 2.9 (1.4-6.5); GRAN % 48.4 % (50.0-68.0); HEMOGLOBIN 10.6 g/dL (14.0-18.0); LYMPH # 1.8 (1.2-3.4); LYMPH % 30.4 % (22.0-35.0); MEAN CELL VOLUME 93.1 fl (80.0-105.0); MEAN CORPUSCULAR HEMOGLOBIN 30.6 pg (25.0-35.0); MEAN CORPUSCULAR HGB CONC 32.9 g/dl (31.0-37.0); MEAN PLATELET VOLUME 9.1 fl (7.0-11.0); MONO # 0.7 (0.1-0.6); MONO % 11.7 % (1.0-6.0); RBC 3.46 10^6/uL (3.5-6.1); RED CELL DISTRIBUTION WIDTH 14.1 % (11.5-14.5)
[2018-02-15 07:32] VITALS: PULSE 76
[2018-02-15 07:38] LABS: ALB/GLOB RATIO 1.1 (1.1-1.8); ALBUMIN 3.5 g/dL (3.0-4.8); ALT/SGPT 28 U/L (7-56); AST/SGOT 36 U/L (17-59); BLOOD UREA NITROGEN 19 mg/dL (7-21); CALCIUM 8.3 mg/dL (8.4-10.5); GFR NON-AFRICAN AMERICAN > 60
[2018-02-15] MEDS ORDERED: Multivitamin Therapeutic Tab PO SCH (10:00)
[2018-02-15] MEDS ORDERED: Fluticasone Nasal 50 mcg/Spray NS SCH (10:00)
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
--- NOTE | 2018-02-15 12:29 | US ---
HISTORY: Leg pain and swelling. Evaluate for DVT PHYSICIAN(S): Ashish Beard MD. TECHNIQUE: Duplex sonography and color-flow Doppler with graded compression were used to evaluate the deep venous systems of both lower extremities. The exam is somewhat limited by edema. FINDINGS: The visualized deep venous systems of both lower extremities are sonographically normal and compressible. Normal wave forms and augmentation are seen. There is no sonographic evidence for deep venous thrombosis in the visualized segments of both lower extremities. IMPRESSION: No sonographic evidence for deep venous thrombosis in the visualized segments of both lower extremities.
--- NOTE | 2018-02-15 14:53 | CP.PCM.DIS ---
<Roby Mason - Last Filed: 02/15/18 17:41> Provider - Provider Date of Admission: 02/14/18 23:32 Attending physician: Roderick Miller MD Primary care physician: NO FAMILY PROVIDER Time Spent in preparation of Discharge (in minutes): 40 Hospital Course - Lab Results Lab Results: Most Recent Lab Values WBC 6.0 10^3/ul (4.5-11.0) 02/15/18 06:45 RBC 3.46 10^6/uL (3.5-6.1) L 02/15/18 06:45 Hgb 10.6 g/dL (14.0-18.0) L 02/15/18 06:45 Hct 32.2 % (42.0-52.0) L 02/15/18 06:45 MCV 93.1 fl (80.0-105.0) 02/15/18 06:45 MCH 30.6 pg (25.0-35.0) 02/15/18 06:45 MCHC 32.9 g/dl (31.0-37.0) 02/15/18 06:45 RDW 14.1 % (11.5-14.5) 02/15/18 06:45 Plt Count 171 10^3/uL (120.0-450.0) 02/15/18 06:45 MPV 9.1 fl (7.0-11.0) 02/15/18 06:45 Gran % 48.4 % (50.0-68.0) L 02/15/18 06:45 Lymph % (Auto) 30.4 % (22.0-35.0) 02/15/18 06:45 [place] % (Auto) 11.7 % (1.0-6.0) H 02/15/18 06:45 Eos % (Auto) 8.5 % (1.5-5.0) H 02/15/18 06:45 Baso % (Auto) 1.0 % (0.0-3.0) 02/15/18 06:45 Gran # 2.90 (1.4-6.5) 02/15/18 06:45 Lymph # (Auto) 1.8 (1.2-3.4) 02/15/18 06:45 [place] # (Auto) 0.7 (0.1-0.6) H 02/15/18 06:45 Eos # (Auto) 0.5 (0.0-0.7) 02/15/18 06:45 Baso # (Auto) 0.06 K/mm3 (0.0-2.0) 02/15/18 06:45 Sodium 140 mmol/L (132-148) 02/15/18 06:45 Potassium 4.7 mmol/L (3.6-5.0) 02/15/18 06:45 Chloride 109 mmol/L (98-107) H 02/15/18 06:45 Carbon Dioxide 27 mmol/L (21-33) 02/15/18 06:45 Anion Gap 9 (10-20) L 02/15/18 06:45 BUN 19 mg/dL (7-21) 02/15/18 06:45 Creatinine 0.8 mg/dl (0.8-1.5) 02/15/18 06:45 Est GFR ( Amer) > 60 02/15/18 06:45 Est GFR (Non-Af Amer) > 60 02/15/18 06:45 Random Glucose 97 mg/dL (70-110) 02/15/18 06:45 Calcium 8.3 mg/dL (8.4-10.5) L 02/15/18 06:45 Phosphorus 3.5 mg/dL (2.5-4.5) 02/15/18 06:45 Magnesium 2.2 mg/dL (1.7-2.2) 02/15/18 06:45 Total Bilirubin 0.3 mg/dL (0.2-1.3) 02/15/18 06:45 AST 36 U/L (17-59) 02/15/18 06:45 ALT 28 U/L (7-56) 02/15/18 06:45 Alkaline Phosphatase 67 U/L (38-126) 02/15/18 06:45 Total Protein 6.8 g/dL (5.8-8.3) 02/15/18 06:45 Albumin 3.5 g/dL (3.0-4.8) 02/15/18 06:45 Globulin 3.2 gm/dL 02/15/18 06:45 Albumin/Globulin Ratio 1.1 (1.1-1.8) 02/15/18 06:45 Alcohol, Quantitative < 10 mg/dL (0-10) 02/14/18 22:33 - Hospital Course Hospital Course: HPI: Mr. Light is a 62 year old male with past medical history of bipolar disorder, schizophrenia, prostate cancer in remission, alcohol abuse, active smoker, recent deep venous thrombosis and chronic left lower extremity wound presenting for 2 day history of left leg burning pain. Patient was seen in hospital multiple times over the past few months for similar complaints, mostly recently admitted last week for left lower extremity wound. At that time, wound was treated with vancomycin/zosyn, CHRISTIAN was noted to be abnormal at rest, and MRA showed short segments occlusions in the right SF as well as bilateral anterior tibial occlusions and subsequently underwent multifocal left superficial femoral artery jet stream atherectomy with drug eluting balloon angioplasty and stent placement. Patient noted to have multifocal calcified polypoid stenoses in the L proximal to mid superficial femoral artery with a significant pressure gradient. Patient also noted to have deep venous thrombosis. Patient was discharged on 02/12/18 on xarelto and plavix and has appointment with Dr. Beard at the end of the month. He currently admits to pain, swelling, numbness and tingling in the left leg. Denies fevers, headaches, CP, SOB, back pain, urinary complaints, diarrhea, vomiting, recent trauma and recent travel. 12 point ROS noted here, otherwise unremarkable. In the ED, patient was afebrile and blood work was unremarkable. Ultrasound of the extremity was negative for deep venous thro mbosis. Patient was given vancomycin and zosyn in the ED. Hospital Course: Podiatry (Dr. Patton) was consulted and recommended local wound care to the left lower extremity with xeroform, DSD. Patient instructed to follow up in wound care center for continued care of leg ulceration, as well as f/u for wound cultures obtained. ID (Dr. Beltre) consulted for chronic lower extremity wound. The patient exhibits a chronic left leg open ulcer that appears clean with no evidence of infection. Per Dr. Beltre, patient is cleared for discharge from ID perspective with Doxycycline. Patient is stable for discharge home as per Dr. Miller. He was counseled to return to the emergency department if symptoms return or worsen. Patient is to follow up with primary medical doctor within 3-5 days of discharge. Patient is to follow up with podiatry, Dr. Patton, within 3-5 days of discharge. Patient is to follow up with Dr. Beard, interventional radiology, as scheduled on 02/22. He was also counseled on alcohol cessation and smoking cessation. Please continue all home medications as currently prescribed. Script have been provided, if needed. Patient also instructed to take Doxycycline as prescribed: Doxycycline 100 mg PO twice daily for a total of 7 days. Please follow up with wound care center outpatient for local management of wound. No further acute intervention is required at this time. Please also follow up with Dr. Ashish Beard and your primary care provider within 1 week of discharge for continuity of care. Patient understands and agrees with discharge plan. - Date & Time of H&P Date of H&P: 02/15/18 Time of H&P: 09:00 Discharge Exam - Head Exam Head Exam: ATRAUMATIC, NORMAL INSPECTION, NORMOCEPHALIC - Eye Exam Eye Exam: EOMI, Normal appearance, PERRL Pupil Exam: NORMAL ACCOMODATION - Respiratory Exam Respiratory Exam: Clear to PA & Lateral, NORMAL BREATHING PATTERN, UNREMARKABLE - Cardiovascular Exam Cardiovascular Exam: REGULAR RHYTHM, +S1, +S2 - GI/Abdominal Exam GI & Abdominal Exam: Normal Bowel Sounds, Soft, Unremarkable. absent: Distended, Firm, Guarding, Rebound, Rigid, Tenderness - Extremities Exam Extremities exam: full ROM Additional comments: DP/PT palpable, CFT <3 seconds to all digits, TG warm to warm, + 2 pitting edema to bilateral lower extremities L > R. Ortho: Tenderness to palpation of LLE, tenderness upon calf compression to LLE Superficial ulceration noted to LLE at the level of the mid-tibia. Wound bed mixed granular/fibrotic with dried serous drainage present, no probe to bone, no tunneling, no tracking, mild erythema noted periwound - Back Exam Back exam: NORMAL INSPECTION - Neurological Exam Neurological exam: Alert, Normal Gait, Oriented x3, Reflexes Normal - Psychiatric Exam Psychiatric exam: Normal Affect, Normal Mood - Skin Skin Exam: Normal Color Additional comments: Superficial ulceration noted to LLE at the level of the mid-tibia. Wound bed mixed granular/fibrotic with dried serous drainage present, no probe to bone, no tunneling, no tracking, mild erythema noted periwound Discharge Plan - Discharge Medications Prescriptions: amLODIPine [Norvasc] 2.5 mg PO DAILY #30 tab Clopidogrel [Plavix] 75 mg PO DAILY #30 tab Doxycycline Hyclate 100 mg PO BID #14 capsule Escitalopram [Lexapro] 20 mg PO DAILY #30 tab Furosemide [Lasix] 40 mg PO DAILY #30 tab risperiDONE [RisperDAL Tab] 2 mg PO DAILY #30 tab Rivaroxaban [Xarelto] 15 mg PO BID #60 tab - Follow Up Plan Condition: STABLE Disposition: HOME/ ROUTINE Instructions: Cellulitis (DC) Additional Instructions: Please continue all home medications as currently prescribed. Script have been provided, if needed. Patient also instructed to take Doxycycline as prescribed. Doxycycline 100 mg PO twice daily for a total of 7 days. Please follow up with wound care center outpatient for local management of wound. No further acute intervention is required at this time. Please also follow up with Dr. Ashish Beard and your primary care provider within 1 week of discharge for continuity of care. Patient understands and agrees with discharge plan. Referrals: FAMILY PROVIDER,SHERLYN [Primary Care Provider] - Ashish Beard MD [Staff Provider] - <Roderick Miller - Last Filed: 02/15/18 18:58> Provider - Provider Date of Admission: 02/14/18 23:32 Attending physician: Roderick Miller MD Primary care physician: SHERLYN FAMILY PROVIDER Hospital Course - Lab Results Lab Results: Micro Results 02/15/18 13:00 Leg - Left Gram Stain - Final 02/14/18 22:39 Leg - Left Gram Stain - Final Most Recent Lab Values WBC 6.0 10^3/ul (4.5-11.0) 02/15/18 06:45 RBC 3.46 10^6/uL (3.5-6.1) L 02/15/18 06:45 Hgb 10.6 g/dL (14.0-18.0) L 02/15/18 06:45 Hct 32.2 % (42.0-52.0) L 02/15/18 06:45 MCV 93.1 fl (80.0-105.0) 02/15/18 06:45 MCH 30.6 pg (25.0-35.0) 02/15/18 06:45 MCHC 32.9 g/dl (31.0-37.0) 02/15/18 06:45 RDW 14.1 % (11.5-14.5) 02/15/18 06:45 Plt Count 171 10^3/uL (120.0-450.0) 02/15/18 06:45 MPV 9.1 fl (7.0-11.0) 02/15/18 06:45 Gran % 48.4 % (50.0-68.0) L 02/15/18 06:45 Lymph % (Auto) 30.4 % (22.0-35.0) 02/15/18 06:45 [place] % (Auto) 11.7 % (1.0-6.0) H 02/15/18 06:45 Eos % (Auto) 8.5 % (1.5-5.0) H 02/15/18 06:45 Baso % (Auto) 1.0 % (0.0-3.0) 02/15/18 06:45 Gran # 2.90 (1.4-6.5) 02/15/18 06:45 Lymph # (Auto) 1.8 (1.2-3.4) 02/15/18 06:45 [place] # (Auto) 0.7 (0.1-0.6) H 02/15/18 06:45 Eos # (Auto) 0.5 (0.0-0.7) 02/15/18 06:45 Baso # (Auto) 0.06 K/mm3 (0.0-2.0) 02/15/18 06:45 Sodium 140 mmol/L (132-148) 02/15/18 06:45 Potassium 4.7 mmol/L (3.6-5.0) 02/15/18 06:45 Chloride 109 mmol/L (98-107) H 02/15/18 06:45 Carbon Dioxide 27 mmol/L (21-33) 02/15/18 06:45 Anion Gap 9 (10-20) L 02/15/18 06:45 BUN 19 mg/dL (7-21) 02/15/18 06:45 Creatinine 0.8 mg/dl (0.8-1.5) 02/15/18 06:45 Est GFR ( Amer) > 60 02/15/18 06:45 Est GFR (Non-Af Amer) > 60 02/15/18 06:45 Random Glucose 97 mg/dL (70-110) 02/15/18 06:45 Calcium 8.3 mg/dL (8.4-10.5) L 02/15/18 06:45 Phosphorus 3.5 mg/dL (2.5-4.5) 02/15/18 06:45 Magnesium 2.2 mg/dL (1.7-2.2) 02/15/18 06:45 Total Bilirubin 0.3 mg/dL (0.2-1.3) 02/15/18 06:45 AST 36 U/L (17-59) 02/15/18 06:45 ALT 28 U/L (7-56) 02/15/18 06:45 Alkaline Phosphatase 67 U/L (38-126) 02/15/18 06:45 Total Protein 6.8 g/dL (5.8-8.3) 02/15/18 06:45 Albumin 3.5 g/dL (3.0-4.8) 02/15/18 06:45 Globulin 3.2 gm/dL 02/15/18 06:45 Albumin/Globulin Ratio 1.1 (1.1-1.8) 02/15/18 06:45 Alcohol, Quantitative < 10 mg/dL (0-10) 02/14/18 22:33 Attending/Attestation - Attestation I have personally seen and examined this patient.: Yes I have fully participated in the care of the patient.: Yes I have reviewed all pertinent clinical information, including history, physical exam and plan: Yes Notes (Text): 02/15/18 18:53 62 year old male with past medical history of alcohol abuse, chronic left leg wound and recently diagnosed DVT who presented with left leg pain. He was recently discharged few days prior after having drug eluting balloon angioplasty and stent placement as above. He is on xarelto and plavix. He was started on antibiotics. LE dopplers were negative. He was seen by ID who recommended doxycycline and podiatry who recommended outpatient wound care follow up. Patient is discharged home to follow up with his pmd. Follow up with wound care clinic. Follow up with IR. Continue with antibiotics. Counselled on alcohol abstinence. Roderick Miller MD Hospitalist.
[2018-02-15 15:10] VITALS: BP 105/56; RESP 18; TEMP 97.1; O2SAT 100
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
== END 2018-02-15 17:25 | disposition home or self-care (01) ==
LOC: ED 20:10 → ERH 23:32 → 5RSO 02-15 02:28
PROVIDERS: ADMIT Internal Medicine; ATTEND Internal Medicine
DX: L03.116 Cellulitis of left lower limb (principal); L97.929 Non-pressure chronic ulcer of unspecified part of left lower leg with unspecified severity; I10 Essential (primary) hypertension; I87.8 Other specified disorders of veins; F17.200 Nicotine dependence, unspecified, uncomplicated; F41.9 Anxiety disorder, unspecified; F20.9 Schizophrenia, unspecified; F31.9 Bipolar disorder, unspecified; Z85.46 Personal history of malignant neoplasm of prostate; Z86.718 Personal history of other venous thrombosis and embolism; Z79.02 Long term (current) use of antithrombotics/antiplatelets; Z79.01 Long term (current) use of anticoagulants
CPT/HCPCS: 36415; 80053; 80320; 83735; 84100; 85025; 85027; 87040; 87070; 93970; 96374; 96375; 99285; G0378; J2543; J3411; J7030

== ENCOUNTER 2018-02-16 18:15 | Emergency (ER) | payer MEDICAID ==
[2018-02-16 18:17] VITALS: BMI 25.8
[2018-02-16 18:36] VITALS: PULSE 86; RESP 18
[2018-02-16] MEDS ORDERED: Oxycodone/Acetaminophen 5/325 mg Tab PO STA (19:15)
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
[2018-02-16 20:30] VITALS: BP 110/58; TEMP 97.9; O2SAT 100
== END 2018-02-16 20:29 | disposition home or self-care (01) ==
LOC: ED 18:15
DX: L97.929 Non-pressure chronic ulcer of unspecified part of left lower leg with unspecified severity (principal)

== ENCOUNTER 2018-02-17 18:40 | Emergency (ER) | payer MEDICAID ==
[2018-02-17 19:17] VITALS: BMI 26.6
[2018-02-17 19:22] VITALS: RESP 18; TEMP 98.1
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
[2018-02-17 23:52] VITALS: BP 127/70; PULSE 81; O2SAT 99
== END 2018-02-17 21:15 | disposition home or self-care (01) ==
LOC: ED 18:40
DX: L97.829 Non-pressure chronic ulcer of other part of left lower leg with unspecified severity (principal)

== ENCOUNTER 2018-02-18 04:17 | Emergency (ER) | payer MEDICAID ==
[2018-02-18 04:45] VITALS: BMI 28.1
[2018-02-18 04:50] VITALS: RESP 18; TEMP 98.5; O2SAT 99
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
[2018-02-18 06:57] VITALS: BP 110/62; PULSE 61
--- NOTE | 2018-02-18 11:06 | US ---
Date of service: 02/18/2018 HISTORY: pain TECHNIQUE: Realtime sonography through the scrotum with color and doppler flow. COMPARISON: None Available. FINDINGS: RIGHT TESTICLE: Measures 4.3 x 1.7 x 3.0 cm. Homogeneous echotexture. No mass. Normal flow. RIGHT EPIDIDYMIS: Normal size, morphology and vascularity. LEFT TESTICLE: Measures 4.1 x 1.7 x 3.3 cm. Homogeneous echotexture. No mass. Normal flow. LEFT EPIDIDYMIS: Normal size, morphology and vascularity. HYDROCELE: Minimal bilateral hydrocele VARICOCELE: None. OTHER FINDINGS: None. IMPRESSION: Minimal bilateral hydrocele. No evidence of testicular torsion. No evidence of epididymo-orchitis. Otherwise unremarkable examination. The preliminary findings for this examination were reported by [facility] at 5:53 a.m. on 02/18/2018. There is concurrence of this report with the preliminary findings.
== END 2018-02-18 06:54 | disposition home or self-care (01) ==
LOC: ED 04:17
DX: N43.3 Hydrocele, unspecified (principal); L97.829 Non-pressure chronic ulcer of other part of left lower leg with unspecified severity; T14.8XXA Other injury of unspecified body region, initial encounter; X58.XXXA Exposure to other specified factors, initial encounter; Y92.9 Unspecified place or not applicable

== ENCOUNTER 2018-02-22 09:11 | Emergency (ER) | payer MEDICAID ==
[2018-02-22 09:11] VITALS: BMI 28.1
[2018-02-22 09:26] VITALS: BP 147/85; PULSE 79; RESP 18; TEMP 97.9; O2SAT 98
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
== END 2018-02-22 10:10 | disposition home or self-care (01) ==
LOC: ED 09:11
DX: S80.922A Unspecified superficial injury of left lower leg, initial encounter (principal); X58.XXXA Exposure to other specified factors, initial encounter; Y92.9 Unspecified place or not applicable

== ENCOUNTER 2018-02-22 18:15 | Emergency (ER) | payer MEDICAID ==
[2018-02-22 18:15] VITALS: BMI 31.0
[2018-02-22 18:39] VITALS: RESP 18; O2SAT 96
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
[2018-02-22 22:26] VITALS: BP 137/86; PULSE 81; TEMP 98
--- NOTE | 2018-02-23 09:18 | RAD ---
Date of service: 02/22/2018 HISTORY: Cough. COMPARISON: 02/04/2018. TECHNIQUE: Chest PA and lateral FINDINGS: LUNGS: Right lower lobe infiltrate likely pneumonia. This represents a new finding compared to the prior study. PLEURA: No significant pleural effusion identified. No pneumothorax apparent. CARDIOVASCULAR: No aortic atherosclerotic calcification present. Normal cardiac size. No pulmonary vascular congestion. OSSEOUS STRUCTURES: No significant abnormalities. VISUALIZED UPPER ABDOMEN: Normal. OTHER FINDINGS: None. IMPRESSION: Right lower lobe infiltrate a new finding compared to the prior study.
== END 2018-02-22 22:26 | disposition home or self-care (01) ==
LOC: ED 18:15
DX: M79.605 Pain in left leg (principal); R05 Cough; I10 Essential (primary) hypertension; F17.210 Nicotine dependence, cigarettes, uncomplicated

== ENCOUNTER 2018-02-23 21:20 | Emergency (ER) | payer MEDICAID ==
[2018-02-23 21:20] VITALS: BMI 31.0
== END 2018-02-23 21:59 | disposition left against medical advice (07) ==
LOC: ED 21:20
DX: Z02.89 Encounter for other administrative examinations (principal)

== ENCOUNTER 2018-02-23 23:25 | Emergency (ER) | payer MEDICAID ==
[2018-02-23 23:26] VITALS: BMI 31.0
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
[2018-02-24 02:07] VITALS: BP 143/73; PULSE 70; RESP 18; TEMP 98.3; O2SAT 100
[2018-02-24] MEDS ORDERED: Oxycodone/Acetaminophen 5/325 mg Tab PO STA (02:09)
== END 2018-02-24 06:18 | disposition home or self-care (01) ==
LOC: ED 23:25
DX: M79.605 Pain in left leg (principal); G89.29 Other chronic pain

== ENCOUNTER 2018-02-27 14:26 | Inpatient (IN) | payer MEDICAID ==
[2018-02-27 14:26] VITALS: BMI 31.0
[2018-02-27] MEDS ORDERED: cefTRIAXone 1 gm 1 GM/100 ML BAG IVPB STA (16:52)
[2018-02-27] MEDS ORDERED: Azithromycin 500MG/NS 250ml 500 MG/250 ML BAG IVPB STA (16:52)
--- NOTE | 2018-02-27 17:29 | RAD ---
Date of service: 02/27/2018 HISTORY: cough COMPARISON: 02/22/2018 FINDINGS: LUNGS: No active pulmonary disease. PLEURA: Slight increase in patchy infiltrate right lower lobe CARDIOVASCULAR: No aortic atherosclerotic calcification present. Normal cardiac size. No pulmonary vascular congestion. OSSEOUS STRUCTURES: No significant abnormalities. VISUALIZED UPPER ABDOMEN: Normal. OTHER FINDINGS: None. IMPRESSION: Slight increase in patchy infiltrate right lower lobe
[2018-02-27 17:40] LABS: BASO # 0.05 K/mm3 (0.0-2.0); BASO % 0.8 % (0.0-3.0); EOS # 0.5 (0.0-0.7); EOS % 7.6 % (1.5-5.0); GRAN # 3.51 (1.4-6.5); GRAN % 53.1 % (50.0-68.0); HEMOGLOBIN 12.2 g/dL (14.0-18.0); LYMPH # 1.9 (1.2-3.4); LYMPH % 28.5 % (22.0-35.0); MEAN CELL VOLUME 91.5 fl (80.0-105.0); MEAN CORPUSCULAR HEMOGLOBIN 30.5 pg (25.0-35.0); MEAN CORPUSCULAR HGB CONC 33.3 g/dl (31.0-37.0); MEAN PLATELET VOLUME 8.5 fl (7.0-11.0); MONO # 0.7 (0.1-0.6); RED CELL DISTRIBUTION WIDTH 14.1 % (11.5-14.5); WHITE BLOOD COUNT 6.6 10^3/uL (4.5-11.0)
[2018-02-27 18:48] LABS: ALB/GLOB RATIO 1.2 (1.1-1.8); ALBUMIN 4.2 g/dL (3.0-4.8); ALT/SGPT 29 U/L (7-56); AST/SGOT 35 U/L (17-59); BLOOD UREA NITROGEN 20 mg/dL (7-21); GFR NON-AFRICAN AMERICAN > 60
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
[2018-02-27] MEDS ORDERED: Albuterol-Ipratrop 3 mg / 0.5 (3 ml) UD IH PRN (20:12)
[2018-02-27] MEDS ORDERED: Iohexol 350 MG/100 ML VIAL ONE (20:18)
[2018-02-27] MEDS ORDERED: Multivitamin (MVI) 10 ML, Thiamine 100 MG, Folic Acid 1 MG in Sodium Chloride 0.9% 1,00... IV ONE (20:21)
[2018-02-27] MEDS: Piperacillin/Tazobact 3.375 gm 100 ML IVPB SCH (22:39)
[2018-02-27] MEDS: Vancomycin 500mg in NS 500 MG/100 ML BAG IVPB SCH (23:52)
[2018-02-28 05:16] LABS: BARBITURATES, UR NEGATIVE (NEGATIVE); BENZODIAZEPINES, UR NEGATIVE (NEGATIVE); OPIATES, UR NEGATIVE (NEGATIVE); PHENCYCLIDINE, UR NEGATIVE (NEGATIVE)
[2018-02-28] MEDS: Piperacillin/Tazobact 3.375 gm 100 ML IVPB SCH (06:44)
[2018-02-28 07:33] LABS: BASO # 0.04 K/mm3 (0.0-2.0); BASO % 0.8 % (0.0-3.0); EOS # 0.4 (0.0-0.7); EOS % 7.2 % (1.5-5.0); GRAN # 2.99 (1.4-6.5); GRAN % 56.5 % (50.0-68.0); HEMOGLOBIN 11.5 g/dL (14.0-18.0); LYMPH # 1.4 (1.2-3.4); LYMPH % 25.7 % (22.0-35.0); MEAN CELL VOLUME 90.4 fl (80.0-105.0); MEAN CORPUSCULAR HEMOGLOBIN 29.9 pg (25.0-35.0); MEAN PLATELET VOLUME 8.6 fl (7.0-11.0); MONO # 0.5 (0.1-0.6); MONO % 9.8 % (1.0-6.0); RBC 3.85 10^6/uL (3.5-6.1); RED CELL DISTRIBUTION WIDTH 14.1 % (11.5-14.5); WHITE BLOOD COUNT 5.3 10^3/uL (4.5-11.0)
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
[2018-02-28] MEDS: Vancomycin 500mg in NS 500 MG/100 ML BAG IVPB SCH ×2 (09:36→21:29)
[2018-02-28 09:50] LABS: ALB/GLOB RATIO 1.1 (1.1-1.8); ALBUMIN 3.7 g/dL (3.0-4.8); ALT/SGPT 28 U/L (7-56); AST/SGOT 32 U/L (17-59); BLOOD UREA NITROGEN 16 mg/dL (7-21); CALCIUM 8.7 mg/dL (8.4-10.5); GFR NON-AFRICAN AMERICAN > 60
--- NOTE | 2018-02-28 10:14 | CT ---
Date of service: 02/27/2018 PROCEDURE: CT Chest with contrast HISTORY: r/ pna COMPARISON: None available. TECHNIQUE: Contiguous axial images were obtained through the chest with intravenous contrast enhancement. Sagittal and coronal reconstructions were performed. IV contrast: 100 cc of Omni 350 Radiation dose: Total exam DLP = 633.1 mGy-cm. This CT exam was performed using one or more of the following dose reduction techniques: Automated exposure control, adjustment of the mA and/or kV according to patient size, and/or use of iterative reconstruction technique. FINDINGS: LUNGS: Minimal linear infiltrate in the lingular segment. This could represent scarring. Developing pneumonia possible MEDIASTINUM: Unremarkable thoracic aorta. No aneurysm or dissection. Normal sized heart. Main pulmonary artery unremarkable. No vascular congestion. No lymphadenopathy. Aortic calcification and coronary artery calcification PLEURA: No pleural fluid. No pneumothorax. BONES: No fracture. No destructive lesion. UPPER ABDOMEN: Grossly unremarkable. OTHER FINDINGS: The report concurs with the preliminary [facility] report IMPRESSION: Minimal linear infiltrate in the lingular segment. This could represent scarring. Developing pneumonia possible
[2018-02-28] MEDS: Benzocaine/Menthol (Cepacol) Lozenge MT PRN ×2 (14:11→18:25)
--- NOTE | 2018-02-28 16:02 | CP.PCM.PN ---
<Eleonora Bar - Last Filed: 02/28/18 16:14> Subjective - Date & Time of Evaluation Date of Evaluation: 02/28/18 Time of Evaluation: 16:01 - Subjective Subjective: Eleonora Bar PGY1 Medicine Progress Note for Dr. Olvera Patient seen and examined at bedside this morning. No acute events reported overnight. Patient admits to pain in his LLE that is unchanged from yesterday. Wound was rewrapped at bedside. Denies CP, SOB, fevers, chills, nausea, vomiting, urinary complaints, numbness, and tingling. Possible discharge tomorr ow. Objective - Vital Signs/Intake and Output Vital Signs (last 24 hours): Temp Pulse Resp BP Pulse Ox 97.8 F 78 20 132/74 97 02/28/18 14:00 02/28/18 14:00 02/28/18 14:00 02/28/18 14:00 02/28/18 14:00 - Medications Medications: Current Medications Albuterol/Ipratropium (Duoneb 3 Mg/0.5 Mg (3 Ml) Ud) 3 ml IH Q2H PRN PRN Reason: Shortness of Breath Amlodipine Besylate (Norvasc) 2.5 mg PO DAILY [facility] Last Admin: 02/28/18 09:38 Dose: 2.5 mg Benzocaine/Menthol (Cepacol Sore Throat) 1 jay MT TID PRN PRN Reason: Sore Throat Last Admin: 02/28/18 14:11 Dose: 1 jay Benzonatate (Tessalon Perles) 100 mg PO TID PRN PRN Reason: Cough Clopidogrel Bisulfate (Plavix) 75 mg PO DAILY [facility] Last Admin: 02/28/18 09:36 Dose: 75 mg Escitalopram Oxalate (Lexapro) 20 mg PO DAILY [facility] Last Admin: 02/28/18 09:37 Dose: 20 mg Famotidine (Pepcid) 20 mg PO Q12 [facility] Last Admin: 02/28/18 09:37 Dose: 20 mg Vancomycin HCl (Vancomycin 500mg In Ns) 500 mg in 100 mls @ 200 mls/hr IVPB 0900,2100 [facility]; Protocol Last Admin: 02/28/18 09:36 Dose: 200 mls/hr Ketorolac Tromethamine (Toradol) 15 mg IM Q8 [facility] Stop: 03/04/18 20:23 Last Admin: 02/28/18 14:01 Dose: 15 mg Risperidone (Risperdal Tab) 2 mg PO DAILY [facility]; Protocol Last Admin: 02/28/18 09:36 Dose: 2 mg Rivaroxaban (Xarelto) 15 mg PO Q12 [facility]; Protocol Last Admin: 02/28/18 09:36 Dose: 15 mg - Labs Labs: 02/28/18 07:00 02/28/18 07:00 - Constitutional Appears: No Acute Distress - Head Exam Head Exam: ATRAUMATIC, NORMAL INSPECTION - Eye Exam Eye Exam: EOMI Pupil Exam: PERRL - ENT Exam ENT Exam: Mucous Membranes Moist - Respiratory Exam Respiratory Exam: Clear to Ausculation Bilateral. absent: Wheezes, Respiratory Distress - Cardiovascular Exam Cardiovascular Exam: REGULAR RHYTHM, +S1, +S2 - GI/Abdominal Exam GI & Abdominal Exam: Soft, Normal Bowel Sounds. absent: Guarding, Rigid - Extremities Exam Extremities Exam: Normal Capillary Refill. absent: Calf Tenderness Additional comments: B/L leg swelling appreciated, left worse than right. Pulses are +2 B/L in dorsalis pedis. Left anterior lower leg has wound measuring 5cm x 2 cm that is non bleeding with no pus appreciated. Granulation tissue appreciated. - Neurological Exam Neurological Exam: Alert, Oriented x3 - Skin Skin Exam: Normal Color, Warm Assessment and Plan - Assessment and Plan (Free Text) Assessment: This is a 62 year old male with PMH of schizophrenia, bipolar disorder, prostate cancer that is in remission, active smoker, alcohol abuse, DVT and chronic LLE wound presenting to hospital for management of chronic lower left leg wound and pneumonia. Plan: Pneumonia: -CXR shows RLL infiltrate -Chest CT shows minimal linear infiltrate which could represent scarring. Developing pneumonia possible -today patient is afebrile with normal WBC -procalc is <0.05 -continue vancomycin -legionella is negative -sputum culture is pending -ID on consult, Dr. Giraldo -continue duonebs, cepacol Chronic LLE wound : -wound culture pending -Podiatry on consult, Dr. Patton -per podiatry, discussed potential OR debridement due to hypergranular nature of wound base -wound care dressing changed today -wound cultures from 02/15 revealed sensitivity to vancomycin -toradol for pain History of hypertension: -currently controlled -continue norvasc 2.5mg daily History of DVT: -continue xarelto, plavix History of bipolar disorder, schizophrenia: -continue home medications risperidone and lexapro History of alcohol abuse: -received banana bag with folate and B12 -UDS and alcohol levels are unremarkable Patient seen and case discussed with attending, Dr. Olvera <Sabiha Olvera - Last Filed: 02/28/18 17:34> Objective - Vital Signs/Intake and Output Vital Signs (last 24 hours): Temp Pulse Resp BP Pulse Ox 97.8 F 78 20 132/74 97 02/28/18 14:00 02/28/18 14:00 02/28/18 14:00 02/28/18 14:00 02/28/18 14:00 - Medications Medications: Current Medications Albuterol/Ipratropium (Duoneb 3 Mg/0.5 Mg (3 Ml) Ud) 3 ml IH Q2H PRN PRN Reason: Shortness of Breath Amlodipine Besylate (Norvasc) 2.5 mg PO DAILY [facility] Last Admin: 02/28/18 09:38 Dose: 2.5 mg Benzocaine/Menthol (Cepacol Sore Throat) 1 jay MT TID PRN PRN Reason: Sore Throat Last Admin: 02/28/18 14:11 Dose: 1 jay Benzonatate (Tessalon Perles) 100 mg PO TID PRN PRN Reason: Cough Clopidogrel Bisulfate (Plavix) 75 mg PO DAILY [facility] Last Admin: 02/28/18 09:36 Dose: 75 mg Escitalopram Oxalate (Lexapro) 20 mg PO DAILY [facility] Last Admin: 02/28/18 09:37 Dose: 20 mg Famotidine (Pepcid) 20 mg PO Q12 [facility] Last Admin: 02/28/18 09:37 Dose: 20 mg Folic Acid (Folic Acid) 1 mg PO DAILY [facility] Vancomycin HCl (Vancomycin 500mg In Ns) 500 mg in 100 mls @ 200 mls/hr IVPB 0900,2100 [facility]; Protocol Last Admin: 02/28/18 09:36 Dose: 200 mls/hr Multivitamins (Thera Tab) 1 tab PO 0800 [facility] Risperidone (Risperdal Tab) 2 mg PO DAILY [facility]; Protocol Last Admin: 02/28/18 09:36 Dose: 2 mg Rivaroxaban (Xarelto) 20 mg PO DAILY [facility]; Protocol Thiamine HCl (Vitamin B1 Tab) 100 mg PO DAILY [facility] Tramadol HCl (Ultram) 25 mg PO TID PRN PRN Reason: Pain, severe (8-10) - Labs Labs: 02/28/18 07:00 02/28/18 07:00 Attending/Attestation - Attestation I have personally seen and examined this patient.: Yes I have fully participated in the care of the patient.: Yes I have reviewed all pertinent clinical information, including history, physical exam and plan: Yes Notes (Text): Patient seen and examined by me with resident at 2:10PM with resident 02/28/18. Case including HPI, physical exam, and assessment and plan discussed with resident. Agree with above with following additions/corrections. Patient is 62-year-old male with past medical history significant for bipolar disorder, schizophrenia, prostate cancer in remission, alcohol abuse, tobacco abuse, left lower extremity DVT, and chronic left lower extremity wound that presented to the emergency room for pain medication of left leg pain. Patient states he is feeling okay. Patient complains of chronic left lower extremity pain. Patient also complains of a slight cough. He denies any chest pain or shortness of breath. No palpitations. No fevers or chills. No nausea, vomiting, abdominal pain. No dysuria. No diarrhea or constipation. Physical exam: General: Awake and alert lying in bed in no acute distress HEENT: Normocephalic, atraumatic. Extraocular muscles intact, pupils equal and reactive, no scleral icterus. Oropharynx is pink and moist. Neck is supple. Cardiovascular: Regular rhythm. Normal S1 and S2. No murmurs, rubs, or gallops appreciated Pulmonary: Normal respiratory effort. No rhonchi, rales, or wheezing appreciated. Gastrointestinal: Soft, nondistended. Nontender. Positive bowel sounds all 4 quadrants. No guarding. Musculoskeletal: Moves all extremities. Bilateral lower extremity chronic james a. Left lower extremity calf tenderness. Central nervous system: AAO x3, CN 2-12 grossly intact. Dermatologic: Skin warm and dry. Positive chronic healing wound on left anterior lin. Assessment and plan: Patient is 62-year-old male with past medical history significant for bipolar disorder, schizophrenia, prostate cancer in remission, alcohol abuse, tobacco abuse, left lower extremity DVT, and chronic left lower extremity wound that presented to the emergency room for pain medication of left leg pain. 1. Lower extremity pain secondary to chronic left leg wound. Podiatry following, recommendations appreciated. Follow-up lower extremity MRI results. Patient for possible OR debridement. Continue with pain management. Wound culture pending. Blood cultures negative 24 hours. Continue vancomycin. ID following, recommendations appreciated. 2. Possible healthcare associated pneumonia. Chest x-ray per radiologist showed slight increase in patchy infiltrate right lower lobe. Chest CT per radiologist showed minimal linear infiltrate in the lingula or segment, this could represent scarring, developing pneumonia possible. Patient with cough. No leukocytosis. Afebrile. ID following, recommendations appreciated. Urine for Legionella negative. Pro-calcitonin less than 0.05. Continue vancomycin for now. 3. History of DVT. Continue Xarelto 4. Hypertension. Continue Norvasc 2.5mg daily. 5. Bipolar disorder. Schizophrenia. Continue risperidone and lexapro. 6. History of ETOH abuse. Continue with thiamine, folic acid, multivitamin. 7. GI/DVT prophylaxis. Pepcid and Xarelto. Case was discussed in detail with the patient regarding current diagnosis and treatment plan. All questions answered.
[2018-02-28] MEDS ORDERED: Gadodiamide 287 MG/ML VIAL (15ML) IV ONE (16:51)
[2018-02-28] MEDS ORDERED: cefTRIAXone 1 gm 1 GM/100 ML BAG IVPB SCH (17:00)
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
[2018-03-01] MEDS: Benzocaine/Menthol (Cepacol) Lozenge MT PRN ×2 (05:30→23:33)
--- NOTE | 2018-03-01 10:08 | CP.PCM.PN ---
<Brandan Fraser - Last Filed: 03/02/18 08:04> Subjective - Date & Time of Evaluation Date of Evaluation: 03/01/18 Time of Evaluation: 10:06 - Subjective Subjective: Podiatry progress note for Dr. Savage: 62 yo male seen and evaluated at bedside with Dr. Savage resting comfortably. Dressing is intact. States he does not walk around often as instructed by Dr. Savage. Denies any pain to his wound site. Denies N/V/F/C and states shortness of breath and cough have improved. Has no other acute complaints. Objective - Vital Signs/Intake and Output Vital Signs (last 24 hours): Temp Pulse Resp BP Pulse Ox 97.1 F L 68 20 145/86 98 03/01/18 06:00 03/01/18 06:00 03/01/18 06:00 03/01/18 06:00 03/01/18 06:00 Intake and Output: 03/01/18 03/01/18 06:59 18:59 Intake Total 920 Output Total 700 Balance 220 - Medications Medications: Current Medications Albuterol/Ipratropium (Duoneb 3 Mg/0.5 Mg (3 Ml) Ud) 3 ml IH Q2H PRN PRN Reason: Shortness of Breath Amlodipine Besylate (Norvasc) 2.5 mg PO DAILY [facility] Last Admin: 02/28/18 09:38 Dose: 2.5 mg Benzocaine/Menthol (Cepacol Sore Throat) 1 jay MT TID PRN PRN Reason: Sore Throat Last Admin: 03/01/18 05:30 Dose: 1 jay Benzonatate (Tessalon Perles) 100 mg PO TID PRN PRN Reason: Cough Clopidogrel Bisulfate (Plavix) 75 mg PO DAILY [facility] Last Admin: 02/28/18 09:36 Dose: 75 mg Escitalopram Oxalate (Lexapro) 20 mg PO DAILY [facility] Last Admin: 02/28/18 09:37 Dose: 20 mg Famotidine (Pepcid) 20 mg PO Q12 [facility] Last Admin: 02/28/18 21:29 Dose: 20 mg Folic Acid (Folic Acid) 1 mg PO DAILY [facility] Vancomycin HCl (Vancomycin 500mg In Ns) 500 mg in 100 mls @ 200 mls/hr IVPB 0900,2100 [facility]; Protocol Last Admin: 02/28/18 21:29 Dose: 200 mls/hr Multivitamins (Thera Tab) 1 tab PO 0800 [facility] Risperidone (Risperdal Tab) 2 mg PO DAILY [facility]; Protocol Last Admin: 02/28/18 09:36 Dose: 2 mg Rivaroxaban (Xarelto) 20 mg PO DAILY [facility]; Protocol Thiamine HCl (Vitamin B1 Tab) 100 mg PO DAILY [facility] Tramadol HCl (Ultram) 25 mg PO TID PRN PRN Reason: Pain, severe (8-10) Last Admin: 03/01/18 03:57 Dose: 25 mg - Labs Labs: 02/28/18 07:00 02/28/18 07:00 - Constitutional Appears: Well, Non-toxic, No Acute Distress - Head Exam Head Exam: ATRAUMATIC, NORMOCEPHALIC - Extremities Exam Additional comments: B/l LE exam: Vascular: DP/PT palpable, CFT <3 seconds to all digits, TG warm to warm, + 2 pitting edema to bilateral lower extremities L > R. Ortho: Tenderness to palpation of LLE, tenderness upon calf compression to LLE Neuro: unable to assess Derm: Superficial ulceration noted to LLE at the level of the mid-tibia. Hypergranular tissue noted at wound base. Wound bed mixed granular/fibrotic with dried serous drainage present, no probe to bone, no tunneling, no tracking, mild erythema noted periwound - Neurological Exam Neurological Exam: Alert, Awake, Oriented x3 - Psychiatric Exam Psychiatric exam: Normal Affect, Normal Mood Assessment and Plan - Assessment and Plan (Free Text) Assessment: 62 y/o male patient seen and evaluated for left leg pain, swelling, and chronic ulceration. Plan: Patient seen and evaluated at bedside with Dr. Savage Charts and labs reviewed: VSS, afebrile and absent leukocytosis Wound cleansed with sterile saline and dressed with adaptic, maxor, and DSD His wound is stable from podiatry standpoint, will follow up in wound clinic at [facility] within one week of discharge; possible procedure to be performed on outpatient basis Instructed patient to nonweightbear to his left lower extremity as much as possible for benefit of healing progression, patient stated understanding Will continue to follow while in house <Antonio Savage - Last Filed: 03/02/18 13:32> Objective - Vital Signs/Intake and Output Vital Signs (last 24 hours): Temp Pulse Resp BP Pulse Ox 97.7 F 83 16 140/88 95 03/02/18 06:00 03/02/18 06:00 03/02/18 06:00 03/02/18 09:01 03/02/18 06:00 Intake and Output: 03/02/18 03/02/18 06:59 18:59 Intake Total 1420 Output Total 1320 Balance 100 - Medications Medications: Current Medications Albuterol/Ipratropium (Duoneb 3 Mg/0.5 Mg (3 Ml) Ud) 3 ml IH Q2H PRN PRN Reason: Shortness of Breath Amlodipine Besylate (Norvasc) 2.5 mg PO DAILY [facility] Last Admin: 03/02/18 09:01 Dose: 2.5 mg Benzocaine/Menthol (Cepacol Sore Throat) 1 jay MT TID PRN PRN Reason: Sore Throat Last Admin: 03/01/18 23:33 Dose: 1 jay Clopidogrel Bisulfate (Plavix) 75 mg PO DAILY [facility] Last Admin: 03/02/18 09:00 Dose: 75 mg Escitalopram Oxalate (Lexapro) 20 mg PO DAILY [facility] Last Admin: 03/02/18 09:00 Dose: 20 mg Famotidine (Pepcid) 20 mg PO Q12 [facility] Last Admin: 03/02/18 09:00 Dose: 20 mg Folic Acid (Folic Acid) 1 mg PO DAILY [facility] Last Admin: 03/02/18 09:00 Dose: 1 mg Guaifenesin (Robitussin) 200 mg PO Q4H PRN PRN Reason: Cough and congestion Vancomycin HCl (Vancomycin 500mg In Ns) 500 mg in 100 mls @ 200 mls/hr IVPB 0900,2100 [facility]; Protocol Last Admin: 03/02/18 08:56 Dose: 200 mls/hr Cefepime HCl (Maxipime 1gm) 1 gm in 100 mls @ 100 mls/hr IVPB Q8 [facility]; Protocol Last Admin: 03/02/18 10:13 Dose: 100 mls/hr Multivitamins (Thera Tab) 1 tab PO 0800 [facility] Last Admin: 03/02/18 08:27 Dose: 1 tab Risperidone (Risperdal Tab) 2 mg PO DAILY [facility]; Protocol Last Admin: 03/02/18 09:00 Dose: 2 mg Rivaroxaban (Xarelto) 20 mg PO DAILY [facility]; Protocol Last Admin: 03/02/18 09:01 Dose: 20 mg Thiamine HCl (Vitamin B1 Tab) 100 mg PO DAILY [facility] Last Admin: 03/02/18 09:02 Dose: 100 mg Tramadol HCl (Ultram) 25 mg PO TID PRN PRN Reason: Pain, severe (8-10) Last Admin: 03/02/18 08:27 Dose: 25 mg - Labs Labs: 03/02/18 09:00 03/02/18 09:00 Attending/Attestation - Attestation I have personally seen and examined this patient.: Yes I have fully participated in the care of the patient.: Yes I have reviewed all pertinent clinical information, including history, physical exam and plan: Yes
--- NOTE | 2018-03-01 10:10 | CP.PCM.PN ---
Subjective - Date & Time of Evaluation Date of Evaluation: 03/01/18 Time of Evaluation: 10:09 Objective - Vital Signs/Intake and Output Vital Signs (last 24 hours): Temp Pulse Resp BP Pulse Ox 97.1 F L 68 20 145/86 98 03/01/18 06:00 03/01/18 06:00 03/01/18 06:00 03/01/18 06:00 03/01/18 06:00 Intake and Output: 03/01/18 03/01/18 06:59 18:59 Intake Total 920 Output Total 700 Balance 220 - Medications Medications: Current Medications Albuterol/Ipratropium (Duoneb 3 Mg/0.5 Mg (3 Ml) Ud) 3 ml IH Q2H PRN PRN Reason: Shortness of Breath Amlodipine Besylate (Norvasc) 2.5 mg PO DAILY [facility] Last Admin: 02/28/18 09:38 Dose: 2.5 mg Benzocaine/Menthol (Cepacol Sore Throat) 1 jay MT TID PRN PRN Reason: Sore Throat Last Admin: 03/01/18 05:30 Dose: 1 jay Benzonatate (Tessalon Perles) 100 mg PO TID PRN PRN Reason: Cough Clopidogrel Bisulfate (Plavix) 75 mg PO DAILY [facility] Last Admin: 02/28/18 09:36 Dose: 75 mg Escitalopram Oxalate (Lexapro) 20 mg PO DAILY [facility] Last Admin: 02/28/18 09:37 Dose: 20 mg Famotidine (Pepcid) 20 mg PO Q12 [facility] Last Admin: 02/28/18 21:29 Dose: 20 mg Folic Acid (Folic Acid) 1 mg PO DAILY [facility] Vancomycin HCl (Vancomycin 500mg In Ns) 500 mg in 100 mls @ 200 mls/hr IVPB 0900,2100 [facility]; Protocol Last Admin: 02/28/18 21:29 Dose: 200 mls/hr Multivitamins (Thera Tab) 1 tab PO 0800 [facility] Risperidone (Risperdal Tab) 2 mg PO DAILY [facility]; Protocol Last Admin: 02/28/18 09:36 Dose: 2 mg Rivaroxaban (Xarelto) 20 mg PO DAILY [facility]; Protocol Thiamine HCl (Vitamin B1 Tab) 100 mg PO DAILY [facility] Tramadol HCl (Ultram) 25 mg PO TID PRN PRN Reason: Pain, severe (8-10) Last Admin: 03/01/18 03:57 Dose: 25 mg - Labs Labs: 02/28/18 07:00 02/28/18 07:00 - Constitutional Appears: Well, Non-toxic, No Acute Distress - Head Exam Head Exam: ATRAUMATIC, NORMOCEPHALIC - Extremities Exam Additional comments: Right lower extremity focused exam: Vasc: DP/PT pulses palpable 2/4. Temperature gradient warm to cool. CFT < 3 sec to all digits x4. No pedal edema noted Derm: Surgical site along former location of first metatarsal approx 5cm in length with sutures intact, no signs of dehiscence noted, skin edges well- coapted. No drainage, no bari-incision erythema, no malodor. Plantar forefoot circular ulceration approx 1.5cm in diameter and 0.2cm in depth with beefy gr anular wound base noted, no active drainage or purulence expressed, no malodor. Neuro: protective sensation grossly intact Ortho: No tenderness to palpation of surgical site or plantar forefoot ulcer ation - Neurological Exam Neurological Exam: Alert, Awake, Oriented x3 - Psychiatric Exam Psychiatric exam: Normal Affect, Normal Mood Assessment and Plan - Assessment and Plan (Free Text) Assessment: 62 y/o male who is POD 4 s/p right foot 1st metatarsal resection and debridement of plantar forefoot ulceration
--- NOTE | 2018-03-01 11:28 | MRI ---
Date of service: 02/28/2018 PROCEDURE: MRI of the left lower extremity with and without contrast HISTORY: left anterior lin wound COMPARISON: TECHNIQUE: MRI of the left lower extremity was performed in multiple planes using multiple pulse sequences. 11 cc of Omniscan were injected. FINDINGS: There is minimal subcutaneous edema of the anterior lin. There is no adjacent osteomyelitis. No focal abscess. There is some marrow edema in the proximal fibula. There appears to be distinct fracture lines as seen on axial image 2 series 9. Findings are consistent with a nondisplaced fracture. The nondisplaced fracture of the proximal fibula was not mentioned on the [place] [facility] report IMPRESSION: No evidence of osteomyelitis. Nondisplaced fracture of the proximal fibula
[2018-03-01] MEDS: Multivitamin Therapeutic Tab PO SCH (11:30)
[2018-03-01] MEDS: Vancomycin 500mg in NS 500 MG/100 ML BAG IVPB SCH ×2 (11:30→21:54)
--- NOTE | 2018-03-01 15:59 | CP.PCM.PN ---
<Eleonora Bar - Last Filed: 03/01/18 16:08> Subjective - Date & Time of Evaluation Date of Evaluation: 03/01/18 Time of Evaluation: 12:00 - Subjective Subjective: Eleonora Bar PGY1 Medicine Progress Note for Dr. Olvera Patient seen and examined at bedside this morning. No acute events reported overnight. Patient continue to admits to LLE pain; unchanged since prior day. Tolerating diet well. Denies CP, SOB, fevers, chills, nausea, vomiting, urinary complaints, numbness, and tingling. Objective - Vital Signs/Intake and Output Vital Signs (last 24 hours): Temp Pulse Resp BP Pulse Ox 97.9 F 74 19 135/85 96 03/01/18 14:00 03/01/18 14:00 03/01/18 14:00 03/01/18 14:00 03/01/18 14:00 Intake and Output: 03/01/18 03/01/18 06:59 18:59 Intake Total 920 Output Total 700 Balance 220 - Medications Medications: Current Medications Albuterol/Ipratropium (Duoneb 3 Mg/0.5 Mg (3 Ml) Ud) 3 ml IH Q2H PRN PRN Reason: Shortness of Breath Amlodipine Besylate (Norvasc) 2.5 mg PO DAILY [facility] Last Admin: 03/01/18 11:29 Dose: 2.5 mg Benzocaine/Menthol (Cepacol Sore Throat) 1 jay MT TID PRN PRN Reason: Sore Throat Last Admin: 03/01/18 05:30 Dose: 1 jay Benzonatate (Tessalon Perles) 100 mg PO TID PRN PRN Reason: Cough Clopidogrel Bisulfate (Plavix) 75 mg PO DAILY [facility] Last Admin: 03/01/18 11:29 Dose: 75 mg Escitalopram Oxalate (Lexapro) 20 mg PO DAILY [facility] Last Admin: 03/01/18 11:30 Dose: 20 mg Famotidine (Pepcid) 20 mg PO Q12 [facility] Last Admin: 03/01/18 11:29 Dose: 20 mg Folic Acid (Folic Acid) 1 mg PO DAILY [facility] Last Admin: 03/01/18 11:29 Dose: 1 mg Vancomycin HCl (Vancomycin 500mg In Ns) 500 mg in 100 mls @ 200 mls/hr IVPB 0900,2100 [facility]; Protocol Last Admin: 03/01/18 11:30 Dose: 200 mls/hr Multivitamins (Thera Tab) 1 tab PO 0800 [facility] Last Admin: 03/01/18 11:30 Dose: 1 tab Risperidone (Risperdal Tab) 2 mg PO DAILY [facility]; Protocol Last Admin: 03/01/18 11:30 Dose: 2 mg Rivaroxaban (Xarelto) 20 mg PO DAILY [facility]; Protocol Last Admin: 03/01/18 11:29 Dose: 20 mg Thiamine HCl (Vitamin B1 Tab) 100 mg PO DAILY [facility] Last Admin: 03/01/18 11:30 Dose: 100 mg Tramadol HCl (Ultram) 25 mg PO TID PRN PRN Reason: Pain, severe (8-10) Last Admin: 03/01/18 03:57 Dose: 25 mg - Labs Labs: 02/28/18 07:00 02/28/18 07:00 - Constitutional Appears: No Acute Distress - Head Exam Head Exam: ATRAUMATIC, NORMAL INSPECTION - Eye Exam Eye Exam: EOMI Pupil Exam: PERRL - ENT Exam ENT Exam: Mucous Membranes Moist - Respiratory Exam Respiratory Exam: Clear to Ausculation Bilateral. absent: Accessory Muscle Use, Respiratory Distress - Cardiovascular Exam Cardiovascular Exam: REGULAR RHYTHM, +S1, +S2 - GI/Abdominal Exam GI & Abdominal Exam: Soft, Normal Bowel Sounds. absent: Guarding, Rigid - Extremities Exam Additional comments: B/L leg swelling appreciated, left worse than right. Pulses are +2 B/L in dorsalis pedis. Left anterior lower leg has wound measuring 5cm x 2 cm that is non bleeding with no pus appreciated. Granulation tissue appreciated. - Neurological Exam Neurological Exam: Alert, Oriented x3 - Skin Skin Exam: Normal Color, Warm Assessment and Plan - Assessment and Plan (Free Text) Assessment: This is a 62 year old male with PMH of schizophrenia, bipolar disorder, prostate cancer that is in remission, active smoker, alcohol abuse, DVT and chronic LLE wound presenting to hospital for management of chronic lower left leg wound and pneumonia. Plan: Chronic LLE wound : -LE MRI shows no evidence of osteomyelitis, nondisplaced fracture of proximal fibula -wound care dressed today -wound culture pending -Podiatry on consult, Dr. Patton -per podiatry, patient to f/u in wound care center after discharge -wound cultures from 02/15 revealed sensitivity to vancomycin -blood culture is negative after 24 hours -tramadol prn for pain -continue plavix, received stent in LLE last month Pneumonia: -Chest CT shows minimal linear infiltrate which could represent scarring. Developing pneumonia possible -CXR shows RLL infiltrate -today patient is afebrile with normal WBC -procalc is <0.05 -continue vancomycin -will check vancomycin trough level after third dose -legionella is negative -ID on consult, Dr. Giraldo -continue duonebs, cepacol History of hypertension: -currently controlled -continue norvasc 2.5mg daily History of DVT: -continue xarelto History of bipolar disorder, schizophrenia: -continue home medications risperidone and lexapro History of alcohol abuse: -UDS and alcohol levels are unremarkable on admission Patient seen and case discussed with attending, Dr. Olvera <Sabiha Olvera R - Last Filed: 03/03/18 15:03> Objective - Vital Signs/Intake and Output Vital Signs (last 24 hours): Temp Pulse Resp BP Pulse Ox 97.9 F 83 20 139/81 91 L 03/02/18 14:00 03/02/18 14:00 03/02/18 14:00 03/02/18 14:00 03/02/18 14:00 - Labs Labs: 03/02/18 09:00 03/02/18 09:00 Attending/Attestation - Attestation I have personally seen and examined this patient.: Yes I have fully participated in the care of the patient.: Yes I have reviewed all pertinent clinical information, including history, physical exam and plan: Yes Notes (Text): Patient seen and examined by me with resident at 1:05PM with resident 03/01/18. Case including HPI, physical exam, and assessment and plan discussed with resident. Agree with above with following additions/corrections. Patient is 62-year-old male with past medical history significant for bipolar disorder, schizophrenia, prostate cancer in remission, alcohol abuse, tobacco abuse, left lower extremity DVT, and chronic left lower extremity wound that presented to the emergency room for pain medication of left leg pain. Patient states he feels better. Complains of cough. States pain in left lower extremity is better. Patient denies chest pain or shortness of breath. No palpitations. No fevers or chills. No nausea, vomiting, abdominal pain. No dysuria. No diarrhea or constipation. Physical exam: General: Awake and alert lying in bed in no acute distress HEENT: Normocephalic, atraumatic. Extraocular muscles intact, pupils equal and reactive, no scleral icterus. Oropharynx is pink and moist. Neck is supple. Cardiovascular: Regular rhythm. Normal S1 and S2. No murmurs, rubs, or gallops appreciated Pulmonary: Normal respiratory effort. No rhonchi, rales, or wheezing appreciated. Gastrointestinal: Soft, nondistended. Nontender. Positive bowel sounds all 4 quadrants. No guarding. Musculoskeletal: Moves all extremities. Bilateral lower extremity chronic edema. Left lower extremity calf tenderness. Dressing left lower extremity clean, dry, and intact Central nervous system: AAO x3 Dermatologic: Skin warm and dry. Positive chronic healing wound on left anterior lin. Assessment and plan: Patient is 62-year-old male with past medical history significant for bipolar disorder, schizophrenia, prostate cancer in remission, alcohol abuse, tobacco abuse, left lower extremity DVT, and chronic left lower extremity wound that presented to the emergency room for pain medication of left leg pain. 1. Lower extremity pain secondary to chronic left leg wound. Podiatry following, recommendations appreciated. Left lower extremity MRI per radiologist showed no evidence of osteomyelitis, nondisplaced fracture of proximal fibula. Patient to follow up at wound care center for further care per supervisor burling and joining. Continue with p ain management. Wound culture results pending. Will need results prior to discharge for antibiotics. Blood cultures with no growth. Continue vancomycin. ID following, recommendations appreciated. 2. Possible healthcare associated pneumonia. Chest x-ray per radiologist showed slight increase in patchy infiltrate right lower lobe. Chest CT per radiologist showed minimal linear infiltrate in the lingula or segment, this could represent scarring, developing pneumonia possible. Patient with cough. No leukocytosis. Afebrile. ID following, recommendations appreciated. Urine for Legionella negative. Pro-calcitonin less than 0.05. Unlikely pneumonia 3. History of DVT. Continue Xarelto 4. Hypertension. Continue Norvasc 2.5mg daily. 5. Bipolar disorder. Schizophrenia. Continue risperidone and lexapro. 6. History of ETOH abuse. Continue with thiamine, folic acid, multivitamin. 7. GI/DVT prophylaxis. Pepcid and Xarelto. Case was discussed in detail with the patient regarding current diagnosis and treatment plan. All questions answered.
[2018-03-02 08:08] VITALS: PULSE 83
[2018-03-02] MEDS: Multivitamin Therapeutic Tab PO SCH (08:27)
[2018-03-02] MEDS: Vancomycin 500mg in NS 500 MG/100 ML BAG IVPB SCH (08:56)
[2018-03-02 09:11] LABS: BASO # 0.02 K/mm3 (0.0-2.0); BASO % 0.3 % (0.0-3.0); EOS # 0.2 (0.0-0.7); EOS % 3.4 % (1.5-5.0); GRAN # 4.65 (1.4-6.5); GRAN % 74.6 % (50.0-68.0); HEMOGLOBIN 12.2 g/dL (14.0-18.0); LYMPH % 15.6 % (22.0-35.0); MEAN CELL VOLUME 90.1 fl (80.0-105.0); MEAN CORPUSCULAR HEMOGLOBIN 30.3 pg (25.0-35.0); MEAN CORPUSCULAR HGB CONC 33.6 g/dl (31.0-37.0); MEAN PLATELET VOLUME 8.5 fl (7.0-11.0); MONO # 0.4 (0.1-0.6); MONO % 6.1 % (1.0-6.0); RBC 4.03 10^6/uL (3.5-6.1); RED CELL DISTRIBUTION WIDTH 13.5 % (11.5-14.5); WHITE BLOOD COUNT 6.2 10^3/uL (4.5-11.0)
[2018-03-02 09:31] LABS: ALB/GLOB RATIO 1.1 (1.1-1.8); ALBUMIN 3.9 g/dL (3.0-4.8); ALT/SGPT 19 U/L (7-56); AST/SGOT 21 U/L (17-59); BLOOD UREA NITROGEN 19 mg/dL (7-21); GFR NON-AFRICAN AMERICAN > 60
[2018-03-02] MEDS: Cefepime 1gm in NS 100ml 1 GM/100 ML BAG IVPB SCH ×2 (10:13→16:46)
--- NOTE | 2018-03-02 11:21 | CP.PCM.PN ---
Subjective - Date & Time of Evaluation Date of Evaluation: 03/02/18 Time of Evaluation: 11:14 - Subjective Subjective: Podiatry progress note for Dr. Patton 62 yo male patient seen and evaluated at bedside resting comfortably. Reports no acute complaints overnight. States his legs are not in any pain and he has been taking walks around the hallway comfortably. Denies N/V/F/C/SOB but reports a cough. Has no other pedal complaints today. Objective - Vital Signs/Intake and Output Vital Signs (last 24 hours): Temp Pulse Resp BP Pulse Ox 97.7 F 83 16 140/88 95 03/02/18 06:00 03/02/18 06:00 03/02/18 06:00 03/02/18 09:01 03/02/18 06:00 Intake and Output: 03/02/18 03/02/18 06:59 18:59 Intake Total 1420 Output Total 1320 Balance 100 - Medications Medications: Current Medications Albuterol/Ipratropium (Duoneb 3 Mg/0.5 Mg (3 Ml) Ud) 3 ml IH Q2H PRN PRN Reason: Shortness of Breath Amlodipine Besylate (Norvasc) 2.5 mg PO DAILY [facility] Last Admin: 03/02/18 09:01 Dose: 2.5 mg Benzocaine/Menthol (Cepacol Sore Throat) 1 jay MT TID PRN PRN Reason: Sore Throat Last Admin: 03/01/18 23:33 Dose: 1 jay Benzonatate (Tessalon Perles) 100 mg PO TID PRN PRN Reason: Cough Last Admin: 03/02/18 08:27 Dose: 100 mg Clopidogrel Bisulfate (Plavix) 75 mg PO DAILY [facility] Last Admin: 03/02/18 09:00 Dose: 75 mg Escitalopram Oxalate (Lexapro) 20 mg PO DAILY [facility] Last Admin: 03/02/18 09:00 Dose: 20 mg Famotidine (Pepcid) 20 mg PO Q12 [facility] Last Admin: 03/02/18 09:00 Dose: 20 mg Folic Acid (Folic Acid) 1 mg PO DAILY [facility] Last Admin: 03/02/18 09:00 Dose: 1 mg Vancomycin HCl (Vancomycin 500mg In Ns) 500 mg in 100 mls @ 200 mls/hr IVPB 0900,2100 [facility]; Protocol Last Admin: 03/02/18 08:56 Dose: 200 mls/hr Cefepime HCl (Maxipime 1gm) 1 gm in 100 mls @ 100 mls/hr IVPB Q8 [facility]; Protocol Last Admin: 03/02/18 10:13 Dose: 100 mls/hr Multivitamins (Thera Tab) 1 tab PO 0800 [facility] Last Admin: 03/02/18 08:27 Dose: 1 tab Risperidone (Risperdal Tab) 2 mg PO DAILY [facility]; Protocol Last Admin: 03/02/18 09:00 Dose: 2 mg Rivaroxaban (Xarelto) 20 mg PO DAILY [facility]; Protocol Last Admin: 03/02/18 09:01 Dose: 20 mg Thiamine HCl (Vitamin B1 Tab) 100 mg PO DAILY [facility] Last Admin: 03/02/18 09:02 Dose: 100 mg Tramadol HCl (Ultram) 25 mg PO TID PRN PRN Reason: Pain, severe (8-10) Last Admin: 03/02/18 08:27 Dose: 25 mg - Labs Labs: 03/02/18 09:00 03/02/18 09:00 - Constitutional Appears: Well, Non-toxic, No Acute Distress - Head Exam Head Exam: ATRAUMATIC, NORMOCEPHALIC - Extremities Exam Additional comments: B/l LE exam: Vascular: DP/PT palpable, CFT <3 seconds to all digits, TG warm to warm, + 2 pitting edema to bilateral lower extremities L > R. Ortho: Tenderness to palpation of LLE, tenderness upon calf compression to LLE Neuro: sensation intact b/l Derm: Superficial ulceration noted to LLE at the level of the mid-tibia anteriorly. Wound bed exhibits raised hypergranular tissue with minimal serous drainage no probe to bone, no tunneling, no tracking, mild erythema noted periwound - Neurological Exam Neurological Exam: Alert, Awake, Oriented x3 - Psychiatric Exam Psychiatric exam: Normal Affect, Normal Mood Assessment and Plan - Assessment and Plan (Free Text) Assessment: 62 y/o male evaluated for left leg pain, swelling, and chronic ulceration. Plan: Patient seen and evaluated at bedside with Dr. Patton Charts and labs reviewed: VSS, afebrile and absent leukocytosis Wound cleansed with sterile saline and dressed with maxorb and DSD, unna boot and coban applied to the LLE Patient stated he was changed to oral abx upon d/c His wound is stable from podiatry standpoint, will follow up in wound clinic at [place] within one week of discharge; possible procedure to be performed on outpatient basis Instructed patient to nonweightbear to his left lower extremity as much as possible for benefit of healing progression, patient stated understanding Will continue to follow while in house
[2018-03-02] MEDS ORDERED: Unna Boot TOP STA (11:53)
[2018-03-02] MEDS ORDERED: guaiFENesin 200 mg/10 ml Syrup UD PO PRN (13:23)
[2018-03-02 15:40] VITALS: BP 139/81; RESP 20; TEMP 97.9; O2SAT 91
--- NOTE | 2018-03-02 16:50 | CP.PCM.PN ---
Subjective - Date & Time of Evaluation Date of Evaluation: 03/01/18 Time of Evaluation: 10:45 - Subjective Subjective: No fevers, not in distress, improved pain in the left leg. Objective - Vital Signs/Intake and Output Vital Signs (last 24 hours): Temp Pulse Resp BP Pulse Ox 97.8 F 78 20 132/74 97 02/28/18 14:00 02/28/18 14:00 02/28/18 14:00 02/28/18 14:00 02/28/18 14:00 - Medications Medications: Current Medications Albuterol/Ipratropium (Duoneb 3 Mg/0.5 Mg (3 Ml) Ud) 3 ml IH Q2H PRN PRN Reason: Shortness of Breath Amlodipine Besylate (Norvasc) 2.5 mg PO DAILY [facility] Last Admin: 02/28/18 09:38 Dose: 2.5 mg Benzocaine/Menthol (Cepacol Sore Throat) 1 jay MT TID PRN PRN Reason: Sore Throat Last Admin: 02/28/18 18:25 Dose: 1 jay Benzonatate (Tessalon Perles) 100 mg PO TID PRN PRN Reason: Cough Clopidogrel Bisulfate (Plavix) 75 mg PO DAILY [facility] Last Admin: 02/28/18 09:36 Dose: 75 mg Escitalopram Oxalate (Lexapro) 20 mg PO DAILY [facility] Last Admin: 02/28/18 09:37 Dose: 20 mg Famotidine (Pepcid) 20 mg PO Q12 [facility] Last Admin: 02/28/18 09:37 Dose: 20 mg Folic Acid (Folic Acid) 1 mg PO DAILY [facility] Vancomycin HCl (Vancomycin 500mg In Ns) 500 mg in 100 mls @ 200 mls/hr IVPB 0900,2100 [facility]; Protocol Last Admin: 02/28/18 09:36 Dose: 200 mls/hr Multivitamins (Thera Tab) 1 tab PO 0800 [facility] Risperidone (Risperdal Tab) 2 mg PO DAILY [facility]; Protocol Last Admin: 02/28/18 09:36 Dose: 2 mg Rivaroxaban (Xarelto) 20 mg PO DAILY [facility]; Protocol Thiamine HCl (Vitamin B1 Tab) 100 mg PO DAILY [facility] Tramadol HCl (Ultram) 25 mg PO TID PRN PRN Reason: Pain, severe (8-10) Last Admin: 02/28/18 18:21 Dose: 25 mg - Labs Labs: 02/28/18 07:00 02/28/18 07:00 - Constitutional Appears: Chronically Ill - Head Exam Head Exam: NORMAL INSPECTION - Respiratory Exam Respiratory Exam: Decreased Breath Sounds - Cardiovascular Exam Cardiovascular Exam: +S1, +S2 - GI/Abdominal Exam GI & Abdominal Exam: Soft. absent: Tenderness - Extremities Exam Additional comments: left leg with dressings in place Assessment and Plan - Assessment and Plan (Free Text) Plan: Assessment Left lower extremity chronic wound with Acinetobacter and E. faecalis linear atelectasis on CT chest, unlikely pneumonia bipolar disorder schizophrenia alcohol abuse DVT chronic left lower extremity wound Plan on Vancomycin Cefepime - can switch to PO Levaquin (apparently has Cipro allergy but has tried Levaquin before and was ok with it) and Augmentin - discussed with Dr. Patton - will follow up with Podiatry as outpatient reviewed CT chest - PCT is <0.05 - unlikely bacterial pneumonia
--- NOTE | 2018-03-02 17:17 | CP.PCM.DIS ---
Provider - Provider Date of Admission: 02/27/18 18:58 Attending physician: Benny Garber MD Primary care physician: NO PRIMARY CARE PROVIDER Consults: ID: Dr. Giraldo Podiatry: Dr. Patton Time Spent in preparation of Discharge (in minutes): 35 Hospital Course - Lab Results Lab Results: Micro Results 02/27/18 17:13 Blood Blood Culture - Preliminary NO GROWTH AFTER 3 DAYS 02/27/18 16:45 Blood Blood Culture - Preliminary NO GROWTH AFTER 3 DAYS 02/28/18 08:27 Leg - Left Gram Stain - Final 02/28/18 08:27 Leg - Left Wound Culture - Final Acinetobacter Baumannii Enterococcus Faecalis 02/28/18 06:30 Naris MRSA Culture (Admit) - Final MRSA NOT DETECTED Most Recent Lab Values WBC 6.2 10^3/uL (4.5-11.0) 03/02/18 09:00 RBC 4.03 10^6/uL (3.5-6.1) 03/02/18 09:00 Hgb 12.2 g/dL (14.0-18.0) L 03/02/18 09:00 Hct 36.3 % (42.0-52.0) L 03/02/18 09:00 MCV 90.1 fl (80.0-105.0) 03/02/18 09:00 MCH 30.3 pg (25.0-35.0) 03/02/18 09:00 MCHC 33.6 g/dl (31.0-37.0) 03/02/18 09:00 RDW 13.5 % (11.5-14.5) 03/02/18 09:00 Plt Count 181 10^3/uL (120.0-450.0) 03/02/18 09:00 MPV 8.5 fl (7.0-11.0) 03/02/18 09:00 Gran % 74.6 % (50.0-68.0) H 03/02/18 09:00 Lymph % (Auto) 15.6 % (22.0-35.0) L 03/02/18 09:00 Smyth % (Auto) 6.1 % (1.0-6.0) H 03/02/18 09:00 Eos % (Auto) 3.4 % (1.5-5.0) 03/02/18 09:00 Baso % (Auto) 0.3 % (0.0-3.0) 03/02/18 09:00 Gran # 4.65 (1.4-6.5) 03/02/18 09:00 Lymph # (Auto) 1.0 (1.2-3.4) L 03/02/18 09:00 Smyth # (Auto) 0.4 (0.1-0.6) 03/02/18 09:00 Eos # (Auto) 0.2 (0.0-0.7) 03/02/18 09:00 Baso # (Auto) 0.02 K/mm3 (0.0-2.0) 03/02/18 09:00 Sodium 137 mmol/L (132-148) 03/02/18 09:00 Potassium 4.4 mmol/L (3.6-5.0) 03/02/18 09:00 Chloride 101 mmol/L (98-107) 03/02/18 09:00 Carbon Dioxide 27 mmol/L (21-33) 03/02/18 09:00 Anion Gap 13 (10-20) 03/02/18 09:00 BUN 19 mg/dL (7-21) 03/02/18 09:00 Creatinine 0.9 mg/dl (0.8-1.5) 03/02/18 09:00 Est GFR ( Amer) > 60 03/02/18 09:00 Est GFR (Non-Af Amer) > 60 03/02/18 09:00 Random Glucose 178 mg/dL (70-110) H 03/02/18 09:00 Calcium 9.0 mg/dL (8.4-10.5) 03/02/18 09:00 Total Bilirubin 0.6 mg/dL (0.2-1.3) 03/02/18 09:00 AST 21 U/L (17-59) 03/02/18 09:00 ALT 19 U/L (7-56) 03/02/18 09:00 Alkaline Phosphatase 69 U/L (38-126) 03/02/18 09:00 Total Protein 7.5 g/dL (5.8-8.3) 03/02/18 09:00 Albumin 3.9 g/dL (3.0-4.8) 03/02/18 09:00 Globulin 3.6 gm/dL 03/02/18 09:00 Albumin/Globulin Ratio 1.1 (1.1-1.8) 03/02/18 09:00 Procalcitonin < 0.05 NG/ML (0.19-0.49) L 02/28/18 07:00 Urine Opiates Screen Negative (NEGATIVE) 02/28/18 04:00 Urine Methadone Screen Negative (NEGATIVE) 02/28/18 04:00 Ur Barbiturates Screen Negative (NEGATIVE) 02/28/18 04:00 Ur Phencyclidine Scrn Negative (NEGATIVE) 02/28/18 04:00 Ur Amphetamines Screen Negative (NEGATIVE) 02/28/18 04:00 U Benzodiazepines Scrn Negative (NEGATIVE) 02/28/18 04:00 U Oth Cocaine Metabols Negative (NEGATIVE) 02/28/18 04:00 U Cannabinoids Screen Negative (NEGATIVE) 02/28/18 04:00 Alcohol, Quantitative < 10 mg/dL (0-10) 02/27/18 17:13 Ur L.pneumophila Ag Negative (NEGATIVE) 02/28/18 04:00 - Hospital Course Hospital Course: Upon admission Mr. Lam Light is a 62 year old male with a past medical history of bipolar disorder, schizophrenia, prostate cancer in remission, alcohol abuse, active smoker, DVT, HTN, and chronic LLE wound who presented to the [facility] Emergency Department (ED) on 02/27/2018 requesting a Toradol shot for his left leg pain. Patient stated he sees wound care as an out patient, last visit was last week. Patient reported he sees Dr. Beard. Patient stated he was recently in the hospital for his chronic leg wound and was discharged with an abx prescription but he was unable to fill it because of insurance issues. Patient also admitted to having financial difficulty filling his ofther medications including xaralto and plavix. Patient denied any chest pain, SOB, abdominal pain, nausea, vomiting, dizziness, weekness. He didn't have any other complaints. Patient admitted to being an active smoker, 3-5 cigarets/day for 40 years, and alcohol abuse, patient denied drug use. Hospital course Home medications which were continued: Xarelto, plavix, risperidone, and lexapro. Patient had a CXR which showed RLL infiltrate. Patient had a chest CT shows minimal linear infiltrate which could represent scarring, developing pneumonia possible, CXR shows RLL infiltrate and PCT is <0.05. LE MRI showed no evidence of osteomyelitis, nondisplaced fracture of proximal fibula. ID and Podiatry were consulted. Wound cultures from 02/15/2018 revealed sensitivity to vancomycin. Vancomycin and zosyn were given. Toradol was given for the pain. Blood cultures grew back negative. MRSA was not detected. Wound culture grew Acinetobacter Baumannii and Enterococcus Faecalis. Patient's HTN was well conrolled on Norvasc 2.5 mg Daily. Wound cleansed with sterile saline and dressed with maxorb and DSD, unna boot and coban applied to the LLE. Upon discharge Per podiatry, patient to f/u in wound care center at [place] within one week of discharge; possible procedure to be performed on outpatient basis. Patient instructed to nonweightbear to his left lower extremity as much as possible for benefit of healing progression, patient stated understanding. Patient will be sent with Abx. Discharge Exam - Head Exam Head Exam: NORMAL INSPECTION - Eye Exam Eye Exam: EOMI Pupil Exam: PERRL - ENT Exam ENT Exam: Mucous Membranes Moist - Respiratory Exam Respiratory Exam: Clear to PA & Lateral. absent: Accessory Muscle Use, Respiratory Distress - Cardiovascular Exam Cardiovascular Exam: REGULAR RHYTHM, +S1, +S2 - GI/Abdominal Exam GI & Abdominal Exam: Normal Bowel Sounds, Soft. absent: Firm, Guarding - Extremities Exam Additional comments: B/L leg swelling appreciated, left worse than right. Pulses are +2 B/L in dorsalis pedis. Left anterior lower leg has wound measuring 5cm x 2 cm that is non bleeding with no pus appreciated. Granulation tissue appreciated. - Neurological Exam Neurological exam: Alert, Oriented x3 - Skin Skin Exam: Normal Color, Warm Discharge Plan - Discharge Medications Prescriptions: amLODIPine [Norvasc] 2.5 mg PO DAILY #30 tab Amoxicillin/Clavulanate [Augmentin 875 MG-125 MG] 1 tab PO Q12 #14 tab Clopidogrel [Plavix] 75 mg PO DAILY #30 tab Escitalopram [Lexapro] 20 mg PO DAILY #30 tab Folic Acid 1 mg PO DAILY #30 tab Levofloxacin [Levaquin] 500 mg PO DAILY #7 tablet Multivitamin Therapeutic Tab [Thera Tab] 1 tab PO 0800 #30 tab risperiDONE [RisperDAL Tab] 2 mg PO DAILY 30 Days #30 tab Rivaroxaban [Xarelto] 20 mg PO DAILY #30 tab Thiamine [Vitamin B1 Tab] 100 mg PO DAILY #30 tab - Follow Up Plan Condition: FAIR Disposition: HOME/ ROUTINE Instructions: Pneumonia in Adults, Alcohol Use - When Is Drinking a Problem?, Quitting Smoking, Foot Care for Diabetics, Unna Boot Additional Instructions: Try to be Non weight bearing to your left lower extremity as much as possible for benefit of healing progression. Please stop smoking. Tobacco product is harmful to health. Please complete antibiotics as prescribed. Follow up with your primary care doctor, Dr.Lawson Keane, [facility], [place], [place] within 3-5 days Follow up with podiatry, Dr. Patton, at the wound care clinic, 3rd floor, [facility] tomorrow , 03/02/18, 9:15AM. If any new symptoms, call primary care doctor or come to the emergency room Referrals: PCP,NO [Primary Care Provider] -
== END 2018-03-02 17:16 | disposition home or self-care (01) | DRG 139 ==
LOC: ED 14:26 → ERH 18:58 → 5RSO 20:53
PROVIDERS: ADMIT Internal Medicine; ATTEND Internal Medicine
DX: J18.9 Pneumonia, unspecified organism (principal); L03.116 Cellulitis of left lower limb; I10 Essential (primary) hypertension; F20.0 Paranoid schizophrenia; F31.9 Bipolar disorder, unspecified; F10.10 Alcohol abuse, uncomplicated; Z79.01 Long term (current) use of anticoagulants; Z85.46 Personal history of malignant neoplasm of prostate; Z86.718 Personal history of other venous thrombosis and embolism; Z87.01 Personal history of pneumonia (recurrent); Z87.440 Personal history of urinary (tract) infections; Z90.49 Acquired absence of other specified parts of digestive tract; Z62.810 Personal history of physical and sexual abuse in childhood; F17.210 Nicotine dependence, cigarettes, uncomplicated; R40.2412 Glasgow coma scale score 13-15, at arrival to emergency department; L97.929 Non-pressure chronic ulcer of unspecified part of left lower leg with unspecified severity

== ENCOUNTER 2018-08-31 23:44 | Emergency (ER) | payer MEDICAID, OTHER ==
[2018-08-31 23:44] VITALS: BMI 31.0
--- NOTE | 2018-09-01 00:20 | ED PDOC ---
Arrival/HPI - General Historian: Patient - History of Present Illness Narrative History of Present Illness (Text): 09/01/18 00:20 Pt is a 62 yo male with a PMH of DVT with stent placement, schizophrenia, bipolar, Hypertension, chronic lymphedema, who presents to the emergency dep artment complaining of LLE pain/burning/swelling which started this morning. Pt is also asking for a place to stay the night. Time/Duration: 4-6 hours Symptom Onset: Gradual Symptom Course: Unchanged Quality: Burning <Antony Caro - Last Filed: 09/01/18 03:31> <Mirela Maddox - Last Filed: 09/01/18 22:57> - General Chief Complaint: Lower Extremity Problem/Injury Past Medical History - Infectious Disease Hx of Infectious Diseases: None - Cardiac Hx Hypertension: Yes Hx Peripheral Edema: Yes - Pulmonary Hx Pneumonia: Yes - Neurological Hx Seizures: No - HEENT Hx HEENT Disorder: No - Renal Hx Renal Disorder: No - Endocrine/Metabolic Hx Endocrine Disorders: No - Hematological/Oncological Hx Blood Disorders: Yes Hx Cancer: Yes (prostate , no chemo or radiation) Hx Hepatitis C: Yes - Integumentary Hx Dermatological Disorder: Yes Other/Comment: Cellulitis of left lower extremity, Ulcerations to LLE - Musculoskeletal/Rheumatological Hx Musculoskeletal Disorders: No - Gastrointestinal Hx Gastritis: Yes - Genitourinary/Gynecological Hx Sexually Transmitted Diseases: No - Psychiatric Hx Anxiety: Yes Hx Bipolar Disorder: Yes Hx Depression: Yes Hx Schizophrenia: Yes (paranoid schizoprenia) Hx Substance Use: No - Surgical History Hx Appendectomy: Yes - Anesthesia Hx Anesthesia: Yes Hx Anesthesia Reactions: No Hx Malignant Hyperthermia: No <Antony Caro - Last Filed: 09/01/18 03:31> Family/Social History Family/Social History: No Known Family HX Smoking Status: Light Smoker < 10 Cigarettes Daily Hx Alcohol Use: Yes Hx Substance Use: No <Antony Caro - Last Filed: 09/01/18 03:31> Allergies/Home Meds <Antony Caro - Last Filed: 09/01/18 03:31> <Mirela Maddox - Last Filed: 09/01/18 22:57> Allergies/Adverse Reactions: Allergies ciprofloxacin [From Cipro] Allergy (Verified 08/31/18 21:47) RASH Physical Exam Temperature: Afebrile Blood Pressure: Normal Pulse: Regular Respiratory Rate: Normal Appearance: Positive for: Well-Appearing Mental Status: Positive for: Alert and Oriented X 3 - Systems Exam Head: Present: Atraumatic, Normocephalic Pupils: Present: PERRL Extroacular Muscles: Present: EOMI Conjunctiva: Present: Normal Mouth: Present: Moist Mucous Membranes Neck: Present: Normal Range of Motion Respiratory/Chest: Present: Clear to Auscultation, Good Air Exchange. No: Respiratory Distress, Accessory Muscle Use Cardiovascular: Present: Regular Rate and Rhythm, Normal S1, S2. No: Murmurs Abdomen: Present: Normal Bowel Sounds. No: Tenderness, Distention Upper Extremity: Present: Normal Inspection Lower Extremity: Present: Edema, Deformity Neurological: Present: CN II-XII Intact Skin: Present: Warm, Dry Psychiatric: Present: Alert, Oriented x 3 <Antony Caro - Last Filed: 09/01/18 03:31> Vital Signs Temp Pulse Resp BP Pulse Ox 09/01/18 04:29 84 14 138/88 98 09/01/18 04:14 84 14 138/88 98 08/31/18 23:51 98.2 F 89 14 141/56 L 95 <Mirela Maddox - Last Filed: 09/01/18 22:57> Medical Decision Making ED Course and Treatment: 09/01/18 00:26 LLE pain/ burning, rule out DVT 30 toradol for pain 09/01/18 03:29 LE US no signs of DVT Pt seen, examined, assessment and plan discussed with Dr Tan Caro PGY1 <Antony Caro - Last Filed: 09/01/18 03:31> ED Course and Treatment: In agreement with resident note, which includes further HPI details. Patient was seen and evaluated with resident, came up with plan and treatment together. - RAD Interpretation Radiology Orders: 09/01/18 00:25 DUPLEX LOWER EXTRM VEIN BILAT [US] Stat - Medication Orders Current Medication Orders: Discontinued Medications Ketorolac Tromethamine (Toradol) 30 mg IVP STAT STA Stop: 09/01/18 00:29 Last Admin: 09/01/18 00:56 Dose: 30 mg MAR Pain Assessment Document 09/01/18 00:56 EB (Rec: 09/01/18 00:56 [id number]) Pain Reassessment Is this a pain reassessment? No Sleep Is patient sleeping during reassessment? No Presence of Pain Presence of Pain Yes Pain Scale Used Protocol: PSCALES Pain Scale Used Numeric IVP Administration Document 09/01/18 00:56 (Rec: 09/01/18 00:56 [id number]) Charges for Administration # of IVP Administrations 1 <Mirela Maddox - Last Filed: 09/01/18 22:57> Disposition/Present on Arrival - Present on Arrival Any Indicators Present on Arrival: No History of DVT/PE: No History of Uncontrolled Diabetes: No Urinary Catheter: No History of Decub. Ulcer: No History Surgical Site Infection Following: None - Disposition Have Diagnosis and Disposition been Completed?: Yes Disposition Time: 03:28 Patient Plan: Discharge <Antony Caro - Last Filed: 09/01/18 03:31> <Mirela Maddox - Last Filed: 09/01/18 22:57> - Disposition Diagnosis: Lymphedema, Lymphedema of left leg Disposition: HOME/ ROUTINE Condition: GOOD Discharge Instructions (ExitCare): Lymphedema, Swelling, Lymphedema (DC), Lowering Your Chance for Lymphedema Referrals: Erick Giang MD [Primary Care Provider] - Follow up with primary Forms: [employer] ([place]ian)
[2018-09-01 00:57] VITALS: RESP 14; TEMP 98.2
[2018-09-01 04:15] VITALS: BP 138/88; PULSE 84; O2SAT 98
== END 2018-09-01 04:21 | disposition home or self-care (01) ==
LOC: ED 23:44
DX: I89.0 Lymphedema, not elsewhere classified (principal); I10 Essential (primary) hypertension; Z86.718 Personal history of other venous thrombosis and embolism; F17.210 Nicotine dependence, cigarettes, uncomplicated
CPT/HCPCS: 93970; 96374; 99283; J1885

== ENCOUNTER 2018-09-15 23:07 | Emergency (ER) | payer OTHER ==
[2018-09-15 23:13] VITALS: BMI 29.5
[2018-09-15 23:20] VITALS: TEMP 97.5
--- NOTE | 2018-09-15 23:42 | ED PDOC ---
Arrival/HPI <Sigifredo Quevedo - Last Filed: 09/16/18 02:28> - General Historian: Patient - History of Present Illness Narrative History of Present Illness (Text): 09/15/18 23:41 Pt is a 62 yo male with a PMH of prostate cancer, hepatitis, DVT, HTN, schizophrenia, bipolar, Hypertension, chronic lymphedema who presents to the ED complaining of chronic LLE pain which has gotten worse with associated swelling. Denies fever, SOB, vomiting, diarrhea, constipation, nausea, chest pain. Time/Duration: < month Symptom Onset: Gradual Symptom Course: Unchanged Quality: Aching Severity Level: 4 Activities at Onset: Rest Context: Sitting <Antony Caro - Last Filed: 09/16/18 02:32> - General Chief Complaint: Lower Extremity Problem/Injury Time Seen by Provider: 09/15/18 23:10 Past Medical History - Infectious Disease Hx of Infectious Diseases: None - Cardiac Hx Hypertension: Yes Hx Peripheral Edema: Yes - Pulmonary Hx Pneumonia: Yes - Neurological Hx Seizures: No - HEENT Hx HEENT Disorder: No - Renal Hx Renal Disorder: No - Endocrine/Metabolic Hx Endocrine Disorders: No - Hematological/Oncological Hx Blood Disorders: Yes Hx Cancer: Yes (prostate , no chemo or radiation) Hx Hepatitis C: Yes - Integumentary Hx Dermatological Disorder: Yes Other/Comment: Cellulitis of left lower extremity, Ulcerations to LLE - Musculoskeletal/Rheumatological Hx Musculoskeletal Disorders: No - Gastrointestinal Hx Gastritis: Yes - Genitourinary/Gynecological Hx Sexually Transmitted Diseases: No - Psychiatric Hx Anxiety: Yes Hx Bipolar Disorder: Yes Hx Depression: Yes Hx Schizophrenia: Yes (paranoid schizoprenia) Hx Substance Use: No - Surgical History Hx Appendectomy: Yes - Anesthesia Hx Anesthesia: Yes Hx Anesthesia Reactions: No Hx Malignant Hyperthermia: No <Antony Caro - Last Filed: 09/16/18 02:32> Family/Social History Family/Social History: Neoplasm/Cancer Smoking Status: Light Smoker < 10 Cigarettes Daily Hx Alcohol Use: Yes Hx Substance Use: No <Antony Caro - Last Filed: 09/16/18 02:32> Allergies/Home Meds <Sigifredo Quevedo - Last Filed: 09/16/18 02:28> <Antony Caro - Last Filed: 09/16/18 02:32> Allergies/Adverse Reactions: Allergies ciprofloxacin [From Cipro] Allergy (Verified 09/15/18 23:13) RASH Physical Exam Vital Signs Temp Pulse Resp BP Pulse Ox 09/15/18 23:16 97.5 F L 78 17 166/101 H 98 <Sigifredo Quevedo - Last Filed: 09/16/18 02:28> Vital Signs Temp Pulse Resp BP Pulse Ox 09/15/18 23:16 97.5 F L 78 17 166/101 H 98 <Antony Caro - Last Filed: 09/16/18 02:32> Medical Decision Making - Lab Interpretations Lab Results: PT 10.3 SECONDS (9.4-12.5) 09/16/18 00:05 INR 0.93 09/16/18 00:05 APTT 32.1 Seconds (26.9-38.3) 09/16/18 00:05 Total Bilirubin 0.3 mg/dL (0.2-1.3) 09/16/18 00:05 AST 20 U/L (17-59) 09/16/18 00:05 ALT 23 U/L (7-56) 09/16/18 00:05 Alkaline Phosphatase 74 U/L (38-126) 09/16/18 00:05 Total Protein 7.0 g/dL (5.8-8.3) 09/16/18 00:05 Albumin 4.0 g/dL (3.0-4.8) 09/16/18 00:05 Globulin 3.1 gm/dL 09/16/18 00:05 Albumin/Globulin Ratio 1.3 (1.1-1.8) 09/16/18 00:05 - RAD Interpretation Narrative RAD Interpretations (Text): 09/16/18 02:29 prelim US report: negative for DVT Radiology Orders: 09/15/18 23:52 DUPLEX LOWER EXTRM VEIN BILAT [US] Stat <Sigifredo Quevedo - Last Filed: 09/16/18 02:28> ED Course and Treatment: 09/16/18 00:13 CBC CMP coag studies BL LE US, rule out DVT 09/16/18 00:20 pt reports sore throat, no exudates, reports cough, rapid strep no indicated at this time 09/16/18 02:31 LE US negative diagnosis is chronic pain Pt seen, examined, assessment and plan discussed with Dr Sae Caro PGY1 <Antony Caro - Last Filed: 09/16/18 02:32> Disposition/Present on Arrival - Present on Arrival Any Indicators Present on Arrival: No - Disposition Have Diagnosis and Disposition been Completed?: Yes Disposition Time: 01:10 <Sigifredo Quevedo - Last Filed: 09/16/18 02:28> - Present on Arrival Any Indicators Present on Arrival: Yes History of DVT/PE: Yes History of Uncontrolled Diabetes: No Urinary Catheter: No History of Decub. Ulcer: No History Surgical Site Infection Following: None <Antony Caro - Last Filed: 09/16/18 02:32> - Disposition Diagnosis: Chronic pain Disposition: HOME/ ROUTINE Patient Problems: Current Active Problems Problem Status Onset Chronic pain Acute Condition: GOOD Discharge Instructions (ExitCare): Chronic Pain Forms: [facility] [employer] (Samoan)
[2018-09-16 00:30] LABS: BASO # 0.07 K/mm3 (0.0-2.0); BASO % 1.3 % (0.0-3.0); EOS # 0.5 (0.0-0.7); EOS % 9.6 % (1.5-5.0); LYMPH # 2.3 (1.2-3.4); LYMPH % 43.8 % (22.0-35.0); MEAN CELL VOLUME 90.3 fl (80.0-105.0); MEAN CORPUSCULAR HEMOGLOBIN 30.8 pg (25.0-35.0); MEAN CORPUSCULAR HGB CONC 34.1 g/dl (31.0-37.0); MEAN PLATELET VOLUME 9.4 fl (7.0-11.0); MONO # 0.5 (0.1-0.6); MONO % 8.7 % (1.0-6.0); RBC 4.54 10^6/uL (3.5-6.1); WHITE BLOOD COUNT 5.2 10^3/uL (4.5-11.0)
[2018-09-16 00:34] LABS: INR 0.93; PARTIAL THROMBOPLASTIN TIME 32.1 Seconds (26.9-38.3); PROTHROMBIN TIME 10.3 SECONDS (9.4-12.5)
[2018-09-16 00:35] LABS: ALB/GLOB RATIO 1.3 (1.1-1.8); ALT/SGPT 23 U/L (7-56); AST/SGOT 20 U/L (17-59); BLOOD UREA NITROGEN 18 mg/dL (7-21); CALCIUM 8.7 mg/dL (8.4-10.5); GFR NON-AFRICAN AMERICAN > 60
[2018-09-16 02:36] VITALS: BP 130/64; PULSE 72; RESP 18; O2SAT 95
== END 2018-09-16 02:55 | disposition home or self-care (01) ==
LOC: ED 23:07
DX: G89.29 Other chronic pain (principal); F20.9 Schizophrenia, unspecified; I10 Essential (primary) hypertension; F17.210 Nicotine dependence, cigarettes, uncomplicated; Z85.46 Personal history of malignant neoplasm of prostate; B19.20 Unspecified viral hepatitis C without hepatic coma; F31.9 Bipolar disorder, unspecified

== ENCOUNTER 2018-09-20 12:27 | Inpatient (IN) | payer OTHER ==
[2018-09-20 13:42] VITALS: BMI 28.8
[2018-09-20 15:14] LABS: URINE BILIRUBIN NEGATIVE (NEGATIVE); URINE BLOOD NEGATIVE (NEGATIVE); URINE GLUCOSE (UA) NEGATIVE (NEGATIVE); URINE LEUKOCYTE ESTERASE NEGATIVE Leu/uL (NEGATIVE); URINE PROTEIN NEGATIVE mg/dL (<30 mg/dL); URINE UROBILINOGEN 0.2 E.U./dL (<1 E.U./dL)
[2018-09-20 15:19] LABS: URINE APPEARANCE CLEAR (CLEAR); URINE COLOR YELLOW (YELLOW)
[2018-09-20 16:32] LABS: BARBITURATES, UR NEGATIVE (NEGATIVE); BENZODIAZEPINES, UR NEGATIVE (NEGATIVE); OPIATES, UR NEGATIVE (NEGATIVE); PHENCYCLIDINE, UR NEGATIVE (NEGATIVE)
--- NOTE | 2018-09-20 16:58 | RAD ---
Date of service: 2018-09-20 14:41:15 HISTORY: depression COMPARISON: Comparison made with chest radiograph dated 02/27/18. TECHNIQUE: 1 view obtained. FINDINGS: Study is somewhat limited due to patient rotation to the right LUNGS: Mild bibasilar atelectasis PLEURA: No significant pleural effusion identified, no pneumothorax apparent. CARDIOVASCULAR: Aorta slightly ectatic and uncoiled. No aortic atherosclerotic calcification present. Heart size upper limits of normal no pulmonary vascular congestion. OSSEOUS STRUCTURES: No significant abnormalities. VISUALIZED UPPER ABDOMEN: Normal. OTHER FINDINGS: None. IMPRESSION: Mild bibasilar atelectasis.
--- NOTE | 2018-09-20 18:10 | CARD ---
APPROVED REPORT Date of service: 09/20/2018 EKG Measurement Heart [id number] <Conclusion> Normal sinus rhythm Leftward axis Normal ECG
[2018-09-20 19:19] LABS: BASO # 0.04 K/mm3 (0.0-2.0); EOS # 0.4 (0.0-0.7); EOS % 8.4 % (1.5-5.0); HEMOGLOBIN 14.6 g/dL (14.0-18.0); LYMPH # 1.7 (1.2-3.4); LYMPH % 39.5 % (22.0-35.0); MEAN CORPUSCULAR HEMOGLOBIN 30.9 pg (25.0-35.0); MEAN CORPUSCULAR HGB CONC 34.7 g/dl (31.0-37.0); MEAN PLATELET VOLUME 9.3 fl (7.0-11.0); MONO # 0.5 (0.1-0.6); RBC 4.73 10^6/uL (3.5-6.1); RED CELL DISTRIBUTION WIDTH 12.9 % (11.5-14.5); WHITE BLOOD COUNT 4.2 10^3/uL (4.5-11.0)
[2018-09-20 19:34] LABS: ACETAMINOPHEN < 10.0 ug/ml (10.0-20.0); SALICYLATE < 1 mg/dL (2.0-20.0)
[2018-09-20 19:38] LABS: ALB/GLOB RATIO 1.3 (1.1-1.8); ALBUMIN 4.2 g/dL (3.0-4.8); ALT/SGPT 25 U/L (7-56); AST/SGOT 25 U/L (17-59); BLOOD UREA NITROGEN 14 mg/dL (7-21); GFR NON-AFRICAN AMERICAN > 60
--- NOTE | 2018-09-20 19:48 | ED PDOC ---
Arrival/HPI - General Chief Complaint: Psychiatric Evaluation Time Seen by Provider: 09/20/18 12:32 Historian: Patient - History of Present Illness Narrative History of Present Illness (Text): 09/20/18 19:45 62-year-old male with a history of anxiety and depression presents today for psychiatric evaluation. Patient is complaining of depression and anxiety. Patient states he does not have suicidal ideations at this moment but is concerned that his depression will lead to suicide at this point. He denies any plan for suicide. He denies headaches dizziness or weakness. No chest pain or shortness of breath. No fevers or chills. No urinary symptoms. No other complaints Past Medical History - Provider Review Nursing Documentation Reviewed: Yes Primary Care Provider: Non [facility] Provider, - Travel History Have you recently traveled outside [place] w/in the past 3 mons?: No - Infectious Disease Hx of Infectious Diseases: None - Cardiac Hx Cardiac Disorders: No Hx Hypertension: No - Pulmonary Hx Tuberculosis: No - Neurological HX Cerebrovascular Accident: No Hx Seizures: No - HEENT Hx HEENT Disorder: No - Renal Hx Renal Disorder: No - Endocrine/Metabolic Hx Endocrine Disorders: No - Hematological/Oncological Hx Cancer: No - Integumentary Hx Dermatological Disorder: Yes Other/Comment: Cellulitis of left lower extremity, Ulcerations to LLE - Musculoskeletal/Rheumatological Hx Musculoskeletal Disorders: No - Gastrointestinal Hx Gastritis: Yes - Genitourinary/Gynecological Hx Sexually Transmitted Diseases: No - Psychiatric Hx Anxiety: Yes Hx Bipolar Disorder: Yes Hx Depression: Yes Hx Schizophrenia: Yes (paranoid schizoprenia) Hx Substance Use: No - Surgical History Hx Appendectomy: Yes - Anesthesia Hx Anesthesia: Yes Hx Anesthesia Reactions: No Hx Malignant Hyperthermia: No Family/Social History - Physician Review Nursing Documentation Reviewed: Yes Family/Social History: Unknown Family HX Smoking Status: Light Smoker < 10 Cigarettes Daily Hx Alcohol Use: Yes Hx Substance Use: No Allergies/Home Meds Allergies/Adverse Reactions: Allergies ciprofloxacin [From Cipro] Allergy (Verified 09/15/18 23:13) RASH Review of Systems - Review of Systems Constitutional: absent: Fatigue, Fevers Respiratory: absent: SOB, Cough Cardiovascular: absent: Chest Pain, Palpitations Gastrointestinal: absent: Abdominal Pain, Constipation, Diarrhea, Vomiting Genitourinary Male: absent: Dysuria, Frequency, Hematuria Musculoskeletal: absent: Back Pain, Neck Pain Skin: absent: Rash, Pruritis Neurological: absent: Headache, Dizziness Psychiatric: Anxiety, Depression. absent: Suicidal Ideation Physical Exam Vital Signs Reviewed: Yes Vital Signs Temp Pulse Resp BP Pulse Ox 09/20/18 19:32 67 15 139/87 95 09/20/18 17:00 68 18 132/66 96 09/20/18 15:00 76 18 140/78 95 09/20/18 13:42 98.8 F 78 18 135/89 96 Temperature: Afebrile Blood Pressure: Normal Pulse: Regular Respiratory Rate: Normal Appearance: Positive for: Well-Appearing, Non-Toxic, Comfortable Pain Distress: None Mental Status: Positive for: Alert and Oriented X 3 - Systems Exam Head: Present: Atraumatic Mouth: Present: Moist Mucous Membranes Neck: Present: Normal Range of Motion Respiratory/Chest: Present: Clear to Auscultation, Good Air Exchange. No: Respiratory Distress, Accessory Muscle Use Cardiovascular: Present: Regular Rate and Rhythm, Normal S1, S2. No: Murmurs Abdomen: No: Tenderness Upper Extremity: Present: Normal ROM Lower Extremity: Present: Normal ROM Neurological: Present: GCS=15, Speech Normal Skin: Present: Warm, Dry, Normal Color. No: Rashes Psychiatric: Present: Alert, Oriented x 3, Depressed Mood Medical Decision Making ED Course and Treatment: 09/20/18 19:47 Patient is nontoxic well-appearing in no distress vital signs are stable. CBC WNL CMP WNL Tylenol WNL Salicylate WNL Alcohol level WNL Urine drug screen wnl UA; wnl cxr: FINDINGS: Study is somewhat limited due to patient rotation to the right LUNGS: Mild bibasilar atelectasis PLEURA: No significant pleural effusion identified, no pneumothorax apparent. CARDIOVASCULAR: Aorta slightly ectatic and uncoiled. No aortic atherosclerotic calcification present. Heart size upper limits of normal no pulmonary vascular congestion. OSSEOUS STRUCTURES: No significant abnormalities. VISUALIZED UPPER ABDOMEN: Normal. OTHER FINDINGS: None. IMPRESSION: Mild bibasilar atelectasis. ekg: NSR at 70b/m no st elevations. normal axis. pt is medically cleared for PES evaluation Patient was seen and evaluated by PES screener: Matt Patient signed voluntarily to psychiatric floor Impression; depression admit behavioral health floor. - Lab Interpretations Lab Results: Total Bilirubin 0.7 mg/dL (0.2-1.3) 09/20/18 19:07 AST 25 U/L (17-59) 09/20/18 19:07 ALT 25 U/L (7-56) 09/20/18 19:07 Alkaline Phosphatase 84 U/L (38-126) 09/20/18 19:07 Total Protein 7.5 g/dL (5.8-8.3) 09/20/18 19:07 Albumin 4.2 g/dL (3.0-4.8) 09/20/18 19:07 Globulin 3.3 gm/dL 09/20/18 19:07 Albumin/Globulin Ratio 1.3 (1.1-1.8) 09/20/18 19:07 Urine Color Yellow (YELLOW) 09/20/18 14:50 Urine Appearance Clear (CLEAR) 09/20/18 14:50 Urine pH 6.0 (4.7-8.0) 09/20/18 14:50 Ur Specific [place] 1.020 (1.005-1.035) 09/20/18 14:50 Urine Protein Negative mg/dL (<30 mg/dL) 09/20/18 14:50 Urine Glucose (UA) Negative mg/dL (NEGATIVE) 09/20/18 14:50 Urine Ketones Negative mg/dL (NEGATIVE) 09/20/18 14:50 Urine Blood Negative (NEGATIVE) 09/20/18 14:50 Urine Nitrate Negative (NEGATIVE) 09/20/18 14:50 Urine Bilirubin Negative (NEGATIVE) 09/20/18 14:50 Urine Urobilinogen 0.2 E.U./dL (<1 E.U./dL) 09/20/18 14:50 Ur Leukocyte Esterase Negative Cammie/uL (NEGATIVE) 09/20/18 14:50 - RAD Interpretation Radiology Orders: 09/20/18 14:34 CHEST PORTABLE [RAD] Stat Disposition/Present on Arrival - Present on Arrival Any Indicators Present on Arrival: Yes History of DVT/PE: Yes History of Uncontrolled Diabetes: No Urinary Catheter: No History of Decub. Ulcer: No History Surgical Site Infection Following: None - Disposition Have Diagnosis and Disposition been Completed?: Yes Diagnosis: Depression Disposition: HOSPITALIZED Disposition Time: 19:48 Patient Plan: Admission Condition: GOOD
[2018-09-20] MEDS ORDERED: Alum-Mag Hydrox-Simethicone Susp (30 mL) PO PRN (22:01)
[2018-09-20] MEDS ORDERED: Magnesium Hydroxide Susp 30 ml UD PO PRN (22:01)
[2018-09-20 22:43] VITALS: O2SAT 97
--- NOTE | 2018-09-20 23:13 | PCM.BM ---
<Paco Barber - Last Filed: 09/20/18 23:07> Treatment Plan Problems - Problems identified on initial assessmt suicidal ideation Date Initiated: 09/20/18 Time Initiated: 23:07 Assessment reference: NA Status: Active salf harm Date Initiated: 09/20/18 Time Initiated: 23:07 Assessment reference: NA Status: Active salf care deficit Date Initiated: 09/20/18 Time Initiated: 23:08 Assessment reference: NA Status: Active Treatment assets and liabiliti Patient Assests: cooperative, educated, negotiates basic needs Patient Liabilities: poor support system, medical problems, other (homeless) - Milieu Protocol Maintain good personal hygiene: daily Encourage regular showers, daily Remind patient to perform daily oral care, daily Assist patient to perform ADL's Conduct patient checks and document Observation sheet: Q15 minutes Maintain personal safety: every shift Educate patient to report safety concerns to staff, every shift Monitor environment for contraband/sharps Medication safety: Monitor for expected outcome, potential side effects: every shift, Assess barriers to learning: every shift, Assess readiness for medication education: every shift Family Contact Family involvement: Patient does not wish Family/SO involvement Discharge/Continuing Care - Education Needs Education Needs: Patient Medication, Patient Diagnosis/Disease Process, Patient Coping Skills, Patient Community resources, Patient Activities of Daily Living, Patient Nutrition, Patient Health Practices/Safety, Patient Personal Hyg iene/Grooming, Patient Aftercare Safety Plan - Discharge Discharge Criteria: Tolerates medication w/o severe side effects, Free of Suicidal thoughts, Ability to care for self, No longer exhibiting s/s of withdrawal, Reduction of target symptoms Discharge to:: Half-Way, Other <Michelle Beasley - Last Filed: 09/21/18 13:25> - Diagnosis (1) Schizoaffective disorder Status: Acute Interventions: 09/21/18 13:26 Psychoeducation/psychotherapy Psychopharmacology/adjustment of medications as needed/ monitoring possible side effects Evaluate pt on daily basis Compliance with medications and follow up appointments Long acting medication if pt is noncompliant with pill form Suicide and homicide risk assessment and prevention, coping strategies, safety plan Relapse prevention Reduction of symptoms Improve functional status Possible assertive community treatment Cognitive behavioral therapy Family involvement Possible social skill training as outpatient (2) PTSD (post-traumatic stress disorder) Status: Acute Interventions: 09/21/18 13:27 Psychoeducation Psychopharmacology/adjustment of medications as needed/ monitoring possible side effects Evaluate pt on daily basis Discussion of importance of being compliant with medications and follow up appointments Suicide and homicide risk assessment and prevention, coping strategies, safety plan Reduction of symptoms Relaxation techniques and breathing exercises Improve functional status Family involvement Cognitive behavioral therapy as outpatient <Madai Bateman Y - Last Filed: 09/23/18 16:57> Family Contact Family involvement: Famliy/SO not involved
[2018-09-21 07:51] LABS: GLUCOSE,FASTING 92 mg/dL (65-110); HDL CHOLESTEROL 49 mg/dL (29-60)
[2018-09-21 08:02] LABS: LDL CHOLESTEROL 78 mg/dL (0-129)
[2018-09-21] MEDS: Multivitamin Therapeutic Tab PO SCH (09:06)
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
[2018-09-22] MEDS: Multivitamin Therapeutic Tab PO SCH (09:08)
--- NOTE | 2018-09-22 13:13 | PCM.PYCHPN ---
Psychiatric Progress Note - Psychiatric Progress Note Patient seen today, length of contact: 30min Patient Chief Complaint: "I still hear voices calling me to go, I am also very depressed" Problems Identified/Issues Discussed: Treatment plan,risk/benefits/alternatives of the medications, aftercare plan. Medical Problems: See HPI Diagnostic Results: 09/20/18 19:07 09/20/18 19:07 Lab Results 09/21/18 07:15: RPR Nonreactive 09/21/18 07:15: TSH 3rd Generation 2.25 09/21/18 07:15: Fasting Glucose 92, Triglycerides 105, Cholesterol 144, LDL Cholesterol Direct 78, HDL Cholesterol 49 09/20/18 19:07: Alcohol, Quantitative < 10 09/20/18 19:07: Sodium 137, Potassium 3.8, Chloride 104, Carbon Dioxide 25, Anion Gap 12, BUN 14, Creatinine 0.8, Est GFR ( Amer) > 60, Est GFR (Non- Af Amer) > 60, Random Glucose 93, Calcium 9.0, Total Bilirubin 0.7, AST 25, ALT 25, Alkaline Phosphatase 84, Total Protein 7.5, Albumin 4.2, Globulin 3.3, Albumin/Globulin Ratio 1.3 09/20/18 19:07: WBC 4.2 L, RBC 4.73, Hgb 14.6, Hct 42.1, MCV 89.0, MCH 30.9, MCHC 34.7, RDW 12.9, Plt Count 155, MPV 9.3, Neut % (Auto) 40.1 L, Lymph % (Auto) 39.5 H, [place] % (Auto) 11.0 H, Eos % (Auto) 8.4 H, Baso % (Auto) 1.0, Lymph # (Auto) 1.7, [place] # (Auto) 0.5, Eos # (Auto) 0.4, Baso # (Auto) 0.04, Absolute Neuts (auto) 1.68 09/20/18 19:07: Salicylates < 1 L, Acetaminophen < 10.0 L 09/20/18 16:02: Urine Opiates Screen Negative, Urine Methadone Screen Negative, Ur Barbiturates Screen Negative, Ur Phencyclidine Scrn Negative, Ur Amphetamines Screen Negative, U Benzodiazepines Scrn Negative, U Oth Cocaine Metabols Negative, U Cannabinoids Screen Negative 09/20/18 14:50: Urine Color Yellow, Urine Appearance Clear, Urine pH 6.0, Ur Specific [place] 1.020, Urine Protein Negative, Urine Glucose (UA) Negative, Urine Ketones Negative, Urine Blood Negative, Urine Nitrate Negative, Urine Bilirubin Negative, Urine Urobilinogen 0.2, Ur Leukocyte Esterase Negative Vital Signs Temp Pulse Resp BP Pulse Ox 09/22/18 09:10 152/80 H 09/22/18 07:30 98.2 F 65 20 152/80 H 09/21/18 20:00 98.2 F 68 18 138/82 09/21/18 16:00 72 18 139/88 09/21/18 12:00 97.2 F L 76 20 147/88 09/21/18 08:57 147/88 09/21/18 08:00 98.4 F 78 20 104/65 09/21/18 07:24 98.0 F 78 20 147/88 09/21/18 00:00 98.0 F 65 18 140/86 09/20/18 22:42 98.0 F 63 16 144/82 97 09/20/18 19:32 67 15 139/87 95 09/20/18 17:00 68 18 132/66 96 09/20/18 15:00 76 18 140/78 95 09/20/18 13:42 98.8 F 78 18 135/89 96 DSM 5 Symptoms Update: Shortly patient 62-year-old male with reported history of schizophrenia versus schizoaffective disorder, at least 5 previous psychiatric admissions, most recent was [place] about 3 years ago, patient reported being compliant with the medications, patient brought himself to the hospital for evaluation stabilization of depressive symptoms, suicidal ideation with plan to cut his wrist, patient requires further evaluation stabilization and medications adjustment. Patient was seen and examined at the day treatment area, patient presented with very poor personal hygiene, malodorous, disheveled. Fair ADLs. Patient reported being depressed, patient still hear voices calling him to go somewhere. Patient appears to be guarded, flat affect, but overall was pleasant. As per staff patient is visible in the unit, appears to be mildly disorganized, but not agitated or aggressive. Patient was seen by medical team, please see notes for more detailed information. So far patient tolerates medications well, no side effects observed or reported, aims 0, no EPS. DSM 5 Diagnosis: As per history of schizophrenia versus schizoaffective disorder r/o PTSD Medication Change: Yes (lexapro started) Medical Record Reviewed: Yes Consults ordered or reviewed: med consult appreciated Mental Status Examination - Cognitive Function Orientation: Person, Place, Situation Memory: Impaired Attention: Poor Concentration: Poor Association: Loose Fund of Knowledge: Poor - Mood Mood: Depressed, Anxious - Affect Affect: Constricted, Flat - Formal Thought Process Formal Thought Process: Hallucinations, Delusions, Paranoia - Suicidal Ideation Suicidal Ideation: No - Homicidal Ideation Homicidal Ideation: No Goal/Treatment Plan - Goal/Treatment Plan Need for Continued Stay: Remain at risks for inpatient hospitalization, Severe depression anxiety, Discharge may exacerbated symptoms, Severe functional impairment Progress Toward Problem(s) and Goals/Treatment Plan: Milieu/structure/supportive therapy SW consultation for discharge plan and social issues Med management Risperdal resumed 1mg po bid and hs for psychosis Lexapro will be increased 10daily for depression/anxiety Family involvement Follow up on labs Will monitor closely Pt was educated about risk/benefits and alternatives of medications, coping strategies (safety plan, suicide prevention), relapse prevention, importance of follow up with psychiatrist and therapist, stay away from drugs/alcohol/smoking Estimated Date of D/C: 09/30/18
[2018-09-23] MEDS: Multivitamin Therapeutic Tab PO SCH (08:55)
--- NOTE | 2018-09-23 14:05 | PCM.PYCHPN ---
Psychiatric Progress Note - Psychiatric Progress Note Patient seen today, length of contact: 30min Patient Chief Complaint: "I am so-so..." Problems Identified/Issues Discussed: Treatment plan,risk/benefits/alternatives of the medications, aftercare plan. Medical Problems: See HPI Diagnostic Results: 09/20/18 19:07 09/20/18 19:07 Lab Results 09/21/18 07:15: RPR Nonreactive 09/21/18 07:15: TSH 3rd Generation 2.25 09/21/18 07:15: Fasting Glucose 92, Triglycerides 105, Cholesterol 144, LDL Cholesterol Direct 78, HDL Cholesterol 49 09/20/18 19:07: Alcohol, Quantitative < 10 09/20/18 19:07: Sodium 137, Potassium 3.8, Chloride 104, Carbon Dioxide 25, Anion Gap 12, BUN 14, Creatinine 0.8, Est GFR ( Amer) > 60, Est GFR (Non- Af Amer) > 60, Random Glucose 93, Calcium 9.0, Total Bilirubin 0.7, AST 25, ALT 25, Alkaline Phosphatase 84, Total Protein 7.5, Albumin 4.2, Globulin 3.3, Albumin/Globulin Ratio 1.3 09/20/18 19:07: WBC 4.2 L, RBC 4.73, Hgb 14.6, Hct 42.1, MCV 89.0, MCH 30.9, MCHC 34.7, RDW 12.9, Plt Count 155, MPV 9.3, Neut % (Auto) 40.1 L, Lymph % (Auto) 39.5 H, [place] % (Auto) 11.0 H, Eos % (Auto) 8.4 H, Baso % (Auto) 1.0, Lymph # (Auto) 1.7, [place] # (Auto) 0.5, Eos # (Auto) 0.4, Baso # (Auto) 0.04, Absolute Neuts (auto) 1.68 09/20/18 19:07: Salicylates < 1 L, Acetaminophen < 10.0 L 09/20/18 16:02: Urine Opiates Screen Negative, Urine Methadone Screen Negative, Ur Barbiturates Screen Negative, Ur Phencyclidine Scrn Negative, Ur Amphetamines Screen Negative, U Benzodiazepines Scrn Negative, U Oth Cocaine Metabols Negative, U Cannabinoids Screen Negative 09/20/18 14:50: Urine Color Yellow, Urine Appearance Clear, Urine pH 6.0, Ur Specific [place] 1.020, Urine Protein Negative, Urine Glucose (UA) Negative, Urine Ketones Negative, Urine Blood Negative, Urine Nitrate Negative, Urine Bilirubin Negative, Urine Urobilinogen 0.2, Ur Leukocyte Esterase Negative Vital Signs Temp Pulse Resp BP Pulse Ox 09/22/18 09:10 152/80 H 09/22/18 07:30 98.2 F 65 20 152/80 H 09/21/18 20:00 98.2 F 68 18 138/82 09/21/18 16:00 72 18 139/88 09/21/18 12:00 97.2 F L 76 20 147/88 09/21/18 08:57 147/88 09/21/18 08:00 98.4 F 78 20 104/65 09/21/18 07:24 98.0 F 78 20 147/88 09/21/18 00:00 98.0 F 65 18 140/86 09/20/18 22:42 98.0 F 63 16 144/82 97 09/20/18 19:32 67 15 139/87 95 09/20/18 17:00 68 18 132/66 96 09/20/18 15:00 76 18 140/78 95 09/20/18 13:42 98.8 F 78 18 135/89 96 DSM 5 Symptoms Update: Shortly patient 62-year-old male with reported history of schizophrenia versus schizoaffective disorder, at least 5 previous psychiatric admissions, most recent was [place] about 3 years ago, patient reported being compliant with the medications, patient brought himself to the hospital for evaluation stabilization of depressive symptoms, suicidal ideation with plan to cut his wrist, patient requires further evaluation stabilization and medications adjustment. Patient was seen and examined in his room, patient still presented with very poor personal hygiene, malodorous, disheveled. Patient reported being depressed, patient still hear voices calling him to go somewhere. Patient appears to be guarded, flat affect, but overall was pleasant. As per staff patient today pt was staying in his room, appears to be mildly d isorganized, but not agitated or aggressive. Patient was seen by medical team, please see notes for more detailed information. So far patient tolerates medications well, no side effects observed or reported, aims 0, no EPS. DSM 5 Diagnosis: As per history of schizophrenia versus schizoaffective disorder r/o PTSD Medication Change: Yes (risperdal increased ) Medical Record Reviewed: Yes Consults ordered or reviewed: med consult appreciated Mental Status Examination - Cognitive Function Orientation: Person, Place, Situation Memory: Impaired Attention: Poor Concentration: Poor Association: Loose Fund of Knowledge: Poor - Mood Mood: Depressed, Anxious - Affect Affect: Constricted, Flat - Formal Thought Process Formal Thought Process: Hallucinations, Delusions, Paranoia - Suicidal Ideation Suicidal Ideation: No - Homicidal Ideation Homicidal Ideation: No Goal/Treatment Plan - Goal/Treatment Plan Need for Continued Stay: Remain at risks for inpatient hospitalization, Severe depression anxiety, Discharge may exacerbated symptoms, Severe functional impairment Progress Toward Problem(s) and Goals/Treatment Plan: Milieu/structure/supportive therapy SW consultation for discharge plan and social issues Med management Risperdal resumed 1mg po bid and 2mg hs for psychosis Lexapro will be increased 10daily for depression/anxiety Family involvement Follow up on labs Will monitor closely Pt was educated about risk/benefits and alternatives of medications, coping strategies (safety plan, suicide prevention), relapse prevention, importance of follow up with psychiatrist and therapist, stay away from drugs/alcohol/smoking Estimated Date of D/C: 09/30/18
[2018-09-24] MEDS: Multivitamin Therapeutic Tab PO SCH (08:53)
--- NOTE | 2018-09-24 09:41 | PCM.PYCHPN ---
Psychiatric Progress Note - Psychiatric Progress Note Patient seen today, length of contact: 30min Problems Identified/Issues Discussed: I reviewed assessment and recent notes. I met with patient at bedside. Grooming is unkempt and patient is quiet and superficially cooperative with questioning. Oriented x3 and coherent. Patient reports some improvement and feels his medications have been beneficial. Affect is constricted and artificially bright. Indicates that he is feeling more and more prepared for discharge but "not there yet". Requesting discharge on 09/27/18. Patient denies experiencing any hallucinations recently "not anymore" and doesn't appear to be responding to internal stimuli. Per staff, patient still spends most of his time in his room. He doesn't engage or interact with group activities even with encouragement. He has been compliant with his medications. There were no major behavioral issues overnight. Diagnostic Results: As per history of schizophrenia versus schizoaffective disorder r/o PTSD Medication Change: No ( ) Medical Record Reviewed: Yes Mental Status Examination - Cognitive Function Orientation: Person, Place, Situation Memory: Impaired Attention: WNL Concentration: Poor Association: Loose Fund of Knowledge: Poor - Mood Mood: Depressed (better), Anxious - Affect Affect: Constricted, Flat - Speech Speech: Appropriate - Formal Thought Process Formal Thought Process: Hallucinations (denied today), Delusions, Paranoia (improving) - Suicidal Ideation Suicidal Ideation: No - Homicidal Ideation Homicidal Ideation: No Goal/Treatment Plan - Goal/Treatment Plan Need for Continued Stay: Remain at risks for inpatient hospitalization, Severe depression anxiety, Discharge may exacerbated symptoms, Severe functional impairment Progress Toward Problem(s) and Goals/Treatment Plan: * c/w current tx and plan * Vitals reviewed and noted below: 09/23/18 09/23/18 07:18 16:00 Temperature 97.6 F Pulse Rate 65 61 Respiratory 20 Rate Blood Pressure 148/88 105/69 * No new weekend lab results noted thus far Estimated Date of D/C: 09/30/18
[2018-09-25] MEDS: Multivitamin Therapeutic Tab PO SCH (09:21)
--- NOTE | 2018-09-25 09:25 | PCM.PYCHPN ---
Psychiatric Progress Note - Psychiatric Progress Note Patient seen today, length of contact: 30min Problems Identified/Issues Discussed: I reviewed recent notes and met with patient at bedside. Grooming is unkempt and patient is quiet and superficially cooperative with questioning. Oriented x3 and coherent. Patient reports some improvement and feels his medications have been beneficial. Affect is constricted and artificially bright. Indicates that he is feeling more and more prepared for discharge but "not there yet". He still has bouts of anxiety {received ativan 1 mg x1 on 09/24/18). He is requesting discharge for 09/26/18 or 09/27/18. Patient denies experiencing any hallucinations recently "not anymore" and doesn't appear to be responding to internal stimuli. Per staff, patient still spends most of his time in his room. He doesn't engage or interact with group activities even with encouragement though appears brighter during direct 1:1 interactions. He has been compliant with his medications. There were no major behavioral issues over the weekend. Diagnostic Results: As per history of schizophrenia versus schizoaffective disorder r/o PTSD Medication Change: No ( ) Medical Record Reviewed: Yes Mental Status Examination - Cognitive Function Orientation: Person, Place, Situation Memory: Impaired Attention: WNL Concentration: Poor Association: Loose Fund of Knowledge: Poor - Mood Mood: Depressed (better), Anxious - Affect Affect: Constricted, Flat - Speech Speech: Appropriate - Formal Thought Process Formal Thought Process: Hallucinations ( "not anymore" ), Delusions, Paranoia (improving) - Suicidal Ideation Suicidal Ideation: No - Homicidal Ideation Homicidal Ideation: No Goal/Treatment Plan - Goal/Treatment Plan Need for Continued Stay: Remain at risks for inpatient hospitalization, Severe depression anxiety, Discharge may exacerbated symptoms, Severe functional impairment Progress Toward Problem(s) and Goals/Treatment Plan: * c/w current tx and plan * Vitals reviewed and noted below: Selected Entries 09/24/18 09/24/18 08:00 16:02 Temperature 97.4 F L Pulse Rate 76 76 Respiratory 18 Rate Blood Pressure 130/80 119/74 * No new weekend lab results noted Estimated Date of D/C: 09/30/18
[2018-09-26] MEDS: Multivitamin Therapeutic Tab PO SCH (08:28)
--- NOTE | 2018-09-26 14:16 | PCM.PYCHPN ---
Psychiatric Progress Note - Psychiatric Progress Note Patient seen today, length of contact: 30min Patient Chief Complaint: "I am feeling better, I want to be discharged on my [birth year] which is [birth year]" Problems Identified/Issues Discussed: Treatment plan,risk/benefits/alternatives of the medications, aftercare plan. Medical Problems: See HPI Diagnostic Results: 09/20/18 19:07 09/20/18 19:07 Lab Results 09/21/18 07:15: RPR Nonreactive 09/21/18 07:15: TSH 3rd Generation 2.25 09/21/18 07:15: Fasting Glucose 92, Triglycerides 105, Cholesterol 144, LDL Cholesterol Direct 78, HDL Cholesterol 49 09/20/18 19:07: Alcohol, Quantitative < 10 09/20/18 19:07: Sodium 137, Potassium 3.8, Chloride 104, Carbon Dioxide 25, Anion Gap 12, BUN 14, Creatinine 0.8, Est GFR ( Amer) > 60, Est GFR (Non- Af Amer) > 60, Random Glucose 93, Calcium 9.0, Total Bilirubin 0.7, AST 25, ALT 25, Alkaline Phosphatase 84, Total Protein 7.5, Albumin 4.2, Globulin 3.3, Albumin/Globulin Ratio 1.3 09/20/18 19:07: WBC 4.2 L, RBC 4.73, Hgb 14.6, Hct 42.1, MCV 89.0, MCH 30.9, MCHC 34.7, RDW 12.9, Plt Count 155, MPV 9.3, Neut % (Auto) 40.1 L, Lymph % (Auto) 39.5 H, [place] % (Auto) 11.0 H, Eos % (Auto) 8.4 H, Baso % (Auto) 1.0, Lymph # (Auto) 1.7, [place] # (Auto) 0.5, Eos # (Auto) 0.4, Baso # (Auto) 0.04, Absolute Neuts (auto) 1.68 09/20/18 19:07: Salicylates < 1 L, Acetaminophen < 10.0 L 09/20/18 16:02: Urine Opiates Screen Negative, Urine Methadone Screen Negative, Ur Barbiturates Screen Negative, Ur Phencyclidine Scrn Negative, Ur Amphetamines Screen Negative, U Benzodiazepines Scrn Negative, U Oth Cocaine Metabols Negative, U Cannabinoids Screen Negative 09/20/18 14:50: Urine Color Yellow, Urine Appearance Clear, Urine pH 6.0, Ur S pecific [place] 1.020, Urine Protein Negative, Urine Glucose (UA) Negative, Urine Ketones Negative, Urine Blood Negative, Urine Nitrate Negative, Urine Bilirubin Negative, Urine Urobilinogen 0.2, Ur Leukocyte Esterase Negative Vital Signs Temp Pulse Resp BP Pulse Ox 09/22/18 09:10 152/80 H 09/22/18 07:30 98.2 F 65 20 152/80 H 09/21/18 20:00 98.2 F 68 18 138/82 09/21/18 16:00 72 18 139/88 09/21/18 12:00 97.2 F L 76 20 147/88 09/21/18 08:57 147/88 09/21/18 08:00 98.4 F 78 20 104/65 09/21/18 07:24 98.0 F 78 20 147/88 09/21/18 00:00 98.0 F 65 18 140/86 09/20/18 22:42 98.0 F 63 16 144/82 97 09/20/18 19:32 67 15 139/87 95 09/20/18 17:00 68 18 132/66 96 09/20/18 15:00 76 18 140/78 95 09/20/18 13:42 98.8 F 78 18 135/89 96 DSM 5 Symptoms Update: Shortly patient 62-year-old male with reported history of schizophren ia versus schizoaffective disorder, at least 5 previous psychiatric admissions, most recent was [place] about 3 years ago, patient reported being compliant with the medications, patient brought himself to the hospital for evaluation stabilization of depressive symptoms, suicidal ideation with plan to cut his wrist, patient requires further evaluation stabilization and medications adjustment. Patient was seen and examined at the treatment team meeting, patient presented with some improvement of personal hygiene, patient did not have any strong body odor, but appears to be careless about his appearance. Patient reported that she had a good night sleep, patient reported that his weekend was "good", patient denied thoughts of harming himself or others, reported that he tolerates medications well. Over the weekend patient did not exhibit any aggressive or agitated behavior, was compliant with the medications, unit rules and regulations. Patient was seen by medical team as well as podiatry team please see notes for more detailed information. So far patient tolerates medications well, no side effects observed or reported, aims 0, no EPS. DSM 5 Diagnosis: As per history of schizophrenia versus schizoaffective disorder r/o PTSD Medication Change: Yes (Ativan discontinued) Medical Record Reviewed: Yes Consults ordered or reviewed: med consult appreciated Podiatry consult appreciated Mental Status Examination - Cognitive Function Orientation: Person, Place, Situation Memory: Intact Attention: WNL Concentration: Poor (Some improvement) Association: WNL Fund of Knowledge: Poor - Mood Mood: Depressed (better), Anxious ("I am not anxious, I am fine") - Affect Affect: Constricted ( but more reactive and mood congruent) - Speech Speech: Appropriate - Formal Thought Process Formal Thought Process: Hallucinations ( "not anymore" ), Delusions (None elicited), Paranoia (improving) - Suicidal Ideation Suicidal Ideation: No - Homicidal Ideation Homicidal Ideation: No Goal/Treatment Plan - Goal/Treatment Plan Need for Continued Stay: Remain at risks for inpatient hospitalization, Severe depression anxiety, Discharge may exacerbated symptoms, Severe functional impairment Progress Toward Problem(s) and Goals/Treatment Plan: Milieu/structure/supportive therapy SW consultation for discharge plan and social issues Med management Risperdal 2mg amhs for psychosis Lexapro 10daily for depression/anxiety Ativan discontinued Family involvement Follow up on labs Will monitor closely Pt was educated about risk/benefits and alternatives of medications, coping strategies (safety plan, suicide prevention), relapse prevention, importance of follow up with psychiatrist and therapist, stay away from drugs/alcohol/smoking Estimated Date of D/C: 09/30/18
[2018-09-26 16:02] VITALS: RESP 18; TEMP 97.6
[2018-09-26 16:56] VITALS: PULSE 69
[2018-09-27] MEDS: Multivitamin Therapeutic Tab PO SCH (09:27)
[2018-09-27 09:28] VITALS: BP 137/79
--- NOTE | 2018-09-27 13:16 | PCM.BM ---
<Sanjuana Shea - Last Filed: 09/27/18 13:16> Treatment Plan Problems - Problems identified on initial assessmt suicidal ideation Date Initiated: 09/20/18 (d/c home.mood and affect brighter) Time Initiated: 23:07 Date resolved: 09/27/18 Assessment reference: NA Status: Active salf harm Date Initiated: 09/20/18 Time Initiated: 23:07 Date resolved: 09/27/18 Assessment reference: NA Status: Active salf care deficit Date Initiated: 09/20/18 Time Initiated: 23:08 Date resolved: 09/27/18 Assessment reference: NA Status: Active Treatment assets and liabiliti Patient Assests: cooperative, educated, negotiates basic needs Patient Liabilities: poor support system, medical problems, other (homeless) - Milieu Protocol Maintain good personal hygiene: daily Encourage regular showers, daily Remind patient to perform daily oral care, daily Assist patient to perform ADL's Conduct patient checks and document Observation sheet: Q15 minutes Maintain personal safety: every shift Educate patient to report safety concerns to staff, every shift Monitor environment for contraband/sharps Medication safety: Monitor for expected outcome, potential side effects: every shift, Assess barriers to learning: every shift, Assess readiness for medication education: every shift Milieu Narrative: Milieu/structure/supportive therapy SW consultation for discharge plan and social issues Med management Risperdal 2mg amhs for psychosis Lexapro 10daily for depression/anxiety Ativan discontinued Family involvement Follow up on labs Will monitor closely Pt was educated about risk/benefits and alternatives of medications, coping strategies (safety plan, suicide prevention), relapse prevention, importance of follow up with psychiatrist and therapist, stay away from drugs/alcohol/smoking Family Contact Family involvement: Famliy/SO not involved - Goals for Treatment Patient goals for treatment: "I need to find housing." Discharge/Continuing Care - Education Needs Education Needs: Patient Medication, Patient Diagnosis/Disease Process, Patient Coping Skills, Patient Community resources, Patient Activities of Daily Living, Patient Nutrition, Patient Health Practices/Safety, Patient Personal Hygiene/Grooming, Patient Aftercare Safety Plan - Discharge Discharge Criteria: Tolerates medication w/o severe side effects, Free of Suicidal thoughts, Ability to care for self, No longer exhibiting s/s of withdrawal, Reduction of target symptoms Discharge to:: [facility], Other - Treatment Team Participation Patient/Family/SO Statement: Milieu/structure/supportive therapy SW consultation for discharge plan and social issues Med management Risperdal 2mg amhs for psychosis Lexapro 10daily for depression/anxiety Ativan discontinued Family involvement Follow up on labs Will monitor closely Pt was educated about risk/benefits and alternatives of medications, coping s trategies (safety plan, suicide prevention), relapse prevention, importance of follow up with psychiatrist and therapist, stay away from drugs/alcohol/smoking Treatment Plan Review - Problem suicidal ideation Time Initiated: 23:07 salf harm Time Initiated: 23:07 salf care deficit Time Initiated: 23:08 <Michelle Beasley A - Last Filed: 09/27/18 14:37> - Diagnosis (1) Schizoaffective disorder Status: Acute Interventions: 09/27/18 14:37 Patient was compliant with his medications, tolerated them well, psychosis improved. Patient denied thoughts of harming himself or others, denied any active psychotic symptoms (2) PTSD (post-traumatic stress disorder) Status: Acute Interventions: 09/27/18 14:37 Improved
--- NOTE | 2018-09-27 15:39 | PCM.PYCHDC ---
Mental Status Examination - Mental Status Examination Orientation: Person, Place, Situation, Time Memory: Intact Mood: Neutral Affect: Constricted (But reactive and mood congruent) Speech: Appropriate Attention: WNL Concentration: WNL Association: Loose (Seems to be baseline) Fund of Knowledge: WNL Formal Thought Process: No Impairment (But thought process mildly disorganized seems to be a chronic) Description of patient's judgement and insight: Patient has improved insight into his mental illness, was compliant with medications and unit rules and regulations, no agitation no aggression. Psychotic Thoughts and Behaviors: Psychosis improved, at the time of discharge patient denied hearing voices or seeing things does not appear to be internally preoccupied or responding to internal stimuli. , Suicidal Ideation: No Current Homicidal Ideation?: No Plan: Patient denied thoughts of harming himself or others, denied intent or plan. Discharge Plan - Discharge Note Reason for Hospitalization: Patient was admitted for evaluation and stabilization of depressive symptoms possible suicidal ideation as well as psychosis. Psychiatric History (includes Medical, Family, Personal Hx): See HPI Laboratory Data: 09/20/18 19:07 09/20/18 19:07 Lab Results 09/21/18 07:15: RPR Nonreactive 09/21/18 07:15: TSH 3rd Generation 2.25 09/21/18 07:15: Fasting Glucose 92, Triglycerides 105, Cholesterol 144, LDL Cholesterol Direct 78, HDL Cholesterol 49 09/20/18 19:07: Alcohol, Quantitative < 10 09/20/18 19:07: Sodium 137, Potassium 3.8, Chloride 104, Carbon Dioxide 25, Anion Gap 12, BUN 14, Creatinine 0.8, Est GFR ( Amer) > 60, Est GFR (Non- Af Amer) > 60, Random Glucose 93, Calcium 9.0, Total Bilirubin 0.7, AST 25, ALT 25, Alkaline Phosphatase 84, Total Protein 7.5, Albumin 4.2, Globulin 3.3, Albumin/Globulin Ratio 1.3 09/20/18 19:07: WBC 4.2 L, RBC 4.73, Hgb 14.6, Hct 42.1, MCV 89.0, MCH 30.9, MCHC 34.7, RDW 12.9, Plt Count 155, MPV 9.3, Neut % (Auto) 40.1 L, Lymph % (Auto) 39.5 H, [place] % (Auto) 11.0 H, Eos % (Auto) 8.4 H, Baso % (Auto) 1.0, Lymph # (Auto) 1.7, [place] # (Auto) 0.5, Eos # (Auto) 0.4, Baso # (Auto) 0.04, Absolute Neuts (auto) 1.68 09/20/18 19:07: Salicylates < 1 L, Acetaminophen < 10.0 L 09/20/18 16:02: Urine Opiates Screen Negative, Urine Methadone Screen Negative, Ur Barbiturates Screen Negative, Ur Phencyclidine Scrn Negative, Ur Amphetamines Screen Negative, U Benzodiazepines Scrn Negative, U Oth Cocaine Metabols Negative, U Cannabinoids Screen Negative 09/20/18 14:50: Urine Color Yellow, Urine Appearance Clear, Urine pH 6.0, Ur Specific [place] 1.020, Urine Protein Negative, Urine Glucose (UA) Negative, Urine Ketones Negative, Urine Blood Negative, Urine Nitrate Negative, Urine Bilirubin Negative, Urine Urobilinogen 0.2, Ur Leukocyte Esterase Negative Vital Signs Temp Pulse Resp BP Pulse Ox 09/27/18 09:22 137/79 09/26/18 16:00 69 110/73 09/26/18 10:00 97.6 F 68 18 128/64 09/26/18 08:26 126/72 09/26/18 07:47 97.3 F L 56 L 20 122/69 09/25/18 16:41 59 L 100/54 L 09/25/18 10:00 97.2 F L 60 18 122/68 09/25/18 09:23 117/71 09/25/18 07:32 98.0 F 66 20 117/71 09/24/18 16:02 76 119/74 09/24/18 08:52 130/80 09/24/18 08:00 97.4 F L 76 18 130/80 09/24/18 06:57 97.9 F 76 18 130/80 09/23/18 16:00 61 105/69 09/23/18 08:56 148/88 09/23/18 07:18 97.6 F 65 20 148/88 09/22/18 20:00 98.2 F 16 L 128/80 09/22/18 16:00 72 119/75 09/22/18 09:10 152/80 H 09/22/18 07:30 98.2 F 65 20 152/80 H 09/21/18 20:00 98.2 F 68 18 138/82 09/21/18 16:00 72 18 139/88 09/21/18 12:00 97.2 F L 76 20 147/88 09/21/18 08:57 147/88 09/21/18 08:00 98.4 F 78 20 104/65 09/21/18 07:24 98.0 F 78 20 147/88 09/21/18 00:00 98.0 F 65 18 140/86 09/20/18 22:42 98.0 F 63 16 144/82 97 09/20/18 19:32 67 15 139/87 95 09/20/18 17:00 68 18 132/66 96 09/20/18 15:00 76 18 140/78 95 09/20/18 13:42 98.8 F 78 18 135/89 96 Consultations:: List each consultation separately and include: 1. Reason for request. 2. Findings. 3. Follow-up Consultations: med consult appreciated Podiatry consult appreciated Please see notes for more detailed information Summary of Hospital Course include:: 1. Description of specific treatment plan utilized for patients during their course of treatmen. 2. Summarize the time- course for resolution of acute symptoms and/or regressed behaviors. 3. Describe issues identified and worked on during hospitalization. 4. Describe medication utilized. 5. Describe medical problems identified and treated. 6. Reassessment of suicide risk Summary of Hospital Course: Shortly patient 62-year-old male with reported history of schizophrenia versus schizoaffective disorder, at least 5 previous psychiatric admissions, most recent was [facility] about 3 years ago, patient reported being compliant with the medications, patient brought himself to the hospital for evaluation stabilization of depressive symptoms, suicidal ideation with plan to cut his wrist, patient required further evaluation stabilization and medications adjustment. Patient was stabilized and the following medications: Lexapro 10 mg daily for depression anxiety Risperdal 2 mg twice a day for psychosis Trazodone 50 mg at the nighttime as needed for insomnia as well as depression Patient tolerated medications well, no side effects observed or reported, aims 0, no EPS. Over the course of this hospitalization pt was attending groups, pt also had medication management, had therapeutic milieu. Overall pt improved significantly, pt's affect became brighter, pt was less depressed, has realistic future oriented plans, pt also does not appear to be psychotic, or anxious, pt was socially appropriate, no behavioral issues, pts insight improved as well and soon pt deemed to be ready for discharge. Patient was offered to be referred to [facility], but patient declined that offer. At the time of the discharge patient pose no imminent danger to self or others, will be following up at mental health clinic, information about follow up appointment, time and address provided to the pt, (see SW note for more detailed information). It is a patient responsibility to follow up with outpatient clinic, PMD as well as specialists In case patient will need to obtain results of studies pending at discharge, patient was provided with contact information of Psychiatric Inpatient unit [phone] as well as Medical Record Department [phone], as well as [facility] team [phone]. Patient refused to have nicotine patch Patient reported that she drinks socially does not want to be on naltrexone and does not want to be referred to dual diagnosis clinic pt was provided with prescriptions see medication reconciliation form Pt was educated about safety plan in case of worsening of symptoms or in case of suicidal or homicidal ideation call 911 or go to the nearest ER, also was educated to take meds as prescribed and stay away from drugs, pt verbalized understanding. 09/20/18 19:07 09/20/18 19:07 Lab Results 09/21/18 07:15: TSH 3rd Generation 2.25 09/21/18 07:15: Fasting Glucose 92, Triglycerides 105, Cholesterol 144, LDL Cholesterol Direct 78, HDL Cholesterol 49 09/20/18 19:07: Alcohol, Quantitative < 10 09/20/18 19:07: Sodium 137, Potassium 3.8, Chloride 104, Carbon Dioxide 25, Anion Gap 12, BUN 14, Creatinine 0.8, Est GFR ( Amer) > 60, Est GFR (Non- Af Amer) > 60, Random Glucose 93, Calcium 9.0, Total Bilirubin 0.7, AST 25, ALT 25, Alkaline Phosphatase 84, Total Protein 7.5, Albumin 4.2, Globulin 3.3, Albumin/Globulin Ratio 1.3 09/20/18 19:07: WBC 4.2 L, RBC 4.73, Hgb 14.6, Hct 42.1, MCV 89.0, MCH 30.9, MCHC 34.7, RDW 12.9, Plt Count 155, MPV 9.3, Neut % (Auto) 40.1 L, Lymph % (Auto) 39.5 H, [place] % (Auto) 11.0 H, Eos % (Auto) 8.4 H, Baso % (Auto) 1.0, Lymph # (Auto) 1.7, [place] # (Auto) 0.5, Eos # (Auto) 0.4, Baso # (Auto) 0.04, Absolute Neuts (auto) 1.68 09/20/18 19:07: Salicylates < 1 L, Acetaminophen < 10.0 L 09/20/18 16:02: Urine Opiates Screen Negative, Urine Methadone Screen Negative, Ur Barbiturates Screen Negative, Ur Phencyclidine Scrn Negative, Ur Amphetamines Screen Negative, U Benzodiazepines Scrn Negative, U Oth Cocaine Metabols Negative, U Cannabinoids Screen Negative 09/20/18 14:50: Urine Color Yellow, Urine Appearance Clear, Urine pH 6.0, Ur Specific [place] 1.020, Urine Protein Negative, Urine Glucose (UA) Negative, Urine Ketones Negative, Urine Blood Negative, Urine Nitrate Negative, Urine Bilirubin Negative, Urine Urobilinogen 0.2, Ur Leukocyte Esterase Negative Vital Signs Temp Pulse Resp BP Pulse Ox 09/21/18 08:57 147/88 09/21/18 07:24 98.0 F 78 20 147/88 09/21/18 00:00 98.0 F 65 18 140/86 09/20/18 22:42 98.0 F 63 16 144/82 97 09/20/18 19:32 67 15 139/87 95 09/20/18 17:00 68 18 132/66 96 09/20/18 15:00 76 18 140/78 95 09/20/18 13:42 98.8 F 78 18 135/89 96 - Diagnosis (1) Schizoaffective disorder Current Visit: Yes Status: Chronic Priority: High (2) PTSD (post-traumatic stress disorder) Current Visit: Yes Status: Chronic Priority: Medium - Final Diagnosis (DSM 5) Condition upon Discharge: GOOD Disposition: HOME/ ROUTINE Follow-up Treatment Plan: At the time of the discharge patient pose no imminent danger to self or others, will be following up at mental health clinic, information about follow up appointment, time and address provided to the pt, (see SW note for more detailed information). It is a patient responsibility to follow up with outpatient clinic, PMD as well as specialists In case patient will need to obtain results of studies pending at discharge, patient was provided with contact information of Psychiatric Inpatient unit [phone] as well as Medical Record Department [phone], as well as [facility] team [phone]. Patient refused to have nicotine patch Patient reported that she drinks socially does not want to be on naltrexone and does not want to be referred to dual diagnosis clinic pt was provided with prescriptions see medication reconciliation form Pt was educated about safety plan in case of worsening of symptoms or in case of suicidal or homicidal ideation call 911 or go to the nearest ER, also was educated to take meds as prescribed and stay away from drugs, pt verbalized understanding. Prescriptions/Medication Reconciliation: amLODIPine [Norvasc] 2.5 mg PO DAILY #7 tab Apixaban [Eliquis] 5 mg PO BID #14 tab Aspirin [Ecotrin] 81 mg PO DAILY #7 tabec Escitalopram [Lexapro] 10 mg PO DAILY #14 tab hydroCHLOROthiazide [Microzide] 12.5 mg PO DAILY #7 cap Multivitamin Therapeutic Tab [Thera Tab] 1 tab PO 0800 #14 tab risperiDONE [RisperDAL Tab] 2 mg PO AMHS #30 tab traZODone [Desyrel] 50 mg PO HS PRN #14 tab PRN Reason: depression/insomnia - Tobacco Cessation Tobacco Use Status for the last 30 days: Light User(<=4 cigs daily, cigar/pipes not daily,or smokeless tobacco) Tobacco Use Treatment Practical Counseling Provided: Yes Tobacco Use Treatment FDA-Approved Cessation Medication Provided: No Reason for not providing: Patient refused tobacco cessation medication Smoking Cessation Prescription was given: No If no, reason for not providing: Patient refused - Alcohol or Substance Abuse Does the patient have an Alcohol or Substance Abuse Disorder: Yes A prescription for an FDA-approved medication for alcohol and drug dependence was given to the patient at discharge: No If no,reason for not providing: Patient refused - Antipsychotic Medications Pt discharged on 2 or more routine antipsychotic medications: No
== END 2018-09-27 15:56 | disposition home or self-care (01) | DRG 430 ==
LOC: ED 12:27 → ERH 19:44 → PSYC 21:17
PROVIDERS: ADMIT Psychiatry & Neurology Psychiatry; ATTEND Psychiatry & Neurology Psychiatry
PROC: GZ3ZZZZ Medication Management (ICD-10-PCS; principal; 2018-09-20)
DX: F25.9 Schizoaffective disorder, unspecified (principal); F43.10 Post-traumatic stress disorder, unspecified; R45.851 Suicidal ideations; F31.9 Bipolar disorder, unspecified; F41.8 Other specified anxiety disorders; I10 Essential (primary) hypertension; I73.9 Peripheral vascular disease, unspecified; F17.210 Nicotine dependence, cigarettes, uncomplicated; Z59.0 Homelessness; Z85.46 Personal history of malignant neoplasm of prostate; Z86.718 Personal history of other venous thrombosis and embolism; Z81.8 Family history of other mental and behavioral disorders